=== PATIENT | female | born 1945 | race Caucasian/White ===

== ENCOUNTER 2018-04-08 02:02 | Outpatient (CLI) | payer MEDICARE | END 2018-04-08 02:03 | disposition EMS.NT | LOC: EMS 02:02 | PROVIDERS: ATTEND Surgery | DX: R46.4 Slowness and poor responsiveness (principal); R73.09 Other abnormal glucose; R61 Generalized hyperhidrosis ==

== ENCOUNTER 2019-05-26 02:30 | Outpatient (CLI) | payer MEDICARE | END 2019-05-26 02:31 | disposition EMS.NT | LOC: EMS 02:30 | PROVIDERS: ATTEND Surgery | DX: R47.81 Slurred speech (principal) ==

== ENCOUNTER 2022-06-13 00:37 | Outpatient (CLI) | payer MEDICARE | END 2022-06-13 00:38 | disposition EMS.NT | LOC: EMS 00:37 | DX: R06.02 Shortness of breath (principal); R07.81 Pleurodynia ==

== ENCOUNTER 2022-07-20 14:04 | Outpatient (CLI) | payer MEDICARE | END 2022-07-20 14:05 | disposition EMS.NT | LOC: EMS 14:04 | DX: R40.4 Transient alteration of awareness (principal) ==

== ENCOUNTER → 2022-12-06 | Outpatient (CLI) | payer MEDICARE | END | disposition short-term general hospital (02) | LOC: EMS 19:38 | DX: R05.9 Cough, unspecified (principal); R06.00 Dyspnea, unspecified; R10.31 Right lower quadrant pain; E11.65 Type 2 diabetes mellitus with hyperglycemia; R00.0 Tachycardia, unspecified | CPT/HCPCS: A0425; A0427 ==

== ENCOUNTER 2022-12-16 20:39 | Outpatient (CLI) | payer MEDICARE | END 2022-12-16 23:59 | disposition short-term general hospital (02) | LOC: EMS 20:39 | DX: R06.02 Shortness of breath (principal); R05.9 Cough, unspecified | CPT/HCPCS: A0425; A0429 ==

== ENCOUNTER 2023-08-16 15:06 | Outpatient (CLI) | payer MEDICARE | END 2023-08-16 23:59 | disposition short-term general hospital (02) | LOC: EMS 15:06 | DX: R53.1 Weakness (principal); R07.9 Chest pain, unspecified; R06.00 Dyspnea, unspecified; E11.65 Type 2 diabetes mellitus with hyperglycemia; Z79.4 Long term (current) use of insulin | CPT/HCPCS: A0425; A0427 ==

== ENCOUNTER → 2023-08-31 | Outpatient (CLI) | payer MEDICARE | END | disposition short-term general hospital (02) | LOC: EMS 09:07 | DX: R41.82 Altered mental status, unspecified (principal); R32 Unspecified urinary incontinence; R15.9 Full incontinence of feces; R47.1 Dysarthria and anarthria; R00.0 Tachycardia, unspecified; R06.82 Tachypnea, not elsewhere classified; R53.1 Weakness; R29.810 Facial weakness; E11.65 Type 2 diabetes mellitus with hyperglycemia | CPT/HCPCS: A0425; A0427 ==

== ENCOUNTER 2023-10-04 10:39 | Outpatient (CLI) | payer MEDICARE | END 2023-10-04 10:40 | disposition short-term general hospital (02) | LOC: EMS 10:39 | DX: R47.81 Slurred speech (principal); R53.1 Weakness; R41.0 Disorientation, unspecified; R45.1 Restlessness and agitation | CPT/HCPCS: A0425; A0429 ==

== ENCOUNTER 2023-10-16 22:25 | Outpatient (CLI) | payer MEDICARE | END 2023-10-16 22:26 | disposition critical access hospital (66) | LOC: EMS 22:25 | DX: R40.4 Transient alteration of awareness (principal); R46.89 Other symptoms and signs involving appearance and behavior | CPT/HCPCS: A0425; A0429 ==

== ENCOUNTER 2023-10-16 23:12 | Emergency (ER) | payer MEDICARE ==
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
[2023-10-16 23:32] LABS: BASOPHILS # (AUTO) 0.1 10^3/uL (0.0-0.1); BASOPHILS % (AUTO) 0.8 %; EOSINOPHILS # (AUTO) 0.3 10^3/uL (0.0-0.7); EOSINOPHILS % (AUTO) 2.8 %; HCT - HEMATOCRIT 39.6 % (37.0-47.0); HGB - HEMOGLOBIN 12.4 g/dL (12.0-16.0); LYMPHOCYTES # (AUTO) 3.3 10^3/uL (1.5-3.5); LYMPHOCYTES % (AUTO) 35.9 %; MEAN CORPUSCULAR HGB CONC 31.3 g/dL (32.0-36.0); MEAN CORPUSCULAR VOLUME 86.1 fL (81.0-99.0); MONOCYTES # (AUTO) 0.7 10^3/uL (0.0-1.0); MONOCYTES % (AUTO) 7.9 %; NEUTROPHILS # (AUTO) 4.8 10^3/uL (1.5-6.6); NEUTROPHILS % (AUTO) 52.4 %; PLT - PLATELET COUNT 284 10^3/uL (130-450); RED CELL DISTRIBUTION WIDTH 14.5 % (12.0-15.0); WHITE BLOOD COUNT 9.1 x10^3/uL (4.8-10.8)
[2023-10-16] MEDS: HALOPERIDOL 5 MG/ML VIAL IVP STA (23:41)
[2023-10-16] MEDS: QUEtiapine 25 MG TABLET PO STA (23:44)
[2023-10-16 23:52] LABS: ACETAMINOPHEN 0.3 ug/mL; ALBUMIN/GLOBULIN RATIO 1.6 (1.0-2.2); ALKALINE PHOSPHATASE 56 IU/L (42-121); ALT ALANINE AMINOTRANSFERASE 19 IU/L (10-60); AST ASPARTATE AMINOTRANSFERASE 28 IU/L (10-42); BILIRUBIN,TOTAL 0.2 mg/dL (0.2-1.0); BUN - BLOOD UREA NITROGEN 16 mg/dL (6-20); CALCIUM 9.6 mg/dL (8.5-10.3); CARBON DIOXIDE - CO2 28 mmol/L (21-32); CHLORIDE 106 mmol/L (101-111); CK- CREATINE KINASE 33 IU/L (30-223); CREATININE 0.8 mg/dL (0.6-1.3); ETOH - ETHANOL < 10.0 mg/dL; GFR - MDRD 70 (>89); GLUCOSE 86 mg/dL (74-104); LIPASE 18 U/L (11-82); MAGNESIUM 1.6 mg/dL (1.7-2.3); POTASSIUM 3.9 mmol/L (3.5-4.5); SODIUM 138 mmol/L (135-145); TOTAL PROTEIN 6.5 g/dL (6.4-8.9)
[2023-10-16 23:56] LABS: SALICYLATE < 1.5 mg/dL
[2023-10-17 00:01] LABS: THYROID STIMULATING HORMONE 1.67 uIU/mL (0.34-5.60)
[2023-10-17 00:57] LABS: BILIRUBIN,URINE NEGATIVE (NEGATIVE); GLUCOSE, URINE (UA) NEGATIVE (NEGATIVE); KETONES,URINE (UA) TRACE mg/dL (NEGATIVE); LEUKOCYTE ESTERASE, URINE LARGE (NEGATIVE); NITRITE,URINE NEGATIVE (NEGATIVE); OCCULT BLOOD,URINE NEGATIVE (NEGATIVE); PROTEIN,URINE NEGATIVE (NEGATIVE); UROBILINOGEN,URINE 0.2 (NORMAL) E.U./dL (NORMAL)
[2023-10-17 01:03] LABS: CLARITY,URINE CLOUDY (CLEAR)
[2023-10-17 01:08] LABS: AMPHETAMINE SCREEN,URINE NEGATIVE (NEGATIVE); BACTERIA,URINE Many /HPF (None Seen); BENZODIAZEPINES SCREEN, URINE POSITIVE (NEGATIVE); COCAINE SCREEN URINE NEGATIVE (NEGATIVE); METHAMPHETAMINES SCREEN, URINE NEGATIVE (NEGATIVE); OPIATE SCREEN, URINE NEGATIVE (NEGATIVE); RBC,URINE 0-5 /HPF (0-5); SQUAMOUS EPITHELIAL CELL,UR RARE Squamous (<= Few); THC CANNABINOID SCREEN, URINE NEGATIVE (NEGATIVE); TRICYCLIC ANTIDEPRESSANT,URINE NEGATIVE (NEGATIVE); WBC,URINE >25 /HPF (0-5)
[2023-10-17 01:09] LABS: BARBITURATE SCREEN,UR NEGATIVE (NEGATIVE); BUPRENORPHINE SCREEN, URINE NEGATIVE (NEGATIVE); METHADONE SCREEN, URINE NEGATIVE (NEGATIVE); OXYCODONE SCREEN, URINE NEGATIVE (NEGATIVE)
--- NOTE | 2023-10-17 01:09 | CT Report ---
PROCEDURE: Head WO INDICATIONS: confusion, agitation TECHNIQUE: Noncontrast 4.5 mm thick angled axial sections acquired from the foramen magnum to the vertex. For r adiation dose reduction, the following was used: automated exposure control, adjustment of mA and/or kV according to patient size. COMPARISON: None. FINDINGS: Image quality: Diagnostic CSF spaces: Basal cisterns are patent. Lateral ventricles are symmetric. Volume: Vascular calcifications. Periventricular white matter disease is commonly seen with chronic m icroangiopathy. Volume loss is present. These findings are moderate. Brain: Encephalomalacia in the right occipital lobe, chronic. No gross loss of hall-white differentia tion otherwise, no acute intracranial hemorrhage. Craniofacial structures: No paranasal sinus opacification. IMPRESSION: No acute intracranial abnormality. Old encephalomalacia in the right occipital lobe. If there is high concern for parenchymal pathology, consider further evaluation with MRI. Reviewed by: Alvin Bautista MD on 10/17/2023 1:08 AM [facility] Approved by: Alvin Bautista MD on 10/17/2023 1:08 AM [facility] Station ID: [id number]
[2023-10-17] MEDS: cefTRIAXone 1 GM VIAL IVP STA (01:31)
[2023-10-17 01:57] VITALS: BP 182/76; O2SAT 98
== END 2023-10-17 02:42 | disposition home or self-care (01) ==
LOC: EDBD → EDUNIT# → ED 23:12
DX: N39.0 Urinary tract infection, site not specified (principal); B95.2 Enterococcus as the cause of diseases classified elsewhere; R41.0 Disorientation, unspecified; E11.9 Type 2 diabetes mellitus without complications; E03.9 Hypothyroidism, unspecified; I10 Essential (primary) hypertension; Z79.899 Other long term (current) drug therapy; Z79.84 Long term (current) use of oral hypoglycemic drugs
CPT/HCPCS: 36415; 70450; 80053; 80306; 80307; 81001; 82550; 83690; 83735; 84443; 85025; 87077; 87086; 96374; 96375; 99284; G0480; 80320; 80329; 81003; 87181

== ENCOUNTER 2023-10-25 03:59 | Outpatient (CLI) | payer MEDICARE | END 2023-10-25 04:00 | disposition critical access hospital (66) | LOC: EMS 03:59 | DX: R53.1 Weakness (principal); R29.810 Facial weakness; R47.81 Slurred speech; H53.9 Unspecified visual disturbance; R44.1 Visual hallucinations | CPT/HCPCS: A0425; A0427 ==

== ENCOUNTER 2023-10-25 04:43 | Inpatient (IN) | payer MEDICARE ==
--- NOTE | 2023-10-25 05:04 | ED Physician Documentation ---
History of Present Illness - Stated complaint Stated Complaint: WEAKNESS, RT SIDE DEFICIT, GLF - Chief complaint Chief Complaint: Neuro - History obtained from History obtained from: EMS - Additonal information Additional information: WILIAM. HPI is from EMS. Patient fell at approximately 3 AM this morning while walking to the bathroom. There is no reports of injury from family that was on scene, while EMS was assessing the patient, family (specifically, patient's daughter) said that she has been noting patient exhibiting slurred speech, making comments that would indicate visual hallucinations and right-sided weakness since 3 PM yesterday. EMS says that family initially was not concerned about these findings, but due to history of stroke however, as they were talking to EMS, a became less confident as to which side was involved in the previous stroke. EMS says that on initial evaluation, they noted right-sided weakness (manifest in the right upper extremity), but patient did not seem to have a left upper extremity weakness on reevaluation shortly prior to arrival to the ER. I cannot obtain HPI/ROS from patient, as her speech is essentially unintelligible. Is unclear to me if this is due to slurred speech or very quiet speech; she seems to be having elements of both of these. Patient was treated and released from this emergency department 9 days ago with chief concerns of confusion, agitation, and tearful affect for 3 days. The ED MD note from that visit also indicates "history limited by patient AMS".The ED MD note from that visit indicates that there were no concerning or diagnostic findings on blood test, CT head. No specific diagnosis was achieved. Andrew is patient's 11th ED visit over the past 12 months to 4 different [facility] emergency departments. A number of these visits include inpatient stays for many different diagnoses that are too numerous and varied to summarize in this HPI. Review of Systems Unable to obtain: Other (speaks very quietly but also with slurred speech; I cannot understand anything she is trying to say to me. She is awake and following commands, makes good eye contact) PD PAST MEDICAL HISTORY - Past Medical History Past Medical History: Yes Neuro: CVA Endocrine/Autoimmune: Type 2 diabetes - Present Medications Home Medications: Ambulatory Orders Medication Instructions Recorded Confirmed Atorvastatin [Lipitor] 10/16/23 Calcium Carbonate [Calcium] 600 mg PO 10/16/23 Empagliflozin [Jardiance] 10/16/23 Ferrous Fumarate/Ascorbic Acid 10/16/23 [Js-Sequels 65-25 mg Caplet] Irbesartan 10/16/23 Levothyroxine [Synthroid] 50 mcg PO QDAC 10/16/23 Magnesium Oxide [Mag Ox] 400 mg PO 0800 10/16/23 Metoclopramide [Reglan] 10/16/23 Polyethylene Glycol 8000 500 gm MC 10/16/23 [Polyethylene Glycol] Quetiapine Fumarate [Seroquel] 50 mg PO 10/16/23 Venlafaxine [Effexor] 75 mg PO BID 10/16/23 Cefpodoxime Proxetil [Vantin] 200 mg PO Q12H #28 tablet 10/17/23 - Allergies Allergies/Adverse Reactions: Allergies Allergy/AdvReac Type Severity Reaction Status Date / Time ampicillin Allergy Rash Verified 10/25/23 04:58 cefuroxime Allergy Unknown Verified 10/25/23 04:58 heparin Allergy Unknown Verified 10/25/23 04:58 - Social History Does the pt smoke?: No Smoking Status: Never smoker PD ED PE NORMAL - Vitals Vital signs reviewed: Yes - General General: No acute distress, Well developed/nourished, Other (awake, alert. unable to ascertain orientation due to unintelligible speech) - HEENT HEENT: Atraumatic, PERRL, EOMI, Other (parched mucous membranes) - Neck Neck: Supple, no meningeal sign - Cardiac Cardiac: RRR - Respiratory Respiratory: No respiratory distress, Clear bilaterally - Derm Derm: Normal color, Warm and dry - Neuro Neuro: No motor deficit (4/5 (but equal) bilateral attraction worker strength and bilateral plantarflexion) Eye Opening: Spontaneous Motor: Obeys Commands PD ED PE EXPANDED - Cardiac Cardiac: Murmur Present (2/6 CHANDAN cardiac base) Results - Vitals Vitals: Vital Signs - 24 hr 10/25/23 10/25/23 10/25/23 04:51 05:00 05:30 Temperature 36 C L Heart Rate 102 H 103 H 106 H Respiratory 15 18 21 Rate Blood Pressure 138/64 H 134/44 H 145/79 H O2 Saturation 100 94 99 10/25/23 10/25/23 10/25/23 06:00 08:00 09:00 Temperature Heart Rate 104 H 106 H 110 H Respiratory 17 20 16 Rate Blood Pressure 136/94 H 118/48 L 118/57 L O2 Saturation 100 95 98 Oxygen O2 Source Room air - Labs Labs: Laboratory Tests 10/25/23 10/25/23 10/25/23 05:21 05:21 05:58 WBC 13.8 H RBC 4.51 Hgb 12.1 Hct 39.8 MCV 88.2 MCH 26.8 L MCHC 30.4 L RDW 14.6 Plt Count 307 MPV 10.9 H Neut # (Auto) 12.7 H Lymph # (Auto) 0.5 L [place] # (Auto) 0.5 Eos # (Auto) 0.0 Baso # (Auto) 0.1 Absolute Nucleated RBC 0.00 Nucleated RBC % 0.0 VBG pH VBG pCO2 VBG pO2 VBG HCO3 VBG Total CO2 VBG O2 Saturation VBG Base Excess Sodium 135 Potassium 5.7 H Chloride 103 Carbon Dioxide 6 L* Anion Gap 26.0 H BUN 27 H Creatinine 1.2 Estimated GFR (MDRD) 44 L Glucose 402 H POC Whole Bld Glucose Calcium 9.0 Magnesium Total Bilirubin 0.3 AST 10 ALT 9 L Alkaline Phosphatase 60 Total Protein 7.1 Albumin 4.5 Globulin 2.6 Albumin/Globulin Ratio 1.7 Lipase < 10 L Urine Color YELLOW Urine Clarity HAZY Urine pH 5.5 Ur Specific [place] 1.025 Urine Protein 30 H Urine Glucose (UA) 500 H Urine Ketones >=80 H Urine Occult Blood TRACE-INTA Urine Nitrite NEGATIVE Urine Bilirubin NEGATIVE Urine Urobilinogen 0.2 (NORMAL) Ur Leukocyte Esterase TRACE H Urine RBC 0-5 Urine WBC 4-5 Ur Squamous Epith Cells FEW Squamous Urine Bacteria Rare Urine Yeast PRESENT Ur Microscopic Review INDICATED Urine Culture Comments INDICATED Urine Opiates Screen NEGATIVE Ur Buprenorphine Scrn NEGATIVE Ur Oxycodone Screen NEGATIVE Urine Methadone Screen NEGATIVE Ur Barbiturates Screen NEGATIVE Ur Tricyclics Screen NEGATIVE Ur Phencyclidine Scrn NEGATIVE Ur Amphetamine Screen NEGATIVE U Methamphetamines Scrn NEGATIVE U Benzodiazepines Scrn POSITIVE H Urine Cocaine Screen NEGATIVE U Cannabinoids Screen NEGATIVE Ur Drug Screen Comment CUTOFF CONC BELOW: Ethyl Alcohol < 10.0 Serum Ketones 10/25/23 10/25/23 10/25/23 06:33 06:33 06:33 WBC RBC Hgb Hct MCV MCH MCHC RDW Plt Count MPV Neut # (Auto) Lymph # (Auto) [place] # (Auto) Eos # (Auto) Baso # (Auto) Absolute Nucleated RBC Nucleated RBC % VBG pH 7.052 L* VBG pCO2 19.1 L VBG pO2 55.7 H VBG HCO3 5.2 L VBG Total CO2 5.8 L VBG O2 Saturation 83.7 H VBG Base Excess -23.5 L Sodium 135 Potassium 5.9 H Chloride 104 Carbon Dioxide 5 L* Anion Gap 26.0 H BUN 27 H Creatinine 1.2 Estimated GFR (MDRD) 44 L Glucose 404 H POC Whole Bld Glucose Calcium 9.1 Magnesium 1.8 Total Bilirubin AST ALT Alkaline Phosphatase Total Protein Albumin Globulin Albumin/Globulin Ratio Lipase Urine Color Urine Clarity Urine pH Ur Specific [place] Urine Protein Urine Glucose (UA) Urine Ketones Urine Occult Blood Urine Nitrite Urine Bilirubin Urine Urobilinogen Ur Leukocyte Esterase Urine RBC Urine WBC Ur Squamous Epith Cells Urine Bacteria Urine Yeast Ur Microscopic Review Urine Culture Comments Urine Opiates Screen Ur Buprenorphine Scrn Ur Oxycodone Screen Urine Methadone Screen Ur Barbiturates Screen Ur Tricyclics Screen Ur Phencyclidine Scrn Ur Amphetamine Screen U Methamphetamines Scrn U Benzodiazepines Scrn Urine Cocaine Screen U Cannabinoids Screen Ur Drug Screen Comment Ethyl Alcohol Serum Ketones MODERATE H 10/25/23 08:13 WBC RBC Hgb Hct MCV MCH MCHC RDW Plt Count MPV Neut # (Auto) Lymph # (Auto) [place] # (Auto) Eos # (Auto) Baso # (Auto) Absolute Nucleated RBC Nucleated RBC % VBG pH VBG pCO2 VBG pO2 VBG HCO3 VBG Total CO2 VBG O2 Saturation VBG Base Excess Sodium Potassium Chloride Carbon Dioxide Anion Gap BUN Creatinine Estimated GFR (MDRD) Glucose POC Whole Bld Glucose 406 H Calcium Magnesium Total Bilirubin AST ALT Alkaline Phosphatase Total Protein Albumin Globulin Albumin/Globulin Ratio Lipase Urine Color Urine Clarity Urine pH Ur Specific [place] Urine Protein Urine Glucose (UA) Urine Ketones Urine Occult Blood Urine Nitrite Urine Bilirubin Urine Urobilinogen Ur Leukocyte Esterase Urine RBC Urine WBC Ur Squamous Epith Cells Urine Bacteria Urine Yeast Ur Microscopic Review Urine Culture Comments Urine Opiates Screen Ur Buprenorphine Scrn Ur Oxycodone Screen Urine Methadone Screen Ur Barbiturates Screen Ur Tricyclics Screen Ur Phencyclidine Scrn Ur Amphetamine Screen U Methamphetamines Scrn U Benzodiazepines Scrn Urine Cocaine Screen U Cannabinoids Screen Ur Drug Screen Comment Ethyl Alcohol Serum Ketones - Rads (name of study) CTH Relevant Findings:: Prelim report reviewed, See rad report PD Medical Decision Making - ED course Complexity details: reviewed old records, reviewed results, re-evaluated patient, considered differential, d/w patient ED course: No concerning findings on the CT head. The ED MD note from her visit 9 days ago indicates that records from [place] were obtained and a more thorough stroke-oriented workup was undertaken including CT and MRI of brain "with no evidence of stroke, though she does have microvascular changes." There are significant abnormalities on tonight's blood tests, including hyperglycemia, CO2 of 6, pH of 7.05 on VBG, and moderate serum ketones. She has noted to be slightly tachypneic and having noticeably large tidal volumes (by my observation, not by measurement). These findings would all be consistent with DKA, which could explain AMS. These labs are resulted shortly before the end of my shift. Care of patient is turned over to the oncoming ED physician (Dr. Greenfield) at the end of my shift. Departure - Departure Disposition: 66 [facility] DC/Xfer Clinical Impression: Altered mental status, DKA, type 2 Forms: PCP List
[2023-10-25 05:31] LABS: BASOPHILS # (AUTO) 0.1 10^3/uL (0.0-0.1); BASOPHILS % (AUTO) 0.4 %; EOSINOPHILS % (AUTO) 0.1 %; HCT - HEMATOCRIT 39.8 % (37.0-47.0); HGB - HEMOGLOBIN 12.1 g/dL (12.0-16.0); LYMPHOCYTES # (AUTO) 0.5 10^3/uL (1.5-3.5); LYMPHOCYTES % (AUTO) 3.5 %; MEAN CORPUSCULAR HEMOGLOBIN 26.8 pg (27.0-31.0); MEAN CORPUSCULAR HGB CONC 30.4 g/dL (32.0-36.0); MEAN CORPUSCULAR VOLUME 88.2 fL (81.0-99.0); MEAN PLATELET VOLUME 10.9 fL (7.9-10.8); MONOCYTES # (AUTO) 0.5 10^3/uL (0.0-1.0); MONOCYTES % (AUTO) 3.5 %; NEUTROPHILS # (AUTO) 12.7 10^3/uL (1.5-6.6); NEUTROPHILS % (AUTO) 91.8 %; PLT - PLATELET COUNT 307 10^3/uL (130-450); RED BLOOD COUNT 4.51 10^6/uL (4.20-5.40); RED CELL DISTRIBUTION WIDTH 14.6 % (12.0-15.0); WHITE BLOOD COUNT 13.8 x10^3/uL (4.8-10.8)
[2023-10-25 06:04] LABS: ALBUMIN 4.5 g/dL (3.2-5.5); ETOH - ETHANOL < 10.0 mg/dL
[2023-10-25 06:11] LABS: BILIRUBIN,URINE NEGATIVE (NEGATIVE); GLUCOSE, URINE (UA) 500 mg/dL (NEGATIVE); KETONES,URINE (UA) >=80 mg/dL (NEGATIVE); LEUKOCYTE ESTERASE, URINE TRACE (NEGATIVE); NITRITE,URINE NEGATIVE (NEGATIVE); OCCULT BLOOD,URINE TRACE-INTA (NEGATIVE); PH,URINE 5.5 PH (5.0-7.5); PROTEIN,URINE 30 mg/dL (NEGATIVE); UROBILINOGEN,URINE 0.2 (NORMAL) E.U./dL (NORMAL)
[2023-10-25 06:15] LABS: CLARITY,URINE HAZY (CLEAR)
[2023-10-25 06:18] LABS: BACTERIA,URINE Rare /HPF (None Seen); RBC,URINE 0-5 /HPF (0-5); SQUAMOUS EPITHELIAL CELL,UR FEW Squamous (<= Few); YEAST,URINE PRESENT
[2023-10-25 06:22] LABS: ALBUMIN/GLOBULIN RATIO 1.7 (1.0-2.2); ALKALINE PHOSPHATASE 60 IU/L (42-121); ALT ALANINE AMINOTRANSFERASE 9 IU/L (10-60); AST ASPARTATE AMINOTRANSFERASE 10 IU/L (10-42); BILIRUBIN,TOTAL 0.3 mg/dL (0.2-1.0); BUN - BLOOD UREA NITROGEN 27 mg/dL (6-20); CARBON DIOXIDE - CO2 6 mmol/L (21-32); CHLORIDE 103 mmol/L (101-111); CREATININE 1.2 mg/dL (0.6-1.3); GFR - MDRD 44 (>89); GLUCOSE 402 mg/dL (74-104); LIPASE < 10 U/L (11-82); POTASSIUM 5.7 mmol/L (3.5-4.5); SODIUM 135 mmol/L (135-145); TOTAL PROTEIN 7.1 g/dL (6.4-8.9)
[2023-10-25 06:29] LABS: AMPHETAMINE SCREEN,URINE NEGATIVE (NEGATIVE); BARBITURATE SCREEN,UR NEGATIVE (NEGATIVE); BENZODIAZEPINES SCREEN, URINE POSITIVE (NEGATIVE); BUPRENORPHINE SCREEN, URINE NEGATIVE (NEGATIVE); COCAINE SCREEN URINE NEGATIVE (NEGATIVE); METHADONE SCREEN, URINE NEGATIVE (NEGATIVE); METHAMPHETAMINES SCREEN, URINE NEGATIVE (NEGATIVE); OPIATE SCREEN, URINE NEGATIVE (NEGATIVE); OXYCODONE SCREEN, URINE NEGATIVE (NEGATIVE); THC CANNABINOID SCREEN, URINE NEGATIVE (NEGATIVE); TRICYCLIC ANTIDEPRESSANT,URINE NEGATIVE (NEGATIVE)
[2023-10-25 06:41] LABS: VBG BASE EXCESS -23.5 mmol/L (-2 - +2); VBG HCO3 5.2 mmol/L (23-28); VBG PCO2 19.1 mmHg (41-51); VBG PO2 55.7 mmHg (25-47); VBG TOTAL CO2 5.8 mmol/L (24-29)
[2023-10-25 06:42] LABS: VBG OXYGEN SATURATION 83.7 % (60-80)
[2023-10-25 06:44] LABS: VBG PH 7.052 (7.31-7.41)
--- NOTE | 2023-10-25 07:56 | CT Report ---
PROCEDURE: Head WO INDICATIONS: AMS TECHNIQUE: Noncontrast 4.5 mm thick angled axial sections acquired from the foramen magnum to the vertex. For r adiation dose reduction, the following was used: automated exposure control, adjustment of mA and/or kV according to patient size. COMPARISON: CT head 10/17/2023. FINDINGS: Image quality: Excellent. CSF spaces: Basal cisterns are patent. No extra-axial fluid collections. Ventricles are normal in size and shape. Brain: No midline shift. No acute intracranial hemorrhage or mass effect. Small area of chronic ence phalomalacia seen in the medial posterior right occipital lobe as previously seen, related to an old infarct. There is also a small focus of chronic encephalomalacia in the left upper anitha. Mild general ized parenchymal volume loss is again noted and there are mild chronic microvascular ischemic changes . Intracranial atherosclerotic calcifications are present. Skull and face: Calvarium and visualized facial bones are intact, without suspicious lesions. Sinuses: Visualized sinuses and mastoids are clear. IMPRESSION: 1.No acute intracranial pathology. 2.Stable remote prior infarcts in the right occipital lobe and left anitha. Reviewed by: Jt Ram MD on 10/25/2023 7:55 AM PST Approved by: Jt Ram MD on 10/25/2023 7:55 AM PST Station ID: [id number]
[2023-10-25 07:59] LABS: MAGNESIUM 1.8 mg/dL (1.7-2.3)
[2023-10-25 08:05] LABS: CALCIUM 9.1 mg/dL (8.5-10.3); CREATININE 1.2 mg/dL (0.6-1.3); POTASSIUM 5.9 mmol/L (3.5-4.5)
[2023-10-25] MEDS: INSULIN REGULAR HUMAN 300 UNIT/3 ML VIAL IVP STA (08:15)
[2023-10-25] MEDS: SODIUM CHLORIDE 0.9% 1,000 ML IV STA ×2 (08:16→08:17)
[2023-10-25] MEDS: INSULIN REGULAR IN 0.9 % NS 100 UNIT/100 ML BAG IV SCH ×2 (10:21→14:08)
[2023-10-25 11:27] LABS: VBG HCO3 5.5 mmol/L (23-28); VBG PO2 45.2 mmHg (25-47); VBG TOTAL CO2 6.1 mmol/L (24-29)
[2023-10-25 11:28] LABS: VBG BASE EXCESS -23.7 mmol/L (-2 - +2); VBG OXYGEN SATURATION 76.1 % (60-80)
[2023-10-25 11:29] LABS: VBG PH 7.033 (7.31-7.41)
[2023-10-25] MEDS: FLUCONAZOLE 200 MG/100 ML 100 ML IV ONE (11:41)
[2023-10-25 11:47] LABS: CALCIUM 8.7 mg/dL (8.5-10.3); CREATININE 1.1 mg/dL (0.6-1.3); POTASSIUM 5.3 mmol/L (3.5-4.5)
--- NOTE | 2023-10-25 12:14 | ED Physician Documentation ---
ED Addendum - Addendum Addendum: 10/25/23 12:11 The patient has been interactive with opening her eyes and verbally com municating and simple words. No obvious localizing deficit of the face. Generalized weakness for arm stock turner and hand stock turner. She does follow commands sluggishly. She remains still acidotic. We had given some fluid bolus and started insulin drip for her DKA. Repeat labs still showed acidosis. Potassium level is still slightly elevated. She is given continued fluids without any electrolyte supplements at this point. We had a weighted opening of a floor bed in the ICU and there is now 1 available. I talked with the hospitalist Dr. Cronin who will admit the patient for ongoing care. Likely trigger for her DKA, could be possible UTI. There is some yeast noted on her urine. A few white cells are still noted along with the ketones. She had had a UTI with Enterococcus on her recent visit. Treated with Vantin so unlikely covered. Did give a dose of Diflucan for yeast and also Cipro for correction levofloxacin for possible UTI. Chest x-ray is clear without any signs of infiltrate. A CT of the head had been done without any acute findings. Old CVAs are noted. Critical care time is 55 minutes including reassessing the patient, ordering medications. Reassessing labs and physical exam including insulin drip and critical lab values. Disposition: The patient is admitted to the hospital in stable condition. Diagnoses: 1. Altered mental status 2. Generalized weakness 3. UTI 4. DKA acute
[2023-10-25] MEDS ORDERED: ONDANSETRON 4 MG/2 ML VIAL IVP PRN (12:21)
[2023-10-25] MEDS: levoFLOXacin 750 MG/150 ML 750 MG/150 ML BAG IV STA (12:53)
[2023-10-25 12:58] LABS: B. PARAPERTUSSIS- RESP PCR PAN NOT DETECTED; B. PERTUSSIS- RESP PCR PANEL NOT DETECTED; C. PNEUMONIAE- RESP PCR PANEL NOT DETECTED; CORONAVIRUS 229E-RESP PCR NOT DETECTED; CORONAVIRUS HKU1-RESP PCR NOT DETECTED; CORONAVIRUS NL63-RESP PCR NOT DETECTED; CORONAVIRUS OC43-RESP PCR NOT DETECTED; HUMAN METAPNEUMOVIRUS NOT DETECTED; INFLUENZA A- RESP PCR PANEL NOT DETECTED; INFLUENZA B - RESP PCR PANEL NOT DETECTED; M. PNEUMONIAE- RESP PCR PANEL NOT DETECTED; PARAINFLUENZA VIRUS 1 NOT DETECTED; PARAINFLUENZA VIRUS 2 NOT DETECTED; PARAINFLUENZA VIRUS 3 NOT DETECTED; PARAINFLUENZA VIRUS 4 NOT DETECTED; RHINOVIRUS/ENTEROVIRUS NOT DETECTED; RSV- RESP PCR PANEL NOT DETECTED; SARS-CoV-2 -RESP PCR PANEL NOT DETECTED
--- NOTE | 2023-10-25 13:11 | XRAY Report ---
PROCEDURE: Chest 1V INDICATIONS: altered mental status TECHNIQUE: One view of the chest was acquired. COMPARISON: Chest radiographs 05/24/2010 FINDINGS: Surgical changes and devices: None. Lungs and pleura: No pleural effusions or pneumothorax. Lungs are clear. Previously seen hiatal h ernia appears less prominent. Mediastinum: Mediastinal contours appear normal. Heart size is normal. Bones and chest wall: No suspicious bony lesions. Overlying soft tissues appear unremarkable. IMPRESSION: No acute cardiopulmonary process. Reviewed by: Jt Ram MD on 10/25/2023 1:09 PM PST Approved by: Jt Ram MD on 10/25/2023 1:09 PM [facility] Station ID: [id number]
[2023-10-25] MEDS: DEXTROSE 5%-0.9% NACL 1,000 ML IV SCH (14:16)
[2023-10-25] MEDS: SODIUM CHLORIDE 0.9% 1,000 ML IV SCH (14:26)
--- NOTE | 2023-10-25 14:40 | HISTORY & PHYSICAL EXAMINATION ---
Chief Complaint - Chief Complaint Chief Complaint: Weakness, DKA History of Present Illness - Admitted From Admitted From:: ED - History Obtained From Records Reviewed: [facility] History obtained from: Chart review, patient Exam Limitations: Altered mental status - History of Present Illness HPI Comment/Other: Corine Sol is a 78 yo F w/ a PMHx of T2DM, CVA, NC, HLD who presented to [facility] for AMS s/p unwitnessed fall at 3 am on 10/25/23. Per EMS patient's daughter reported patient had slurred speech and was making comments that would indicate visual hallucinations and right-sided weakness since 3 PM yesterday. EMS eval uation found right sided weakness. In the ED HPI/ROS was unable to be obtained from patient as her speech was unintelligible, unclear if slurred speech, quiet speech or both. However, she was awake and following commands and made good eye contact. In the ED, she had hyperglycemia, CO2 of 6, pH of 7.05 on VBG, and moderate serum ketones. Yeast and white cells noted along ketones in urine. In ED was given diflucan, ciprofloxacin and levofloxacin. CXR showed no signs of infiltrate. CT showed no acute findings, old CVAs noted. Per ED chart notes, patient was treated and released from this emergency department 9 days ago with chief concerns of confusion, agitation, and tearful affect for 3 days. The ED note from that visit also indicates "history limited by patient AMS". The note from that visit indicates that there were no concerning or diagnostic findings on blood test, CT head. No specific diagnosis was achieved. Per ED chart note, emery is patient's 11th ED visit over the past 12 months to 4 different [facility] emergency departments- "A number of these visits include inpatient stays for many different diagnoses that are too numerous and varied to summarize in this HPI" Upon exam today she is laying down in bed, eyes partially closed and unfocused. She is unable to participate in assessment other than relaying that she has painful urination and her back hurts. Requests food. When giving patient ice chips she becomes tearful. When asked why she feels upset, she responds "I hate my home and I hate it here". MARIAM Espinosa was able to talk to daughter, Joan, on the phone today after admission. Joan plans to come visit patient tomorrow. Patient lives with her daughter and her grandson in a home in [place]. Patient came to live with them after a hospitalization last year, where she was discharged to a SNF, and then after moved in with daughter. Patient is able to ambulate independently with a walker, and her family assists her with ADLs. Patient also has a son, Hector, that lives in [place]. Joan states that patient has a POLST on file and patient is DNR. Review of PMHx with daughter revealed hx of 4 falls in the past year, T2DM, CVA sometime in 2022. No known psychiatric hx. Patient used to use tobacco but quit 24 years ago. Drinks alcohol, approximately 16 oz of vodka daily, with last known drink estimated 10/23/23. Joan states that patient's b lood sugar yesterday at 9pm was 300, and she was given 30 U short acting insulin. She then fell later that night. History - Past Medical History Neuro: reports: CVA Endocrine/Autoimmune: reports: Type 2 diabetes Other Past Medical History: Unable to verify PMHx with patient - Past Surgical History Other past surgical history: Unable to verify PMHx with patient due to AMS - Family & Social History Family History Comment/Other: Unable to assess due to AMS Social History Notes: History obtained from Joan, patient's daughter. Patient lives with her daughter and her grandson in a home in [place]. Patient came to live with them after a hospitalization last year, where she was discharged to a SNF, and then after moved in with daughter. Patient is able to ambulate independently with a walker, and her family assists her with ADLs. Patient also has a son, Hector, that lives in [place]. - Substance History Use: Uses substance without health or social issues: Alcohol Tobacco Details: Cigarettes (Former smoker, quit in 1999) - POLST Patient has POLST: Yes POLST Status: DNR Meds/Allgy - Home Medications Home Medications: Ambulatory Orders Medication Instructions Recorded Confirmed Irbesartan 150 mg PO DAILY 10/16/23 10/25/23 Levothyroxine [Synthroid] 25 mcg PO QDAC 10/16/23 10/25/23 Atorvastatin Calcium 40 mg PO QPM 10/25/23 10/25/23 Empagliflozin [Jardiance] 10 mg PO DAILY 10/25/23 10/25/23 Insulin NPH Hum/Reg Insulin Hm 15 unit SUBQ QPM 10/25/23 10/25/23 [Humulin 70/30 Kwikpen] Insulin NPH Hum/Reg Insulin Hm 30 unit SUBQ DAILY 10/25/23 10/25/23 [Humulin 70/30 Kwikpen] Venlafaxine ER [Effexor ER] 75 mg PO BID 10/25/23 10/25/23 - Allergies Allergies/Adverse Reactions: Allergies Allergy/AdvReac Type Severity Reaction Status Date / Time ampicillin Allergy Rash Verified 10/25/23 04:58 cefuroxime Allergy Unknown Verified 10/25/23 04:58 heparin Allergy Unknown Verified 10/25/23 04:58 Review of Systems - Other Findings Other Findings: Patient states she has back pain and dysuria. Unable to assess full ROS. Patient was altered and unable to respond reliably to questions. Prior Level of Functionality: Per daughterJoan, patient is able to ambulate independently with a walker. Exam - Vital Signs Reviewed Vital Signs: Yes Vital Signs: Vital Signs x48h Pulse Resp BP Pulse Ox 10/25/23 12:00 106 H 18 108/60 100 10/25/23 11:00 105 H 20 113/55 L 100 10/25/23 10:00 106 H 18 103/57 L 98 10/25/23 09:00 110 H 16 118/57 L 98 10/25/23 08:00 106 H 20 118/48 L 95 - Physical Exam General Appearance: positive: Anxious, Other (Elderly woman laying in bed, lethargic with eyes partially open and unfocused. Appropriate hygiene. Looks stated age.) Eyes Bilateral: positive: No lid inflammation, Conjunctivae nml ENT: positive: Dry mucous membranes Neck: positive: Nml inspection Respiratory: positive: Chest non-tender, No respiratory distress, Rhonchi (bilaterally) Cardiovascular: positive: Tachycardia (regular rhythm), Systolic murmur (blowing systolic murmur) Abdomen: positive: No organomegaly, No distention, Tenderness (epigastric tenderness), Other (Soft abdomen). negative: Guarding, Rebound, Mass Skin: positive: Warm, Dry Extremities: positive: Non-tender, No pedal edema Neurologic/Psychiatric: positive: Disoriented to place, Disoriented to time, F acial droop (L side), Other (Anxious affect. Oriented to self. Disorganized speech. Speech is quiet. Tangential/rambling at times.) Conclusion/Plan - Problem List (1) DKA, type 2 Conclusion/Plan: Possible UTI could be trigger for her DKA. SGLT-2 inhibitors can also be culprit of ketoacidosis with hyperglycemia. Ketones present in urine. Glucose upon admission was 406, which has since dropped pH was 7.052 on VBG, with pCO2 if 19.1, pO2 55.7. HCO3 5.2. CO2 on CMP was 6. Plan: - Check VBG, electrolytes, BUN, creatinine and glucose q2-4 hours until stable - continue insulin drip - dextrose drip - Discontinue empagliflozin - continue home medications as appropriate - NPO (2) Altered mental status Conclusion/Plan: Unclear if AMS is due to DKA, UTI, alcohol use or psychiatric etiology. Most likely multifactorial. Will continue to monitor and reassess tomorrow. I think it is appropriate to continue her antidepressant while she is here to avoid uncomfortable sudden withdrawal. Plan: - continue home venlafaxine (3) UTI (urinary tract infection) Conclusion/Plan: WBCs 13.8. Leukocytosis may be from demargination from DKA or infection. However she is able to communicate that she has pain with urination and back pain. Urinalysis shows high specific gravity, leukocyte esterase and WBCs in urine. She has a cefuroxime allergy noted in chart, so will use second line treatment for suspected pyelonephritis, levofloxacin 750mg IV Q24H x5 days, can change to PO when sx improve. Plan: - Start levofloxacin x5 days (4) Alcohol use Conclusion/Plan: Daughter states she uses 16 oz of vodka daily. Last drink 10/23/23 per daughter, however unable to verify this with patient. Toxicology screen positive for benzodiazepines. Plan: - CIWA protocol, ativan if score >8 - Supplemental thiamine, multivitamin (5) Electrolyte abnormality Conclusion/Plan: Potassium upon admission was 5.9, has dropped to 4.1. This will continue to drop significantly with insulin drip, will order NS w/ potassium now in anticipation of this. Plan: - NS w/ K - continue to check potassium q2 hours - ICU Electrolyte repletion protocol (6) Systolic murmur Conclusion/Plan: Blowing systolic murmur best heard at upper sternal border likely aortic stenosis. Will obtain an echo to verify this if patient is still hospitalized when US tech is available, otherwise follow up with cardiology. Plan: - Echo on friday/follow up with cardiology - Lab Results Fish Bones: 10/25/23 05:21 10/25/23 18:00 Core Measures - DVT/VTE - Prophylaxis VTE/DVT Prophylaxis med ordered at admit?: Yes
[2023-10-25 14:49] LABS: MAGNESIUM 1.7 mg/dL (1.7-2.3); PHOSPHORUS 4.1 mg/dL (2.5-5.0)
--- NOTE | 2023-10-25 15:19 | PHARMACY PROGRESS NOTE ---
- Best Possible Medication History Admit Date and Time: 10/25/23 1221 Processed by: Pharmacy Medication History completed: Yes Patient Interview: Completed Secondary Source(s): Written medication list, Pharmacy records, Insurance records As the person ultimately responsible for medication therapy, providers are able to order a medication from an existing home medication list in [facility] [employer] via the "Reconcile Routine" prior to Confirmation of that medication by desktop support consultant. Such practice is discouraged except when the physician, in their clinical judgment, deems that a medical need exists for a medication without regard to previous use.
[2023-10-25 15:55] LABS: CALCIUM 8.9 mg/dL (8.5-10.3); CREATININE 0.9 mg/dL (0.6-1.3); POTASSIUM 4.6 mmol/L (3.5-4.5)
[2023-10-25] MEDS: SODIUM CHLORIDE FLUSH 0.9% 10 ML SYRINGE IVP SCH (16:41)
[2023-10-25 16:50] LABS: BILIRUBIN,URINE NEGATIVE (NEGATIVE); GLUCOSE, URINE (UA) 500 mg/dL (NEGATIVE); KETONES,URINE (UA) >=80 mg/dL (NEGATIVE); LEUKOCYTE ESTERASE, URINE TRACE (NEGATIVE); NITRITE,URINE NEGATIVE (NEGATIVE); OCCULT BLOOD,URINE TRACE-INTA (NEGATIVE); PH,URINE 5.5 PH (5.0-7.5); PROTEIN,URINE TRACE mg/dL (NEGATIVE); UROBILINOGEN,URINE 0.2 (NORMAL) E.U./dL (NORMAL)
[2023-10-25 16:53] LABS: CLARITY,URINE HAZY (CLEAR)
[2023-10-25 16:59] LABS: BACTERIA,URINE Few /HPF (None Seen); RBC,URINE 0-5 /HPF (0-5); SQUAMOUS EPITHELIAL CELL,UR RARE Squamous (<= Few); YEAST,URINE PRESENT
[2023-10-25] MEDS: oxyCODONE 5 MG TABLET PO PRN (17:21)
[2023-10-25] MEDS: MAGNESIUM SULFATE 2 GRAM 2 GM/50 ML BAG IV ONE (18:05)
[2023-10-25 18:17] LABS: PHOSPHORUS 2.7 mg/dL (2.5-5.0)
[2023-10-25 18:30] LABS: CALCIUM 8.6 mg/dL (8.5-10.3); CREATININE 0.8 mg/dL (0.6-1.3); POTASSIUM 4.1 mmol/L (3.5-4.5)
[2023-10-25] MEDS: POTASSIUM CHLOR 10 MEQ/100 ML 10 MEQ/100 ML BAG IV ONE (18:42)
[2023-10-25] MEDS: LORazepam 2 MG/ML VIAL IVP PRN (20:07)
[2023-10-25] MEDS: NS W/20 MEQ KCL 1,000 ML IV SCH (20:08)
[2023-10-25 22:16] LABS: CALCIUM, IONIZED 1.23 mmol/L (1.15-1.33); VBG PH 7.201 (7.31-7.41)
[2023-10-25 22:32] LABS: CALCIUM 8.9 mg/dL (8.5-10.3); CREATININE 0.8 mg/dL (0.6-1.3)
[2023-10-26] MEDS: PANTOPRAZOLE 40 MG TABLET PO SCH (06:02)
[2023-10-26 06:20] LABS: BASOPHILS % (AUTO) 0.5 %; EOSINOPHILS # (AUTO) 0.1 10^3/uL (0.0-0.7); EOSINOPHILS % (AUTO) 0.9 %; HCT - HEMATOCRIT 27.6 % (37.0-47.0); HGB - HEMOGLOBIN 8.1 g/dL (12.0-16.0); LYMPHOCYTES # (AUTO) 1.1 10^3/uL (1.5-3.5); LYMPHOCYTES % (AUTO) 17.4 %; MEAN CORPUSCULAR HEMOGLOBIN 26.9 pg (27.0-31.0); MEAN CORPUSCULAR HGB CONC 29.3 g/dL (32.0-36.0); MEAN CORPUSCULAR VOLUME 91.7 fL (81.0-99.0); MEAN PLATELET VOLUME 10.5 fL (7.9-10.8); MONOCYTES # (AUTO) 0.5 10^3/uL (0.0-1.0); MONOCYTES % (AUTO) 7.2 %; NEUTROPHILS # (AUTO) 4.7 10^3/uL (1.5-6.6); NEUTROPHILS % (AUTO) 73.5 %; PLT - PLATELET COUNT 191 10^3/uL (130-450); RED BLOOD COUNT 3.01 10^6/uL (4.20-5.40); RED CELL DISTRIBUTION WIDTH 15.8 % (12.0-15.0); WHITE BLOOD COUNT 6.4 x10^3/uL (4.8-10.8)
[2023-10-26 06:28] LABS: CALCIUM, IONIZED 1.15 mmol/L (1.15-1.33); VBG BASE EXCESS -11.7 mmol/L (-2 - +2); VBG HCO3 14.2 mmol/L (23-28); VBG OXYGEN SATURATION 86.6 % (60-80); VBG PCO2 32.3 mmHg (41-51); VBG PH 7.256 (7.31-7.41); VBG PH 7.261 (7.31-7.41); VBG PO2 48.4 mmHg (25-47); VBG TOTAL CO2 15.2 mmol/L (24-29)
[2023-10-26 06:37] LABS: MAGNESIUM 1.7 mg/dL (1.7-2.3); PHOSPHORUS 1.7 mg/dL (2.5-5.0)
[2023-10-26 06:50] LABS: CALCIUM 7.5 mg/dL (8.5-10.3); CREATININE 0.7 mg/dL (0.6-1.3); POTASSIUM 3.1 mmol/L (3.5-4.5)
[2023-10-26] MEDS: MAGNESIUM SULFATE 2 GRAM 2 GM/50 ML BAG IV ONE (06:59)
[2023-10-26 07:58] LABS: CALCIUM 8.6 mg/dL (8.5-10.3); CREATININE 0.7 mg/dL (0.6-1.3); PHOSPHORUS 2.1 mg/dL (2.5-5.0); POTASSIUM 3.5 mmol/L (3.5-4.5)
[2023-10-26] MEDS: levoFLOXacin 750 MG/150 ML 750 MG/150 ML BAG IV SCH (07:58)
[2023-10-26] MEDS: PRENATAL VITAMIN TABLET PO SCH (08:03)
[2023-10-26] MEDS: ENOXAPARIN 40 MG/0.4 ML SYRINGE SUBQ SCH (08:03)
[2023-10-26] MEDS: THIAMINE 100 MG TABLET PO SCH (08:03)
[2023-10-26] MEDS: POTASSIUM PHOSPHATE 15 MMOL in SODIUM CHLORIDE 0.9% 250 ML IV ONE (10:20)
[2023-10-26 10:49] LABS: HCT - HEMATOCRIT 35.5 % (37.0-47.0); HGB - HEMOGLOBIN 11.1 g/dL (12.0-16.0); MEAN CORPUSCULAR HEMOGLOBIN 27.2 pg (27.0-31.0); MEAN CORPUSCULAR HGB CONC 31.3 g/dL (32.0-36.0); MEAN PLATELET VOLUME 10.3 fL (7.9-10.8); RED BLOOD COUNT 4.08 10^6/uL (4.20-5.40); RED CELL DISTRIBUTION WIDTH 15.3 % (12.0-15.0); WHITE BLOOD COUNT 8.1 x10^3/uL (4.8-10.8)
[2023-10-26 10:55] LABS: CALCIUM, IONIZED 1.21 mmol/L (1.15-1.33); VBG PH 7.241 (7.31-7.41)
[2023-10-26 12:30] LABS: CALCIUM 8.4 mg/dL (8.5-10.3); CREATININE 0.6 mg/dL (0.6-1.3); POTASSIUM 3.7 mmol/L (3.5-4.5)
[2023-10-26] MEDS: INSULIN GLARGINE-YFGN 300 UNIT/3 ML PEN SUBQ SCH (13:44)
[2023-10-26] MEDS: INSULIN LISPRO 300 UNIT/3 ML PEN SUBQ SCH ×2 (13:49→18:10)
[2023-10-26 16:36] LABS: MAGNESIUM 1.7 mg/dL (1.7-2.3); POTASSIUM 3.7 mmol/L (3.5-4.5)
[2023-10-26] MEDS: POTASSIUM CHLOR 10 MEQ/100 ML 10 MEQ/100 ML BAG IV SCH (16:50)
--- NOTE | 2023-10-26 16:53 | PROVIDER PROGRESS NOTE ---
Subjective - Prog Note Date Prog Note Date: 10/26/23 Prog Note Time: 16:51 - Subjective Subjective: Patient somnolent and sleeping intermittently throughout the day, snoring loudly. When she was awake, she was unable to communicate pain level or ROS to this mortgage or loan underwriter. She does note abdominal pain and mumbles softy about an abdominal surgery, but is unable to elaborate further on this. She has disorganized speech and is unable to follow directions or make eye contact. Per pharmacy she is not taking insulin NPH, she is on lantus and humalog, however this was last filled at the pharmacy in July 2023. She relies on her grandson for rides to the pharmacy. Current Medications - Current Medications Current Medications: Active Medications Acetaminophen (Acetaminophen 325 Mg Tablet) 650 mg PO Q4HR PRN PRN Reason: Pain 1 to 4, or Fever Enoxaparin Sodium (Enoxaparin 40 Mg/0.4 Ml Syringe) 40 mg SUBQ DAILY [facility] Last Admin: 10/26/23 08:03 Dose: 40 mg Insulin Human Regular (Myxredlin 100 Unit/100 Ml Bag) 100 unit in 100 mls @ 6.5 mls/hr IV .[id number] [facility]; Protocol Last Admin: 10/26/23 14:53 Dose: Not Given Levofloxacin (Levaquin 750 Mg/150 Ml) 750 mg in 150 mls @ 100 mls/hr IV Q24H [facility] Last Infusion: 10/26/23 09:40 Dose: Infused Potassium Chloride (Potassium Chloride) 10 meq in 100 mls @ 100 mls/hr IV Q1H [facility]; Protocol Stop: 10/26/23 18:59 Last Admin: 10/26/23 16:50 Dose: 100 mls/hr Insulin Glargine-yfgn (Insulin Glargine-Yfgn 300 Unit/3 Ml Pen) 25 unit SUBQ DAILY [facility] Last Admin: 10/26/23 13:44 Dose: 25 unit Insulin Human Lispro (Insulin Lispro 300 Unit/3 Ml Pen) 5 unit SUBQ TIDWM [facility]; Protocol Last Admin: 10/26/23 13:49 Dose: 5 unit Insulin Human Lispro (Insulin Lispro 300 Unit/3 Ml Pen) 1 - 5 unit SUBQ 0800,1200,1700,2100 [facility]; Protocol Lorazepam (Lorazepam 2 Mg/Ml Vial) 1 mg IVP Q30M PRN; Protocol PRN Reason: CIWA >8 Last Admin: 10/26/23 16:00 Dose: 1 mg Ondansetron HCl (Ondansetron Odt 4 Mg Tablet) 4 mg TL Q6HR PRN PRN Reason: Nausea / Vomiting Ondansetron HCl (Ondansetron 4 Mg/2 Ml Vial) 4 mg IVP Q6HR PRN PRN Reason: Nausea / Vomiting Oxycodone HCl (Oxycodone 5 Mg Tablet) 5 mg PO Q4HR PRN PRN Reason: Pain 5 to 7 Last Admin: 10/26/23 14:49 Dose: 5 mg Pantoprazole Sodium (Pantoprazole 40 Mg Tablet) 40 mg PO QDAC [facility] Last Admin: 10/26/23 06:02 Dose: Not Given Multivit/Folic Acid/Iron ( Vitamin Tablet) 1 tab PO DAILY [facility] Last Admin: 10/26/23 08:03 Dose: 1 tab Sodium Chloride (Sodium Chloride Flush 0.9% 10 Ml Syringe) 10 ml IVP 0100,0900,1700 [facility] Last Admin: 10/26/23 08:04 Dose: 10 ml Sodium Chloride (Sodium Chloride Flush 0.9% 10 Ml Syringe) 10 ml IVP PRN PRN PRN Reason: NEEDED PER PROVIDER ORDERS Thiamine HCl (Thiamine 100 Mg Tablet) 100 mg PO DAILY [facility] Last Admin: 10/26/23 08:03 Dose: 100 mg Irbesartan 150 mg PO DAILY 10/16/23 Levothyroxine [Synthroid] 25 mcg PO QDAC 10/16/23 Atorvastatin Calcium 40 mg PO QPM 10/25/23 Empagliflozin [Jardiance] 10 mg PO DAILY 10/25/23 Insulin NPH Hum/Reg Insulin Hm [Humulin 70/30 Kwikpen] 15 unit SUBQ QPM 10/25/23 Insulin NPH Hum/Reg Insulin Hm [Humulin 70/30 Kwikpen] 30 unit SUBQ DAILY 10/25/23 Venlafaxine ER [Effexor ER] 75 mg PO BID 10/25/23 Objective - Vital Signs/Intake & Output Vital Signs: Vital Signs x48h Temp Pulse Resp BP Pulse Ox 10/26/23 16:00 36.6 C 79 17 117/51 L 98 10/26/23 15:00 82 17 127/57 L 99 10/26/23 14:00 78 17 116/44 L 98 10/26/23 13:00 74 19 118/46 L 96 10/26/23 12:00 37.7 C 78 19 105/47 L 97 10/26/23 11:00 73 13 129/47 L 97 10/26/23 10:00 77 16 122/47 L 98 10/26/23 09:00 66 21 131/49 H 98 Intake & Output: Intake & Output 10/23/23 10/24/23 10/25/23 10/26/23 23:59 23:59 23:59 23:59 Intake Total 3396.660 2973.673 Output Total 700 600 Balance 2696.660 2373.673 - Objective General Appearance: positive: No acute distress, Lethargic (Elderly woman lying in hospital bed, eyes closed when communicating, mumbling.) Eyes Bilateral: positive: No lid inflammation, Conjunctivae nml Neck: positive: Nml inspection Respiratory: positive: Chest non-tender, No respiratory distress, Rhonchi (Bilaterally.), Other (Decreased breath sounds) Cardiovascular: positive: Regular rate & rhythm, Systolic murmur (crescendo- decrescendo murmur) Abdomen: positive: Tenderness (diffuse tenderness) Skin: positive: Warm, Dry Extremities: positive: Non-tender, No pedal edema Neurologic/Psychiatric: positive: Other (Speech is quiet, disorganized speech. Unable to assess orientation towards self, place or time.) - Lab Results Fish Bones: 10/26/23 10:40 10/26/23 16:20 Other Labs: Lab Results x24hrs 10/26/23 10/26/23 10/26/23 Range/Units 16:20 15:52 13:53 WBC (4.8-10.8) x10^3/uL RBC (4.20-5.40) 10^6/uL Hgb (12.0-16.0) g/dL Hct (37.0-47.0) % MCV (81.0-99.0) fL MCH (27.0-31.0) pg MCHC (32.0-36.0) g/dL RDW (12.0-15.0) % Plt Count (130-450) 10^3/uL MPV (7.9-10.8) fL Neut # (Auto) (1.5-6.6) 10^3/uL Lymph # (Auto) (1.5-3.5) 10^3/uL [place] # (Auto) (0.0-1.0) 10^3/uL Eos # (Auto) (0.0-0.7) 10^3/uL Baso # (Auto) (0.0-0.1) 10^3/uL Absolute Nucleated RBC x10^3/uL Nucleated RBC % /100WBC VBG pH (7.31-7.41) VBG pCO2 (41-51) mmHg VBG pO2 (25-47) mmHg VBG HCO3 (23-28) mmol/L VBG Total CO2 (24-29) mmol/L VBG O2 Saturation (60-80) % VBG Base Excess (-2 - +2) mmol/L Ionized Calcium (1.15-1.33) mmol/L Sodium (135-145) mmol/L Potassium 3.7 (3.5-4.5) mmol/L Chloride (101-111) mmol/L Carbon Dioxide (21-32) mmol/L Anion Gap (6-13) BUN (6-20) mg/dL Creatinine (0.6-1.3) mg/dL Estimated GFR (MDRD) (>89) Glucose (74-104) mg/dL POC Whole Bld Glucose 178 H 128 H (70 - 100) mg/dL Calcium (8.5-10.3) mg/dL Phosphorus 3.0 (2.5-5.0) mg/dL Magnesium 1.7 (1.7-2.3) mg/dL Urine Color Urine Clarity (CLEAR) Urine pH (5.0-7.5) PH Ur Specific [place] (1.002-1.030) Urine Protein (NEGATIVE) mg/dL Urine Glucose (UA) (NEGATIVE) mg/dL Urine Ketones (NEGATIVE) mg/dL Urine Occult Blood (NEGATIVE) Urine Nitrite (NEGATIVE) Urine Bilirubin (NEGATIVE) Urine Urobilinogen (NORMAL) E.U./dL Ur Leukocyte Esterase (NEGATIVE) Urine RBC (0-5) /HPF Urine WBC (0-5) /HPF Ur Squamous Epith Cells (<= Few) Urine Bacteria (None Seen) /HPF Urine Yeast Ur Microscopic Review Urine Culture Comments Serum Ketones (NEGATIVE) 10/26/23 10/26/23 10/26/23 Range/Units 12:09 12:02 10:40 WBC (4.8-10.8) x10^3/uL RBC (4.20-5.40) 10^6/uL Hgb (12.0-16.0) g/dL Hct (37.0-47.0) % MCV (81.0-99.0) fL MCH (27.0-31.0) pg MCHC (32.0-36.0) g/dL RDW (12.0-15.0) % Plt Count (130-450) 10^3/uL MPV (7.9-10.8) fL Neut # (Auto) (1.5-6.6) 10^3/uL Lymph # (Auto) (1.5-3.5) 10^3/uL [place] # (Auto) (0.0-1.0) 10^3/uL Eos # (Auto) (0.0-0.7) 10^3/uL Baso # (Auto) (0.0-0.1) 10^3/uL Absolute Nucleated RBC x10^3/uL Nucleated RBC % /100WBC VBG pH 7.241 L (7.31-7.41) VBG pCO2 (41-51) mmHg VBG pO2 (25-47) mmHg VBG HCO3 (23-28) mmol/L VBG Total CO2 (24-29) mmol/L VBG O2 Saturation (60-80) % VBG Base Excess (-2 - +2) mmol/L Ionized Calcium 1.21 (1.15-1.33) mmol/L Sodium 142 (135-145) mmol/L Potassium 3.7 (3.5-4.5) mmol/L Chloride 116 H (101-111) mmol/L Carbon Dioxide 19 L (21-32) mmol/L Anion Gap 7.0 (6-13) BUN 15 (6-20) mg/dL Creatinine 0.6 (0.6-1.3) mg/dL Estimated GFR (MDRD) 97 (>89) Glucose 136 H (74-104) mg/dL POC Whole Bld Glucose 149 H (70 - 100) mg/dL Calcium 8.4 L (8.5-10.3) mg/dL Phosphorus (2.5-5.0) mg/dL Magnesium (1.7-2.3) mg/dL Urine Color Urine Clarity (CLEAR) Urine pH (5.0-7.5) PH Ur Specific [place] (1.002-1.030) Urine Protein (NEGATIVE) mg/dL Urine Glucose (UA) (NEGATIVE) mg/dL Urine Ketones (NEGATIVE) mg/dL Urine Occult Blood (NEGATIVE) Urine Nitrite (NEGATIVE) Urine Bilirubin (NEGATIVE) Urine Urobilinogen (NORMAL) E.U./dL Ur Leukocyte Esterase (NEGATIVE) Urine RBC (0-5) /HPF Urine WBC (0-5) /HPF Ur Squamous Epith Cells (<= Few) Urine Bacteria (None Seen) /HPF Urine Yeast Ur Microscopic Review Urine Culture Comments Serum Ketones (NEGATIVE) 10/26/23 10/26/23 10/26/23 Range/Units 10:40 09:59 09:05 WBC 8.1 (4.8-10.8) x10^3/uL RBC 4.08 L (4.20-5.40) 10^6/uL Hgb 11.1 L (12.0-16.0) g/dL Hct 35.5 L (37.0-47.0) % MCV 87.0 (81.0-99.0) fL MCH 27.2 (27.0-31.0) pg MCHC 31.3 L (32.0-36.0) g/dL RDW 15.3 H (12.0-15.0) % Plt Count 249 (130-450) 10^3/uL MPV 10.3 (7.9-10.8) fL Neut # (Auto) (1.5-6.6) 10^3/uL Lymph # (Auto) (1.5-3.5) 10^3/uL [place] # (Auto) (0.0-1.0) 10^3/uL Eos # (Auto) (0.0-0.7) 10^3/uL Baso # (Auto) (0.0-0.1) 10^3/uL Absolute Nucleated RBC x10^3/uL Nucleated RBC % /100WBC VBG pH (7.31-7.41) VBG pCO2 (41-51) mmHg VBG pO2 (25-47) mmHg VBG HCO3 (23-28) mmol/L VBG Total CO2 (24-29) mmol/L VBG O2 Saturation (60-80) % VBG Base Excess (-2 - +2) mmol/L Ionized Calcium (1.15-1.33) mmol/L Sodium (135-145) mmol/L Potassium (3.5-4.5) mmol/L Chloride (101-111) mmol/L Carbon Dioxide (21-32) mmol/L Anion Gap (6-13) BUN (6-20) mg/dL Creatinine (0.6-1.3) mg/dL Estimated GFR (MDRD) (>89) Glucose (74-104) mg/dL POC Whole Bld Glucose 154 H 178 H (70 - 100) mg/dL Calcium (8.5-10.3) mg/dL Phosphorus (2.5-5.0) mg/dL Magnesium (1.7-2.3) mg/dL Urine Color Urine Clarity (CLEAR) Urine pH (5.0-7.5) PH Ur Specific [place] (1.002-1.030) Urine Protein (NEGATIVE) mg/dL Urine Glucose (UA) (NEGATIVE) mg/dL Urine Ketones (NEGATIVE) mg/dL Urine Occult Blood (NEGATIVE) Urine Nitrite (NEGATIVE) Urine Bilirubin (NEGATIVE) Urine Urobilinogen (NORMAL) E.U./dL Ur Leukocyte Esterase (NEGATIVE) Urine RBC (0-5) /HPF Urine WBC (0-5) /HPF Ur Squamous Epith Cells (<= Few) Urine Bacteria (None Seen) /HPF Urine Yeast Ur Microscopic Review Urine Culture Comments Serum Ketones (NEGATIVE) 10/26/23 10/26/23 10/26/23 Range/Units 08:00 07:30 07:30 WBC (4.8-10.8) x10^3/uL RBC (4.20-5.40) 10^6/uL Hgb (12.0-16.0) g/dL Hct (37.0-47.0) % MCV (81.0-99.0) fL MCH (27.0-31.0) pg MCHC (32.0-36.0) g/dL RDW (12.0-15.0) % Plt Count (130-450) 10^3/uL MPV (7.9-10.8) fL Neut # (Auto) (1.5-6.6) 10^3/uL Lymph # (Auto) (1.5-3.5) 10^3/uL [place] # (Auto) (0.0-1.0) 10^3/uL Eos # (Auto) (0.0-0.7) 10^3/uL Baso # (Auto) (0.0-0.1) 10^3/uL Absolute Nucleated RBC x10^3/uL Nucleated RBC % /100WBC VBG pH (7.31-7.41) VBG pCO2 (41-51) mmHg VBG pO2 (25-47) mmHg VBG HCO3 (23-28) mmol/L VBG Total CO2 (24-29) mmol/L VBG O2 Saturation (60-80) % VBG Base Excess (-2 - +2) mmol/L Ionized Calcium (1.15-1.33) mmol/L Sodium 140 (135-145) mmol/L Potassium 3.5 (3.5-4.5) mmol/L Chloride 119 H (101-111) mmol/L Carbon Dioxide 16 L (21-32) mmol/L Anion Gap 5.0 L (6-13) BUN 17 (6-20) mg/dL Creatinine 0.7 (0.6-1.3) mg/dL Estimated GFR (MDRD) 81 L (>89) Glucose 184 H (74-104) mg/dL POC Whole Bld Glucose 173 H (70 - 100) mg/dL Calcium 8.6 (8.5-10.3) mg/dL Phosphorus 2.1 L (2.5-5.0) mg/dL Magnesium 2.0 (1.7-2.3) mg/dL Urine Color Urine Clarity (CLEAR) Urine pH (5.0-7.5) PH Ur Specific [place] (1.002-1.030) Urine Protein (NEGATIVE) mg/dL Urine Glucose (UA) (NEGATIVE) mg/dL Urine Ketones (NEGATIVE) mg/dL Urine Occult Blood (NEGATIVE) Urine Nitrite (NEGATIVE) Urine Bilirubin (NEGATIVE) Urine Urobilinogen (NORMAL) E.U./dL Ur Leukocyte Esterase (NEGATIVE) Urine RBC (0-5) /HPF Urine WBC (0-5) /HPF Ur Squamous Epith Cells (<= Few) Urine Bacteria (None Seen) /HPF Urine Yeast Ur Microscopic Review Urine Culture Comments Serum Ketones SMALL H (NEGATIVE) 10/26/23 10/26/23 10/26/23 Range/Units 06:52 06:12 06:12 WBC (4.8-10.8) x10^3/uL RBC (4.20-5.40) 10^6/uL Hgb (12.0-16.0) g/dL Hct (37.0-47.0) % MCV (81.0-99.0) fL MCH (27.0-31.0) pg MCHC (32.0-36.0) g/dL RDW (12.0-15.0) % Plt Count (130-450) 10^3/uL MPV (7.9-10.8) fL Neut # (Auto) (1.5-6.6) 10^3/uL Lymph # (Auto) (1.5-3.5) 10^3/uL [place] # (Auto) (0.0-1.0) 10^3/uL Eos # (Auto) (0.0-0.7) 10^3/uL Baso # (Auto) (0.0-0.1) 10^3/uL Absolute Nucleated RBC x10^3/uL Nucleated RBC % /100WBC VBG pH 7.256 L 7.261 L (7.31-7.41) VBG pCO2 32.3 L (41-51) mmHg VBG pO2 48.4 H (25-47) mmHg VBG HCO3 14.2 L (23-28) mmol/L VBG Total CO2 15.2 L (24-29) mmol/L VBG O2 Saturation 86.6 H (60-80) % VBG Base Excess -11.7 L (-2 - +2) mmol/L Ionized Calcium 1.15 (1.15-1.33) mmol/L Sodium (135-145) mmol/L Potassium (3.5-4.5) mmol/L Chloride (101-111) mmol/L Carbon Dioxide (21-32) mmol/L Anion Gap (6-13) BUN (6-20) mg/dL Creatinine (0.6-1.3) mg/dL Estimated GFR (MDRD) (>89) Glucose (74-104) mg/dL POC Whole Bld Glucose 182 H (70 - 100) mg/dL Calcium (8.5-10.3) mg/dL Phosphorus (2.5-5.0) mg/dL Magnesium (1.7-2.3) mg/dL Urine Color Urine Clarity (CLEAR) Urine pH (5.0-7.5) PH Ur Specific [place] (1.002-1.030) Urine Protein (NEGATIVE) mg/dL Urine Glucose (UA) (NEGATIVE) mg/dL Urine Ketones (NEGATIVE) mg/dL Urine Occult Blood (NEGATIVE) Urine Nitrite (NEGATIVE) Urine Bilirubin (NEGATIVE) Urine Urobilinogen (NORMAL) E.U./dL Ur Leukocyte Esterase (NEGATIVE) Urine RBC (0-5) /HPF Urine WBC (0-5) /HPF Ur Squamous Epith Cells (<= Few) Urine Bacteria (None Seen) /HPF Urine Yeast Ur Microscopic Review Urine Culture Comments Serum Ketones (NEGATIVE) 10/26/23 10/26/23 10/26/23 Range/Units 06:12 06:12 05:52 WBC 6.4 (4.8-10.8) x10^3/uL RBC 3.01 L (4.20-5.40) 10^6/uL Hgb 8.1 L (12.0-16.0) g/dL Hct 27.6 L (37.0-47.0) % MCV 91.7 (81.0-99.0) fL MCH 26.9 L (27.0-31.0) pg MCHC 29.3 L (32.0-36.0) g/dL RDW 15.8 H (12.0-15.0) % Plt Count 191 (130-450) 10^3/uL MPV 10.5 (7.9-10.8) fL Neut # (Auto) 4.7 (1.5-6.6) 10^3/uL Lymph # (Auto) 1.1 L (1.5-3.5) 10^3/uL [place] # (Auto) 0.5 (0.0-1.0) 10^3/uL Eos # (Auto) 0.1 (0.0-0.7) 10^3/uL Baso # (Auto) 0.0 (0.0-0.1) 10^3/uL Absolute Nucleated RBC 0.00 x10^3/uL Nucleated RBC % 0.0 /100WBC VBG pH (7.31-7.41) VBG pCO2 (41-51) mmHg VBG pO2 (25-47) mmHg VBG HCO3 (23-28) mmol/L VBG Total CO2 (24-29) mmol/L VBG O2 Saturation (60-80) % VBG Base Excess (-2 - +2) mmol/L Ionized Calcium (1.15-1.33) mmol/L Sodium 143 (135-145) mmol/L Potassium 3.1 L (3.5-4.5) mmol/L Chloride 119 H (101-111) mmol/L Carbon Dioxide 16 L (21-32) mmol/L Anion Gap 8.0 (6-13) BUN 16 (6-20) mg/dL Creatinine 0.7 (0.6-1.3) mg/dL Estimated GFR (MDRD) 81 L (>89) Glucose 520 H* (74-104) mg/dL POC Whole Bld Glucose 165 H (70 - 100) mg/dL Calcium 7.5 L (8.5-10.3) mg/dL Phosphorus 1.7 L (2.5-5.0) mg/dL Magnesium 1.7 (1.7-2.3) mg/dL Urine Color Urine Clarity (CLEAR) Urine pH (5.0-7.5) PH Ur Specific [place] (1.002-1.030) Urine Protein (NEGATIVE) mg/dL Urine Glucose (UA) (NEGATIVE) mg/dL Urine Ketones (NEGATIVE) mg/dL Urine Occult Blood (NEGATIVE) Urine Nitrite (NEGATIVE) Urine Bilirubin (NEGATIVE) Urine Urobilinogen (NORMAL) E.U./dL Ur Leukocyte Esterase (NEGATIVE) Urine RBC (0-5) /HPF Urine WBC (0-5) /HPF Ur Squamous Epith Cells (<= Few) Urine Bacteria (None Seen) /HPF Urine Yeast Ur Microscopic Review Urine Culture Comments Serum Ketones (NEGATIVE) 10/26/23 10/26/23 10/26/23 Range/Units 03:56 02:01 00:18 WBC (4.8-10.8) x10^3/uL RBC (4.20-5.40) 10^6/uL Hgb (12.0-16.0) g/dL Hct (37.0-47.0) % MCV (81.0-99.0) fL MCH (27.0-31.0) pg MCHC (32.0-36.0) g/dL RDW (12.0-15.0) % Plt Count (130-450) 10^3/uL MPV (7.9-10.8) fL Neut # (Auto) (1.5-6.6) 10^3/uL Lymph # (Auto) (1.5-3.5) 10^3/uL [place] # (Auto) (0.0-1.0) 10^3/uL Eos # (Auto) (0.0-0.7) 10^3/uL Baso # (Auto) (0.0-0.1) 10^3/uL Absolute Nucleated RBC x10^3/uL Nucleated RBC % /100WBC VBG pH (7.31-7.41) VBG pCO2 (41-51) mmHg VBG pO2 (25-47) mmHg VBG HCO3 (23-28) mmol/L VBG Total CO2 (24-29) mmol/L VBG O2 Saturation (60-80) % VBG Base Excess (-2 - +2) mmol/L Ionized Calcium (1.15-1.33) mmol/L Sodium (135-145) mmol/L Potassium (3.5-4.5) mmol/L Chloride (101-111) mmol/L Carbon Dioxide (21-32) mmol/L Anion Gap (6-13) BUN (6-20) mg/dL Creatinine (0.6-1.3) mg/dL Estimated GFR (MDRD) (>89) Glucose (74-104) mg/dL POC Whole Bld Glucose 134 H 170 H 158 H (70 - 100) mg/dL Calcium (8.5-10.3) mg/dL Phosphorus (2.5-5.0) mg/dL Magnesium (1.7-2.3) mg/dL Urine Color Urine Clarity (CLEAR) Urine pH (5.0-7.5) PH Ur Specific [place] (1.002-1.030) Urine Protein (NEGATIVE) mg/dL Urine Glucose (UA) (NEGATIVE) mg/dL Urine Ketones (NEGATIVE) mg/dL Urine Occult Blood (NEGATIVE) Urine Nitrite (NEGATIVE) Urine Bilirubin (NEGATIVE) Urine Urobilinogen (NORMAL) E.U./dL Ur Leukocyte Esterase (NEGATIVE) Urine RBC (0-5) /HPF Urine WBC (0-5) /HPF Ur Squamous Epith Cells (<= Few) Urine Bacteria (None Seen) /HPF Urine Yeast Ur Microscopic Review Urine Culture Comments Serum Ketones (NEGATIVE) 10/25/23 10/25/23 10/25/23 Range/Units 22:08 22:08 22:08 WBC (4.8-10.8) x10^3/uL RBC (4.20-5.40) 10^6/uL Hgb (12.0-16.0) g/dL Hct (37.0-47.0) % MCV (81.0-99.0) fL MCH (27.0-31.0) pg MCHC (32.0-36.0) g/dL RDW (12.0-15.0) % Plt Count (130-450) 10^3/uL MPV (7.9-10.8) fL Neut # (Auto) (1.5-6.6) 10^3/uL Lymph # (Auto) (1.5-3.5) 10^3/uL [place] # (Auto) (0.0-1.0) 10^3/uL Eos # (Auto) (0.0-0.7) 10^3/uL Baso # (Auto) (0.0-0.1) 10^3/uL Absolute Nucleated RBC x10^3/uL Nucleated RBC % /100WBC VBG pH 7.201 L (7.31-7.41) VBG pCO2 (41-51) mmHg VBG pO2 (25-47) mmHg VBG HCO3 (23-28) mmol/L VBG Total CO2 (24-29) mmol/L VBG O2 Saturation (60-80) % VBG Base Excess (-2 - +2) mmol/L Ionized Calcium 1.23 (1.15-1.33) mmol/L Sodium 139 (135-145) mmol/L Potassium 4.0 (3.5-4.5) mmol/L Chloride 115 H (101-111) mmol/L Carbon Dioxide 14 L (21-32) mmol/L Anion Gap 10.0 (6-13) BUN 20 (6-20) mg/dL Creatinine 0.8 (0.6-1.3) mg/dL Estimated GFR (MDRD) 70 L (>89) Glucose 143 H (74-104) mg/dL POC Whole Bld Glucose (70 - 100) mg/dL Calcium 8.9 (8.5-10.3) mg/dL Phosphorus (2.5-5.0) mg/dL Magnesium 2.4 H (1.7-2.3) mg/dL Urine Color Urine Clarity (CLEAR) Urine pH (5.0-7.5) PH Ur Specific [place] (1.002-1.030) Urine Protein (NEGATIVE) mg/dL Urine Glucose (UA) (NEGATIVE) mg/dL Urine Ketones (NEGATIVE) mg/dL Urine Occult Blood (NEGATIVE) Urine Nitrite (NEGATIVE) Urine Bilirubin (NEGATIVE) Urine Urobilinogen (NORMAL) E.U./dL Ur Leukocyte Esterase (NEGATIVE) Urine RBC (0-5) /HPF Urine WBC (0-5) /HPF Ur Squamous Epith Cells (<= Few) Urine Bacteria (None Seen) /HPF Urine Yeast Ur Microscopic Review Urine Culture Comments Serum Ketones (NEGATIVE) 10/25/23 10/25/23 10/25/23 Range/Units 22:00 20:08 18:00 WBC (4.8-10.8) x10^3/uL RBC (4.20-5.40) 10^6/uL Hgb (12.0-16.0) g/dL Hct (37.0-47.0) % MCV (81.0-99.0) fL MCH (27.0-31.0) pg MCHC (32.0-36.0) g/dL RDW (12.0-15.0) % Plt Count (130-450) 10^3/uL MPV (7.9-10.8) fL Neut # (Auto) (1.5-6.6) 10^3/uL Lymph # (Auto) (1.5-3.5) 10^3/uL [place] # (Auto) (0.0-1.0) 10^3/uL Eos # (Auto) (0.0-0.7) 10^3/uL Baso # (Auto) (0.0-0.1) 10^3/uL Absolute Nucleated RBC x10^3/uL Nucleated RBC % /100WBC VBG pH (7.31-7.41) VBG pCO2 (41-51) mmHg VBG pO2 (25-47) mmHg VBG HCO3 (23-28) mmol/L VBG Total CO2 (24-29) mmol/L VBG O2 Saturation (60-80) % VBG Base Excess (-2 - +2) mmol/L Ionized Calcium (1.15-1.33) mmol/L Sodium 141 (135-145) mmol/L Potassium 4.1 (3.5-4.5) mmol/L Chloride 114 H (101-111) mmol/L Carbon Dioxide 12 L* (21-32) mmol/L Anion Gap 15.0 H (6-13) BUN 22 H (6-20) mg/dL Creatinine 0.8 (0.6-1.3) mg/dL Estimated GFR (MDRD) 70 L (>89) Glucose 149 H (74-104) mg/dL POC Whole Bld Glucose 152 H 137 H (70 - 100) mg/dL Calcium 8.6 (8.5-10.3) mg/dL Phosphorus 2.7 (2.5-5.0) mg/dL Magnesium (1.7-2.3) mg/dL Urine Color Urine Clarity (CLEAR) Urine pH (5.0-7.5) PH Ur Specific [place] (1.002-1.030) Urine Protein (NEGATIVE) mg/dL Urine Glucose (UA) (NEGATIVE) mg/dL Urine Ketones (NEGATIVE) mg/dL Urine Occult Blood (NEGATIVE) Urine Nitrite (NEGATIVE) Urine Bilirubin (NEGATIVE) Urine Urobilinogen (NORMAL) E.U./dL Ur Leukocyte Esterase (NEGATIVE) Urine RBC (0-5) /HPF Urine WBC (0-5) /HPF Ur Squamous Epith Cells (<= Few) Urine Bacteria (None Seen) /HPF Urine Yeast Ur Microscopic Review Urine Culture Comments Serum Ketones (NEGATIVE) 10/25/23 10/25/23 Range/Units 17:59 16:40 WBC (4.8-10.8) x10^3/uL RBC (4.20-5.40) 10^6/uL Hgb (12.0-16.0) g/dL Hct (37.0-47.0) % MCV (81.0-99.0) fL MCH (27.0-31.0) pg MCHC (32.0-36.0) g/dL RDW (12.0-15.0) % Plt Count (130-450) 10^3/uL MPV (7.9-10.8) fL Neut # (Auto) (1.5-6.6) 10^3/uL Lymph # (Auto) (1.5-3.5) 10^3/uL [place] # (Auto) (0.0-1.0) 10^3/uL Eos # (Auto) (0.0-0.7) 10^3/uL Baso # (Auto) (0.0-0.1) 10^3/uL Absolute Nucleated RBC x10^3/uL Nucleated RBC % /100WBC VBG pH (7.31-7.41) VBG pCO2 (41-51) mmHg VBG pO2 (25-47) mmHg VBG HCO3 (23-28) mmol/L VBG Total CO2 (24-29) mmol/L VBG O2 Saturation (60-80) % VBG Base Excess (-2 - +2) mmol/L Ionized Calcium (1.15-1.33) mmol/L Sodium (135-145) mmol/L Potassium (3.5-4.5) mmol/L Chloride (101-111) mmol/L Carbon Dioxide (21-32) mmol/L Anion Gap (6-13) BUN (6-20) mg/dL Creatinine (0.6-1.3) mg/dL Estimated GFR (MDRD) (>89) Glucose (74-104) mg/dL POC Whole Bld Glucose 141 H (70 - 100) mg/dL Calcium (8.5-10.3) mg/dL Phosphorus (2.5-5.0) mg/dL Magnesium (1.7-2.3) mg/dL Urine Color LIGHT YELLOW Urine Clarity HAZY (CLEAR) Urine pH 5.5 (5.0-7.5) PH Ur Specific [place] >=1.030 H (1.002-1.030) Urine Protein TRACE (NEGATIVE) mg/dL Urine Glucose (UA) 500 H (NEGATIVE) mg/dL Urine Ketones >=80 H (NEGATIVE) mg/dL Urine Occult Blood TRACE-INTA (NEGATIVE) Urine Nitrite NEGATIVE (NEGATIVE) Urine Bilirubin NEGATIVE (NEGATIVE) Urine Urobilinogen 0.2 (NORMAL) (NORMAL) E.U./dL Ur Leukocyte Esterase TRACE H (NEGATIVE) Urine RBC 0-5 (0-5) /HPF Urine WBC 11-25 H (0-5) /HPF Ur Squamous Epith Cells RARE Squamous (<= Few) Urine Bacteria Few (None Seen) /HPF Urine Yeast PRESENT Ur Microscopic Review INDICATED Urine Culture Comments INDICATED Serum Ketones (NEGATIVE) ABX Reporting Has patient been on IV antibiotics over the past 48 hours?: No Assessment/Plan - Problem List (1) DKA, type 2 Impression: Most likely etiology is insulin noncompliance as it seems she is unable to black pickler medications consistently. Per pharmacy she is on lantus and humalog, however this was last filled at the pharmacy in July 2023. Possible UTI or alcohol abuse, SGLT-2 inhibitors could be triggering DKA. Today her glucose is in the 100s, most recent AG is 7, CO2 is 19. Her AG has normalized so we will switch her to her home lantus and humalog. Plan: - Daily VBG, BMP, magnesium and phosphorus - discontinue dextrose - discontinue insulin drip - start home insulin, sliding scale prn - A1C tomorrow - pain control with tylenol and oxycodone - continue home PPI - carb controlled diet (2) Altered mental status Conclusion/Plan: Unclear if presentation is due to DKA, UTI, alcohol use or psychiatric etiology. Most likely multifactorial. Will continue to monitor and reassess tomorrow. I think it is appropriate to continue her antidepressant while she is here to a void uncomfortable sudden withdrawal. Plan: - continue home venlafaxine (3) UTI (urinary tract infection) Conclusion/Plan: WBCs decreased to 8.1 today. Leukocytosis upon admission may be from demargination from DKA or infection. She was able to communicate that she has pain with urination and back pain. Urinalysis shows high specific gravity, leukocyte esterase and WBCs in urine. Urine culture only grew yeast. Will switch therapy from levofloxacin to fluconazole 200 mg orally x2 weeks. Plan: - Fluconazole 200 mg PO qd (4) Alcohol use Conclusion/Plan: Daughter states she uses 16 oz of vodka daily. Last drink 10/23/23 per daughter, however unable to verify this with patient. Her CIWA has been scoring between 2-16 since admission. Toxicology screen positive for benzodiazepines. Plan: - CIWA protocol, ativan if score >8 - Supplemental thiamine, multivitamin (5) Electrolyte abnormality Conclusion/Plan: Resolved. Potassium has normalized at 3.7. I expect this to continue to vary with insulin drip, continue to monitor closely and replete as needed. She is on the ICU Electrolyte repletion protocol. (6) Systolic murmur Conclusion/Plan: Blowing systolic murmur best heard at upper sternal border likely aortic stenosis. Will obtain an echo to verify this if patient is still hospitalized when US tech is available, otherwise follow up with cardiology. Plan: - Echo on friday/follow up with cardiology
[2023-10-27] MEDS: SODIUM CHLORIDE FLUSH 0.9% 10 ML SYRINGE IVP PRN (00:51)
[2023-10-27 05:57] LABS: CALCIUM, IONIZED 1.2 mmol/L (1.15-1.33); VBG PH 7.32 (7.31-7.41)
[2023-10-27 05:58] LABS: CALCIUM 8.9 mg/dL (8.5-10.3); CREATININE 0.6 mg/dL (0.6-1.3); MAGNESIUM 1.7 mg/dL (1.7-2.3); PHOSPHORUS 2.4 mg/dL (2.5-5.0); POTASSIUM 3.6 mmol/L (3.5-4.5)
[2023-10-27] MEDS: MAGNESIUM SULFATE 2 GRAM 2 GM/50 ML BAG IV ONE (07:25)
[2023-10-27] MEDS: polyethylene glycoL 3350 17 GM PACKET PO SCH (08:11)
--- NOTE | 2023-10-27 08:11 | PROVIDER PROGRESS NOTE ---
Subjective - Prog Note Date Prog Note Date: 10/27/23 Prog Note Time: 08:08 - Subjective Subjective: Patient laying in hospital bed, intermittently snoring and moaning. Denies physical pain. Attempted to assess patient several times today, when she is awake she is crying and mumbling. She keeps her eyes closed though intermittently makes eye contact. She knows where she is and she knows she has been admitted for diabetic ketoacidosis. Uncooperative and crying when asked about time and date. I told the patient I am here to help her and she responds "you can't help me". I tell her I would like to try. I ask if I can stay and ask her questions and she consents to this. I continue to ask open ended questions. Asked patient to describe mood in one word. Asked how she is currently feeling. Asked about her life and what she does in her free time. She continues to cry. She sometimes responds to yes or no questions and then other times is uncooperative and continues to cry. Then asks for coffee. Is able to specify that she wants cream and sugar with coffee. When I give her coffee, she moves her arms to hold it, but does not bring it to her lips. She is able to communicate and direct me how to help her drink it. She intermittently gives me directions and demands and then cries when I ask about for clarification about how she would like things positioned. She states she wants to go home and I explain that we are working towards that, though she is very weak. Attempted to assess her ability to sit up in bed or move her arms however she is uncooperative. I express concern that I am not sure if she is able to understand me. She states "I can understand you". When I ask her if she is having trouble communicating with me she says no and continues to cry. Eventually she tells me to go away. As I leave I state I hope we can communicate better soon. Current Medications - Current Medications Current Medications: Active Medications Acetaminophen (Acetaminophen 325 Mg Tablet) 650 mg PO Q4HR PRN PRN Reason: Pain 1 to 4, or Fever Enoxaparin Sodium (Enoxaparin 40 Mg/0.4 Ml Syringe) 40 mg SUBQ DAILY PENDING SALE TO [facility] Last Admin: 10/26/23 08:03 Dose: 40 mg Fluconazole (Fluconazole 100 Mg Tablet) 100 mg PO DAILY PENDING SALE TO [facility] Insulin Glargine-yfgn (Insulin Glargine-Yfgn 300 Unit/3 Ml Pen) 25 unit SUBQ DAILY PENDING SALE TO [facility] Last Admin: 10/26/23 13:44 Dose: 25 unit Insulin Human Lispro (Insulin Lispro 300 Unit/3 Ml Pen) 5 unit SUBQ TIDWM PENDING SALE TO [facility]; Protocol Last Admin: 10/26/23 18:10 Dose: Not Given Insulin Human Lispro (Insulin Lispro 300 Unit/3 Ml Pen) 1 - 5 unit SUBQ 0800,1200,1700,2100 PENDING SALE TO [facility]; Protocol Last Admin: 10/26/23 20:58 Dose: Not Given Lorazepam (Lorazepam 2 Mg/Ml Vial) 1 mg IVP Q30M PRN; Protocol PRN Reason: CIWA >8 Last Admin: 10/27/23 04:47 Dose: 1 mg Ondansetron HCl (Ondansetron Odt 4 Mg Tablet) 4 mg TL Q6HR PRN PRN Reason: Nausea / Vomiting Ondansetron HCl (Ondansetron 4 Mg/2 Ml Vial) 4 mg IVP Q6HR PRN PRN Reason: Nausea / Vomiting Oxycodone HCl (Oxycodone 5 Mg Tablet) 5 mg PO Q4HR PRN PRN Reason: Pain 5 to 7 Last Admin: 10/26/23 14:49 Dose: 5 mg Pantoprazole Sodium (Pantoprazole 40 Mg Tablet) 40 mg PO QDAC PENDING SALE TO [facility] Last Admin: 10/27/23 06:29 Dose: 40 mg Polyethylene Glycol (Polyethylene Glycol 3350 17 Gm Packet) 17 gm PO DAILY PENDING SALE TO [facility] Multivit/Folic Acid/Iron ( Vitamin Tablet) 1 tab PO DAILY PENDING SALE TO [facility] Last Admin: 10/26/23 08:03 Dose: 1 tab Sodium Chloride (Sodium Chloride Flush 0.9% 10 Ml Syringe) 10 ml IVP 0100,0900,1700 PENDING SALE TO [facility] Last Admin: 10/26/23 23:53 Dose: 10 ml Sodium Chloride (Sodium Chloride Flush 0.9% 10 Ml Syringe) 10 ml IVP PRN PRN PRN Reason: NEEDED PER PROVIDER ORDERS Last Admin: 10/27/23 07:25 Dose: 10 ml Sodium Phosphate (Neutra-Phos 250 Mg Tablet) 250 mg PO Q2H PENDING SALE TO [facility]; Protocol Stop: 10/27/23 10:01 Thiamine HCl (Thiamine 100 Mg Tablet) 100 mg PO DAILY [facility] Last Admin: 10/26/23 08:03 Dose: 100 mg Irbesartan 150 mg PO DAILY 10/16/23 Levothyroxine [Synthroid] 25 mcg PO QDAC 10/16/23 Atorvastatin Calcium 40 mg PO QPM 10/25/23 Empagliflozin [Jardiance] 10 mg PO DAILY 10/25/23 Insulin NPH Hum/Reg Insulin Hm [Humulin 70/30 Kwikpen] 15 unit SUBQ QPM 10/25/23 Insulin NPH Hum/Reg Insulin Hm [Humulin 70/30 Kwikpen] 30 unit SUBQ DAILY 10/25/23 Venlafaxine ER [Effexor ER] 75 mg PO BID 10/25/23 Objective - Vital Signs/Intake & Output Reviewed Vital Signs: Yes Vital Signs: Vital Signs x48h Temp Pulse Resp BP Pulse Ox 10/27/23 07:00 68 22 170/57 H 96 10/27/23 06:00 36.8 C 93 13 117/56 L 95 10/27/23 05:00 91 24 111/93 H 95 10/27/23 04:27 36.8 C 10/27/23 04:00 85 15 154/48 H 95 10/27/23 03:00 88 14 146/76 H 97 10/27/23 02:00 83 12 138/42 H 96 10/27/23 01:00 89 15 119/46 L 95 Intake & Output: Intake & Output 10/24/23 10/25/23 10/26/23 10/27/23 23:59 23:59 23:59 23:59 Intake Total 3396.660 3293.673 Output Total 700 950 200 Balance 2696.660 2343.673 -200 - Objective General Appearance: positive: No acute distress, Alert, Anxious Eyes Bilateral: positive: No lid inflammation, Conjunctivae nml ENT: positive: ENT inspection nml Neck: positive: Nml inspection Respiratory: positive: Chest non-tender, No respiratory distress Cardiovascular: positive: Regular rate & rhythm, Systolic murmur (blowing systolic murmur) Abdomen: positive: Tenderness (Diffuse abdominal pain) Skin: positive: Warm, Dry Extremities: positive: No pedal edema, Other (minor swelling in hands bilaterally) Neurologic/Psychiatric: positive: Weakness, Depressed mood/affect (Crying consistently throughout the assessment.), Other (Oriented to self and place. Unable to assess orientation to time or date. Unable to fully assess motor function.) - Lab Results Fish Bones: 10/26/23 10:40 10/27/23 04:29 Other Labs: Lab Results x24hrs 10/27/23 10/27/23 10/27/23 Range/Units 07:49 04:29 04:29 WBC (4.8-10.8) x10^3/uL RBC (4.20-5.40) 10^6/uL Hgb (12.0-16.0) g/dL Hct (37.0-47.0) % MCV (81.0-99.0) fL MCH (27.0-31.0) pg MCHC (32.0-36.0) g/dL RDW (12.0-15.0) % Plt Count (130-450) 10^3/uL MPV (7.9-10.8) fL VBG pH 7.320 (7.31-7.41) Ionized Calcium 1.20 (1.15-1.33) mmol/L Sodium 139 (135-145) mmol/L Potassium 3.6 (3.5-4.5) mmol/L Chloride 114 H (101-111) mmol/L Carbon Dioxide 20 L (21-32) mmol/L Anion Gap 5.0 L (6-13) BUN 12 (6-20) mg/dL Creatinine 0.6 (0.6-1.3) mg/dL Estimated GFR (MDRD) 97 (>89) Glucose 158 H (74-104) mg/dL POC Whole Bld Glucose 165 H (70 - 100) mg/dL Calcium 8.9 (8.5-10.3) mg/dL Phosphorus 2.4 L (2.5-5.0) mg/dL Magnesium 1.7 (1.7-2.3) mg/dL Serum Ketones (NEGATIVE) 10/26/23 10/26/23 10/26/23 Range/Units 20:58 20:56 17:43 WBC (4.8-10.8) x10^3/uL RBC (4.20-5.40) 10^6/uL Hgb (12.0-16.0) g/dL Hct (37.0-47.0) % MCV (81.0-99.0) fL MCH (27.0-31.0) pg MCHC (32.0-36.0) g/dL RDW (12.0-15.0) % Plt Count (130-450) 10^3/uL MPV (7.9-10.8) fL VBG pH (7.31-7.41) Ionized Calcium (1.15-1.33) mmol/L Sodium (135-145) mmol/L Potassium 4.1 (3.5-4.5) mmol/L Chloride (101-111) mmol/L Carbon Dioxide (21-32) mmol/L Anion Gap (6-13) BUN (6-20) mg/dL Creatinine (0.6-1.3) mg/dL Estimated GFR (MDRD) (>89) Glucose (74-104) mg/dL POC Whole Bld Glucose 138 H 167 H (70 - 100) mg/dL Calcium (8.5-10.3) mg/dL Phosphorus (2.5-5.0) mg/dL Magnesium (1.7-2.3) mg/dL Serum Ketones (NEGATIVE) 10/26/23 10/26/23 10/26/23 Range/Units 16:20 15:52 13:53 WBC (4.8-10.8) x10^3/uL RBC (4.20-5.40) 10^6/uL Hgb (12.0-16.0) g/dL Hct (37.0-47.0) % MCV (81.0-99.0) fL MCH (27.0-31.0) pg MCHC (32.0-36.0) g/dL RDW (12.0-15.0) % Plt Count (130-450) 10^3/uL MPV (7.9-10.8) fL VBG pH (7.31-7.41) Ionized Calcium (1.15-1.33) mmol/L Sodium (135-145) mmol/L Potassium 3.7 (3.5-4.5) mmol/L Chloride (101-111) mmol/L Carbon Dioxide (21-32) mmol/L Anion Gap (6-13) BUN (6-20) mg/dL Creatinine (0.6-1.3) mg/dL Estimated GFR (MDRD) (>89) Glucose (74-104) mg/dL POC Whole Bld Glucose 178 H 128 H (70 - 100) mg/dL Calcium (8.5-10.3) mg/dL Phosphorus 3.0 (2.5-5.0) mg/dL Magnesium 1.7 (1.7-2.3) mg/dL Serum Ketones (NEGATIVE) 10/26/23 10/26/23 10/26/23 Range/Units 12:09 12:02 10:40 WBC (4.8-10.8) x10^3/uL RBC (4.20-5.40) 10^6/uL Hgb (12.0-16.0) g/dL Hct (37.0-47.0) % MCV (81.0-99.0) fL MCH (27.0-31.0) pg MCHC (32.0-36.0) g/dL RDW (12.0-15.0) % Plt Count (130-450) 10^3/uL MPV (7.9-10.8) fL VBG pH 7.241 L (7.31-7.41) Ionized Calcium 1.21 (1.15-1.33) mmol/L Sodium 142 (135-145) mmol/L Potassium 3.7 (3.5-4.5) mmol/L Chloride 116 H (101-111) mmol/L Carbon Dioxide 19 L (21-32) mmol/L Anion Gap 7.0 (6-13) BUN 15 (6-20) mg/dL Creatinine 0.6 (0.6-1.3) mg/dL Estimated GFR (MDRD) 97 (>89) Glucose 136 H (74-104) mg/dL POC Whole Bld Glucose 149 H (70 - 100) mg/dL Calcium 8.4 L (8.5-10.3) mg/dL Phosphorus (2.5-5.0) mg/dL Magnesium (1.7-2.3) mg/dL Serum Ketones (NEGATIVE) 10/26/23 10/26/23 10/26/23 Range/Units 10:40 09:59 09:05 WBC 8.1 (4.8-10.8) x10^3/uL RBC 4.08 L (4.20-5.40) 10^6/uL Hgb 11.1 L (12.0-16.0) g/dL Hct 35.5 L (37.0-47.0) % MCV 87.0 (81.0-99.0) fL MCH 27.2 (27.0-31.0) pg MCHC 31.3 L (32.0-36.0) g/dL RDW 15.3 H (12.0-15.0) % Plt Count 249 (130-450) 10^3/uL MPV 10.3 (7.9-10.8) fL VBG pH (7.31-7.41) Ionized Calcium (1.15-1.33) mmol/L Sodium (135-145) mmol/L Potassium (3.5-4.5) mmol/L Chloride (101-111) mmol/L Carbon Dioxide (21-32) mmol/L Anion Gap (6-13) BUN (6-20) mg/dL Creatinine (0.6-1.3) mg/dL Estimated GFR (MDRD) (>89) Glucose (74-104) mg/dL POC Whole Bld Glucose 154 H 178 H (70 - 100) mg/dL Calcium (8.5-10.3) mg/dL Phosphorus (2.5-5.0) mg/dL Magnesium (1.7-2.3) mg/dL Serum Ketones (NEGATIVE) 10/26/23 Range/Units 07:30 WBC (4.8-10.8) x10^3/uL RBC (4.20-5.40) 10^6/uL Hgb (12.0-16.0) g/dL Hct (37.0-47.0) % MCV (81.0-99.0) fL MCH (27.0-31.0) pg MCHC (32.0-36.0) g/dL RDW (12.0-15.0) % Plt Count (130-450) 10^3/uL MPV (7.9-10.8) fL VBG pH (7.31-7.41) Ionized Calcium (1.15-1.33) mmol/L Sodium (135-145) mmol/L Potassium (3.5-4.5) mmol/L Chloride (101-111) mmol/L Carbon Dioxide (21-32) mmol/L Anion Gap (6-13) BUN (6-20) mg/dL Creatinine (0.6-1.3) mg/dL Estimated GFR (MDRD) (>89) Glucose (74-104) mg/dL POC Whole Bld Glucose (70 - 100) mg/dL Calcium (8.5-10.3) mg/dL Phosphorus (2.5-5.0) mg/dL Magnesium (1.7-2.3) mg/dL Serum Ketones SMALL H (NEGATIVE) Assessment/Plan - Problem List (1) DKA, type 2 Impression: Most likely etiology is insulin noncompliance as 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 Per pharmacy she is on lantus and humalog, however this was last filled at the pharmacy in July 2023. Possible UTI or alcohol abuse, SGLT-2 inhibitors could be triggering DKA. Today her glucose is in the 100s, most recent AG is 5, CO2 is 20. Plan: - Daily VBG, BMP, magnesium and phosphorus - start home insulin, sliding scale prn - pain control with tylenol and oxycodone - continue home PPI (2) Type 2 diabetes mellitus Impression: Poorly controlled overall with an A1c of 9.7. Estimated average glucose is 232. As above it appears she is not picking up her insulin regularly. Plan: - home insulin, lantus and humalog - sliding scale prn - carb controlled diet (3) Generalized weakness Impression: Patient has been laying in hospital bed since she has arrived, unable to get up and ambulate. She appears weaker than her baseline, per daughter she uses a walker to ambulate independently at home. Plan: - PT/OT (4) Altered mental status Impression: Unclear if presentation is due to DKA, UTI, alcohol use or psychiatric etiology. Most likely multifactorial. She seems to understand questions however is uncooperative. Will continue to monitor and reassess tomorrow. I think it is appropriate to continue her antidepressant while she is here to avoid uncomfortable sudden withdrawal. Plan: - continue home venlafaxine (5) UTI (urinary tract infection) Impression: WBCs decreased to 8.1 today. Leukocytosis upon admission may be from demargination from DKA or infection. She was able to communicate that she has pain with urination and back pain. Urinalysis shows high specific gravity, leukocyte esterase and WBCs in urine. Urine culture only grew yeast. Switched therapy 10/26 from levofloxacin to fluconazole 200 mg orally x2 weeks. Today her QT interval was lengthened, fluconazole is the only medication concerning for this. Will order an EKG Plan: - EKG - Fluconazole 200 mg PO qd (6) Alcohol use Impression: Daughter states she uses 16 oz of vodka daily. Last drink 10/23/23 per daughter, however unable to verify this with patient. Her CIWA has been scoring between 8-10 today. Toxicology screen upon admission was positive for benzodiazepines. Plan: - CIWA protocol, ativan if score >8 - Supplemental thiamine, multivitamin (7) Electrolyte abnormality Impression: Resolved. Potassium has normalized. Continue to monitor closely and replete as needed. (8) Systolic murmur Impression: Blowing systolic murmur best heard at upper sternal border likely aortic stenosis. Will obtain an echo to verify this if patient is still hospitalized when US tech is available, otherwise follow up with cardiology. Plan: - Echo on friday/follow up with cardiology
[2023-10-27] MEDS: NEUTRA-PHOS 250 MG TABLET PO SCH (08:13)
[2023-10-27] MEDS: FLUCONAZOLE 100 MG TABLET PO SCH (08:14)
[2023-10-27 12:40] LABS: ESTIMATED AVERAGE GLUCOSE 232 mg/dL (70-100); HEMOGLOBIN A1c% 9.7 % (4.27-6.07)
[2023-10-27] MEDS: ACETAMINOPHEN 325 MG TABLET PO PRN (17:41)
[2023-10-28 05:53] LABS: BASOPHILS % (AUTO) 0.6 %; EOSINOPHILS # (AUTO) 0.1 10^3/uL (0.0-0.7); HCT - HEMATOCRIT 34.7 % (37.0-47.0); HGB - HEMOGLOBIN 10.9 g/dL (12.0-16.0); LYMPHOCYTES % (AUTO) 29.8 %; MEAN CORPUSCULAR HEMOGLOBIN 26.9 pg (27.0-31.0); MEAN CORPUSCULAR HGB CONC 31.4 g/dL (32.0-36.0); MEAN CORPUSCULAR VOLUME 85.7 fL (81.0-99.0); MEAN PLATELET VOLUME 10.6 fL (7.9-10.8); MONOCYTES # (AUTO) 0.5 10^3/uL (0.0-1.0); MONOCYTES % (AUTO) 8.1 %; NEUTROPHILS # (AUTO) 3.9 10^3/uL (1.5-6.6); NEUTROPHILS % (AUTO) 59.3 %; PLT - PLATELET COUNT 264 10^3/uL (130-450); RED BLOOD COUNT 4.05 10^6/uL (4.20-5.40); RED CELL DISTRIBUTION WIDTH 15.2 % (12.0-15.0); WHITE BLOOD COUNT 6.5 x10^3/uL (4.8-10.8)
[2023-10-28 05:59] LABS: CALCIUM, IONIZED 1.15 mmol/L (1.15-1.33); VBG PH 7.408 (7.31-7.41)
[2023-10-28 06:12] LABS: CALCIUM 8.8 mg/dL (8.5-10.3); CREATININE 0.6 mg/dL (0.6-1.3); MAGNESIUM 1.6 mg/dL (1.7-2.3); PHOSPHORUS 4.4 mg/dL (2.5-5.0); POTASSIUM 3.3 mmol/L (3.5-4.5)
[2023-10-28] MEDS: POTASSIUM CHLORIDE 10 MEQ CAPSULE PO SCH (11:11)
[2023-10-28] MEDS: MAGNESIUM SULFATE 2 GRAM 2 GM/50 ML BAG IV ONE (11:12)
--- NOTE | 2023-10-28 12:50 | PROVIDER PROGRESS NOTE ---
Assessment/Plan - Problem List (1) DKA, type 2 Assessment/Plan: Poorly controlled DM with an A1c of 9.7. Estimated average glucose is 232. As above it appears she is not picking up her insulin regularly. Aslo, her alcohol abuse is adding to elevated serum glu levels Plan: Resume home insulin, cont sliding scale prn Cont fingerstick checks, DM diet and hypoglycemia protocol SW and Materials Handler will be requested to see her about her diet including her excessive alcohol intake, when she is communicating (2) Altered mental status Impression: She is sleepy, minimally communicative and when touched or spoken to, she starts crying and screams when crying. Unclear if her AMS presentation was due to DKA, UTI, alcohol use with withdrawal, psychiatric etiology or from old strokes (seen on head CT). Most likely multifactorial. She seems to understand questions however she has been speaking minimally CT head imaging was done and showed no acute problems but did report prior strokes in R occipital lobe and L anitha Plan: Continue home Venlafaxine Will order eval by PT/OT, since she was apparently walking before admission Will minimize narcotics Despite daughter telling admitting Hospitalist that pt's Code status is DNR, the orders state Full Code. Today I asked SW to contact daughter to bring in her POLST to confirm the pt's Code Blue status/wishes. (3) UTI (urinary tract infection) Impression: Leukocytosis at time of admission may have been from demargination from DKA or from her infection. She was able to communicate that she has pain with urination and back pain. Urinalysis showed high specific gravity, leukocyte esterase and WBCs in urine. Urine culture only grew yeast. We switched therapy 10/26 from levofloxacin to fluconazole 200 mg orally and planning that for 2 weeks. On 10/27 her QT interval was lengthened, fluconazole is the only medication concerning for this. We ordered an EKG, was done on 10/27/23, which I interpreted: Normal sinus rhythm, rate 80, early R/S transition consistent with cor pulmonale. No prior EKG available for comparison. Plan: Cont Fluconazole 200 mg PO qd (4) Alcohol use Impression: Daughter states she uses 16 oz of vodka daily. Last drink was 10/23/23 per daughter, however unable to verify this with patient. Her CIWA has been scoring 8 today. Toxicology screen upon admission was also positive for benzodiazepines. Plan: Cont CIWA protocol, and to give iv Ativan if score >8 Supplemental thiamine, multivitamin ordered (5) Systolic murmur Impression: She has a systolic murmur best heard at upper sternal border, is likely aortic stenosis. Plan: Awaiting Echo and she will need follow up with Cardiology (6) Electrolyte abnornality Impression: All labs were reviewed and she again has a low potassium and low magnesium today. I suspect this is from poor oral intake in a patient with alcohol abuse history Plan: Replace K and mag Follow BMP and Mg daily (7) DKA, type 2 Impression: RESOLVED Most likely etiology is insulin noncompliance as it seems she is unable to picker medications consistently. Per our pharmacy, she is on lantus and humalog, however this was last filled at the pharmacy in July 2023 (4 mos ago). Also possibly her UTI or alcohol abuse, SGLT-2 inhibitors, could be triggering DKA. With resolution of acidosis, her Insulin drip was stopped on 10/26 and she was transferred out of ICU yesterday 10/27 Plan: Resume home insulin Cont fingerstick checks, sliding scale Insulin coverage, DM diet and hypoglycemia protocol - Current Meds Current Meds: Current Medications Generic Name Dose Route Start Last Admin Trade Name Freq PRN Reason Stop Dose Admin Acetaminophen 650 mg 10/25/23 12:21 10/27/23 17:41 Acetaminophen 325 Mg Tablet PO 650 mg Q4HR PRN Administration Pain 1 to 4, or Fever Enoxaparin Sodium 40 mg 10/26/23 09:00 10/28/23 10:03 Enoxaparin 40 Mg/0.4 Ml Syringe SUBQ 40 mg DAILY CURTIS Administration Fluconazole 100 mg 10/27/23 09:00 10/28/23 10:03 Fluconazole 100 Mg Tablet PO 100 mg DAILY CURTIS Administration Insulin Glargine-yfgn 25 unit 10/26/23 13:00 10/28/23 10:05 Insulin Glargine-Yfgn 300 Unit/3 Ml Pen SUBQ 25 unit DAILY CURTIS Administration Insulin Human Lispro 5 unit 10/26/23 13:10/28/23 11:11 Insulin Lispro 300 Unit/3 Ml Pen SUBQ Not Given TIDWM CURTIS Protocol Insulin Human Lispro 1 - 5 unit 10/26/23 17:00 10/28/23 10:06 Insulin Lispro 300 Unit/3 Ml Pen SUBQ 1 unit 0800,1200,1700,2100 CURTIS Administration Protocol Lorazepam 1 mg 10/25/23 18:44 10/27/23 18:00 Lorazepam 2 Mg/Ml Vial IVP 1 mg Q30M PRN Administration CIWA >8 Protocol Oxycodone HCl 5 mg 10/25/23 12:21 10/28/23 11:12 Oxycodone 5 Mg Tablet PO 5 mg Q4HR PRN Administration Pain 5 to 7 Pantoprazole Sodium 40 mg 10/26/23 07:00 10/28/23 06:35 Pantoprazole 40 Mg Tablet PO 40 mg QDAC CURTIS Administration Polyethylene Glycol 17 gm 10/27/23 09:00 10/28/23 10:04 Polyethylene Glycol 3350 17 Gm Packet PO 17 gm DAILY CURTIS Administration Potassium Chloride 20 meq 10/28/23 10:16 10/28/23 11:11 Potassium Chloride 10 Meq Capsule PO 20 meq DAILYWM CURTIS Administration Multivit/Folic Acid/Iron 1 tab 10/26/23 09:00 10/28/23 10:03 Vitamin Tablet PO 1 tab DAILY CURTIS Administration Sodium Chloride 10 ml 10/25/23 17:00 10/28/23 10:04 Sodium Chloride Flush 0.9% 10 Ml Syringe IVP 10 ml 0100,0900,1700 CURTIS Administration Sodium Chloride 10 ml 10/25/23 12:21 10/27/23 23:49 Sodium Chloride Flush 0.9% 10 Ml Syringe IVP 10 ml PRN PRN Administration NEEDED PER PROVIDER ORDERS Thiamine HCl 100 mg 10/26/23 09:00 10/28/23 10:03 Thiamine 100 Mg Tablet PO 100 mg DAILY CURTIS Administration - Lab Result Fish Bone Diagrams: 10/28/23 05:44 10/28/23 05:44 - EKG Results EKG Interpreted Independently: Yes EKG Comparison: Old EKG unavailable EKG Findings: EKG was done 10/27/23 and showed Normal sinus rhythm, rate 80, early R/S transition consistent with cor pulmonale, normal QTc of 471 msec. No prior EKG available for comparison. - Additional Planning My Orders: My Active Orders 10/28/23 Evaluate and Treat OT [OT] Routine Evaluate and Treat PT [PT] Routine 10/28/23 10:16 Potassium Chloride [Micro-K] 20 meq PO DAILYWM Subjective - Subjective Patient Reports: Other (Crying tears when spoken to, then stops and answers) Nursing Reports: Other (Does not follow direstions. Is mostlt=y asleep. Screams in pain and starts crying when touched anywhere even gently.) Objective Vital Signs: Vital Signs - 24 hr 10/27/23 10/27/23 10/27/23 13:00 14:00 15:00 Temperature Heart Rate [ Brachial] Heart Rate [ 90 89 87 Monitoring electrodes] Respiratory 19 21 18 Rate Blood Pressure 159/51 H 161/57 H 125/68 [Right Brachial artery] O2 Saturation 96 94 94 10/27/23 10/27/23 10/27/23 16:00 17:00 18:00 Temperature 98.7 C H Heart Rate [ Brachial] Heart Rate [ 95 86 88 Monitoring electrodes] Respiratory 20 18 20 Rate Blood Pressure 86/63 L 88/58 L [Right Brachial artery] O2 Saturation 95 96 95 10/27/23 10/27/23 10/27/23 18:57 20:41 23:42 Temperature 36.7 C 36.9 C Heart Rate [ 89 82 Brachial] Heart Rate [ 83 Monitoring electrodes] Respiratory 24 18 Rate Blood Pressure 132/82 H 149/82 H 130/53 L [Right Brachial artery] O2 Saturation 97 96 10/28/23 10/28/23 10/28/23 04:29 07:33 11:11 Temperature 36.7 C 37.1 C 37.1 C Heart Rate [ 106 H 106 H 110 H Brachial] Heart Rate [ Monitoring electrodes] Respiratory 20 24 22 Rate Blood Pressure 159/90 H 154/90 H 159/76 H [Right Brachial artery] O2 Saturation 95 94 94 Oxygen O2 Source Room air I&O (Last 24 Hrs): Intake and Output Totals x24h 10/26/23 10/27/23 10/28/23 23:59 23:59 23:59 Intake Total 3393.673 1120 Output Total 950 425 Balance 2443.673 695 General: Other (lethargic, answers using 2 word sentences with eyes closed) HEENT: Mucous membr. moist/pink Neck: Supple Neuro: Other (lethargic and disoriented, screams when crying tears, then will stop crying and answer speaking in short sebtences, moves all extrem spontaneously) Cardiovascular: Regular rate, Other (sayst murmur 2/6 at base) Respiratory: No respiratory distress, Rhonchi Abdomen: Soft Extremities: Other (Fingers have RA changes. Feet and hands to wrists have mild edema) - Results Results: Laboratory Results WBC 6.5 x10^3/uL (4.8-10.8) 10/28/23 05:44 RBC 4.05 10^6/uL (4.20-5.40) L 10/28/23 05:44 Hgb 10.9 g/dL (12.0-16.0) L 10/28/23 05:44 Hct 34.7 % (37.0-47.0) L 10/28/23 05:44 MCV 85.7 fL (81.0-99.0) 10/28/23 05:44 MCH 26.9 pg (27.0-31.0) L 10/28/23 05:44 MCHC 31.4 g/dL (32.0-36.0) L 10/28/23 05:44 RDW 15.2 % (12.0-15.0) H 10/28/23 05:44 Plt Count 264 10^3/uL (130-450) 10/28/23 05:44 MPV 10.6 fL (7.9-10.8) 10/28/23 05:44 Neut # (Auto) 3.9 10^3/uL (1.5-6.6) 10/28/23 05:44 Lymph # (Auto) 2.0 10^3/uL (1.5-3.5) 10/28/23 05:44 [place] # (Auto) 0.5 10^3/uL (0.0-1.0) 10/28/23 05:44 Eos # (Auto) 0.1 10^3/uL (0.0-0.7) 10/28/23 05:44 Baso # (Auto) 0.0 10^3/uL (0.0-0.1) 10/28/23 05:44 Absolute Nucleated RBC 0.00 x10^3/uL 10/28/23 05:44 Nucleated RBC % 0.0 /100WBC 10/28/23 05:44 VBG pH 7.408 (7.31-7.41) 10/28/23 05:44 VBG pCO2 32.3 mmHg (41-51) L 10/26/23 06:12 VBG pO2 48.4 mmHg (25-47) H 10/26/23 06:12 VBG HCO3 14.2 mmol/L (23-28) L 10/26/23 06:12 VBG Total CO2 15.2 mmol/L (24-29) L 10/26/23 06:12 VBG O2 Saturation 86.6 % (60-80) H 10/26/23 06:12 VBG Base Excess -11.7 mmol/L (-2 - +2) L 10/26/23 06:12 Ionized Calcium 1.15 mmol/L (1.15-1.33) 10/28/23 05:44 Sodium 140 mmol/L (135-145) 10/28/23 05:44 Potassium 3.3 mmol/L (3.5-4.5) L 10/28/23 05:44 Chloride 110 mmol/L (101-111) 10/28/23 05:44 Carbon Dioxide 25 mmol/L (21-32) 10/28/23 05:44 Anion Gap 5.0 (6-13) L 10/28/23 05:44 BUN 11 mg/dL (6-20) 10/28/23 05:44 Creatinine 0.6 mg/dL (0.6-1.3) 10/28/23 05:44 Estimated GFR (MDRD) 97 (>89) 10/28/23 05:44 Glucose 143 mg/dL (74-104) H 10/28/23 05:44 POC Whole Bld Glucose 182 mg/dL (70 - 100) H 10/28/23 11:03 Estimat Average Glucose 232 mg/dL (70-100) H 10/27/23 04:29 Hemoglobin A1c % 9.7 % (4.27-6.07) H 10/27/23 04:29 Calcium 8.8 mg/dL (8.5-10.3) 10/28/23 05:44 Phosphorus 4.4 mg/dL (2.5-5.0) 10/28/23 05:44 Magnesium 1.6 mg/dL (1.7-2.3) L 10/28/23 05:44 Total Bilirubin 0.3 mg/dL (0.2-1.0) 10/25/23 05:21 AST 10 IU/L (10-42) 10/25/23 05:21 ALT 9 IU/L (10-60) L 10/25/23 05:21 Alkaline Phosphatase 60 IU/L (42-121) 10/25/23 05:21 Troponin I High Sens 4.9 ng/L (2.3-14.8) 10/25/23 11:15 Total Protein 7.1 g/dL (6.4-8.9) 10/25/23 05:21 Albumin 4.5 g/dL (3.2-5.5) 10/25/23 05:21 Globulin 2.6 g/dL (2.1-4.2) 10/25/23 05:21 Albumin/Globulin Ratio 1.7 (1.0-2.2) 10/25/23 05:21 Lipase < 10 U/L (11-82) L 10/25/23 05:21 Urine Color LIGHT YELLOW 10/25/23 16:40 Urine Clarity HAZY (CLEAR) 10/25/23 16:40 Urine pH 5.5 PH (5.0-7.5) 10/25/23 16:40 Ur Specific [place] >=1.030 (1.002-1.030) H 10/25/23 16:40 Urine Protein TRACE mg/dL (NEGATIVE) 10/25/23 16:40 Urine Glucose (UA) 500 mg/dL (NEGATIVE) H 10/25/23 16:40 Urine Ketones >=80 mg/dL (NEGATIVE) H 10/25/23 16:40 Urine Occult Blood TRACE-INTA (NEGATIVE) 10/25/23 16:40 Urine Nitrite NEGATIVE (NEGATIVE) 10/25/23 16:40 Urine Bilirubin NEGATIVE (NEGATIVE) 10/25/23 16:40 Urine Urobilinogen 0.2 (NORMAL) E.U./dL (NORMAL) 10/25/23 16:40 Ur Leukocyte Esterase TRACE (NEGATIVE) H 10/25/23 16:40 Urine RBC 0-5 /HPF (0-5) 10/25/23 16:40 Urine WBC 11-25 /HPF (0-5) H 10/25/23 16:40 Ur Squamous Epith Cells RARE Squamous (<= Few) 10/25/23 16:40 Urine Bacteria Few /HPF (None Seen) 10/25/23 16:40 Urine Yeast PRESENT 10/25/23 16:40 Ur Microscopic Review INDICATED 10/25/23 16:40 Urine Culture Comments INDICATED 10/25/23 16:40 Nasal Adenovirus (PCR) NOT DETECTED 10/25/23 11:49 Nasal B. parapertussis DNA (PCR) NOT DETECTED 10/25/23 11:49 Nasal Coronavir 229E PCR NOT DETECTED 10/25/23 11:49 Nasal Coronavir HKU1 PCR NOT DETECTED 10/25/23 11:49 Nasal Coronavir NL63 PCR NOT DETECTED 10/25/23 11:49 Nasal Coronavir OC43 PCR NOT DETECTED 10/25/23 11:49 Nasal Enterovir/Rhinovir PCR NOT DETECTED 10/25/23 11:49 Nasal Influenza B PCR NOT DETECTED 10/25/23 11:49 Nasal Influenza A PCR NOT DETECTED 10/25/23 11:49 Nasal Parainfluen 1 PCR NOT DETECTED 10/25/23 11:49 Nasal Parainfluen 2 PCR NOT DETECTED 10/25/23 11:49 Nasal Parainfluen 3 PCR NOT DETECTED 10/25/23 11:49 Nasal Parainfluen 4 PCR NOT DETECTED 10/25/23 11:49 Nasal RSV (PCR) NOT DETECTED 10/25/23 11:49 Nasal Screen MRSA (PCR) NEGATIVE (NEGATIVE) 10/25/23 14:00 Nasal B.pertussis DNA PCR NOT DETECTED 10/25/23 11:49 Nasal C.pneumoniae (PCR) NOT DETECTED 10/25/23 11:49 David Human Metapneumo PCR NOT DETECTED 10/25/23 11:49 Nasal M.pneumoniae (PCR) NOT DETECTED 10/25/23 11:49 Nasal SARS-CoV-2 (PCR) NOT DETECTED 10/25/23 11:49 Urine Opiates Screen NEGATIVE (NEGATIVE) 10/25/23 05:58 Ur Buprenorphine Scrn NEGATIVE (NEGATIVE) 10/25/23 05:58 Ur Oxycodone Screen NEGATIVE (NEGATIVE) 10/25/23 05:58 Urine Methadone Screen NEGATIVE (NEGATIVE) 10/25/23 05:58 Ur Barbiturates Screen NEGATIVE (NEGATIVE) 10/25/23 05:58 Ur Tricyclics Screen NEGATIVE (NEGATIVE) 10/25/23 05:58 Ur Phencyclidine Scrn NEGATIVE (NEGATIVE) 10/25/23 05:58 Ur Amphetamine Screen NEGATIVE (NEGATIVE) 10/25/23 05:58 U Methamphetamines Scrn NEGATIVE (NEGATIVE) 10/25/23 05:58 U Benzodiazepines Scrn POSITIVE (NEGATIVE) H 10/25/23 05:58 Urine Cocaine Screen NEGATIVE (NEGATIVE) 10/25/23 05:58 U Cannabinoids Screen NEGATIVE (NEGATIVE) 10/25/23 05:58 Ur Drug Screen Comment CUTOFF CONC BELOW: 10/25/23 05:58 Ethyl Alcohol < 10.0 mg/dL 10/25/23 05:21 Serum Ketones SMALL (NEGATIVE) H 10/26/23 07:30
[2023-10-29 06:01] LABS: BASOPHILS % (AUTO) 0.5 %; EOSINOPHILS % (AUTO) 0.2 %; HCT - HEMATOCRIT 36.9 % (37.0-47.0); HGB - HEMOGLOBIN 11.3 g/dL (12.0-16.0); LYMPHOCYTES # (AUTO) 1.3 10^3/uL (1.5-3.5); LYMPHOCYTES % (AUTO) 20.6 %; MEAN CORPUSCULAR HEMOGLOBIN 26.6 pg (27.0-31.0); MEAN CORPUSCULAR HGB CONC 30.6 g/dL (32.0-36.0); MEAN CORPUSCULAR VOLUME 86.8 fL (81.0-99.0); MEAN PLATELET VOLUME 10.9 fL (7.9-10.8); MONOCYTES # (AUTO) 0.7 10^3/uL (0.0-1.0); MONOCYTES % (AUTO) 11.4 %; NEUTROPHILS # (AUTO) 4.4 10^3/uL (1.5-6.6); PLT - PLATELET COUNT 263 10^3/uL (130-450); RED BLOOD COUNT 4.25 10^6/uL (4.20-5.40); RED CELL DISTRIBUTION WIDTH 15.3 % (12.0-15.0); WHITE BLOOD COUNT 6.5 x10^3/uL (4.8-10.8)
[2023-10-29 06:02] LABS: CALCIUM, IONIZED 1.09 mmol/L (1.15-1.33); VBG PH 7.306 (7.31-7.41)
[2023-10-29 06:14] LABS: CALCIUM 8.7 mg/dL (8.5-10.3); CREATININE 0.8 mg/dL (0.6-1.3); MAGNESIUM 1.7 mg/dL (1.7-2.3); PHOSPHORUS 4.3 mg/dL (2.5-5.0); POTASSIUM 3.6 mmol/L (3.5-4.5)
--- NOTE | 2023-10-29 12:00 | XRAY Report ---
PROCEDURE: Chest 1V INDICATIONS: cough, possibly aspirated TECHNIQUE: One view of the chest was acquired. COMPARISON: 10/25/2023 FINDINGS: Surgical changes and devices: None. Lungs and pleura: Mildly prominent interstitium. No new consolidation or pleural effusion. Mediastinum: Normal heart size Bones and chest wall: Degenerative changes. IMPRESSION: Limited single view portable chest with low lung volumes. The interstitium is mildly prominent, which could represent atypical infection or edema. No new conso lidation or pleural effusion. Reviewed by: Alvin Bautista MD on 10/29/2023 11:59 AM PST Approved by: Alvin Bautista MD on 10/29/2023 11:59 AM PST Station ID: [id number]
[2023-10-29] MEDS: VENLAFAXINE ER 75 MG CAPSULE PO SCH (14:07)
--- NOTE | 2023-10-29 15:44 | MRI Report ---
PROCEDURE: Brain WO INDICATIONS: R sided weakness, Hx of old strokes TECHNIQUE: Noncontrast axial T1 spin echo, axial T2 fast spin echo, sagittal and axial FLAIR, coronal T2 fast sp in echo, axial gradient echo, axial diffusion and ADC through the brain. COMPARISON: None. FINDINGS: Image quality: Patient motion artifact. Diagnostic for excluding acute stroke.. CSF Spaces: Basal cisterns are patent. No extra-axial fluid collections. Ventricles are normal in size and shape. Brain: No intracranial masses or hemorrhage. There is extensive patient motion artifact present on the axial FLAIR sequence. There is an old right HEMATOLOGY SUPERVISOR distribution occipital infarct with associated en cephalomalacia. There is age-related volume loss. Zambrano/white matter interface is normal. Brainstem a ppears normal. Diffusion-weighted images demonstrate no acute ischemic insult. Normal intravascular flow voids are present. Skull and face: Calvarium has normal marrow signal. Orbits appear normal. Sinuses: Sinuses and mastoids are clear. IMPRESSION: 1. No acute infarct noted. 2. 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 3. Age-related volume loss. 4. Note is made of significant patient motion artifact. However, images are diagnostic for excluding acute stroke. Reviewed by: Vincenzo Trivedi MD on 10/29/2023 3:43 PM PST Approved by: Vincenzo Trivedi MD on 10/29/2023 3:43 PM PST Station ID: [id number]
--- NOTE | 2023-10-29 16:03 | PROVIDER PROGRESS NOTE ---
Assessment/Plan - Problem List (1) Altered mental status Assessment/Plan: She is sleepy, minimally communicative and when touched or spoken to, she starts crying tears and screams when crying. Unclear if her AMS presentation was due to DKA, UTI, alcohol use with withdrawal, psychiatric etiology or from old strokes (seen on head CT). Most likely multifactorial. 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 Today RN noticed that she is more flaccid on the right side. Today RN spoke to Joan the daughter to obtain consent for a brain MRI. Joan told us that the patient responds with crying tears and screaming ever since her second stroke. Joan says that the right-sided weakness and somnolence is new because her mother was able to use a walker in the past. There have been 2 recent falls and the patient normally has to climb stairs to get to her bedroom which, the daughter is afraid, she will be no longer able to do. Despite daughter telling admitting Hospitalist that pt's Code status is DNR, the orders state Full Code. Today daughter told pt's RN that the most recent POLST was done 4 mos ago at a rehab facility in [place]. Plan: Diet changed to purred with thin liquids ST eval of her swallow ordered Continue home Venlafaxine Obtain brain MRI (2) DM, type 2 Poorly controlled DM with an A1c of 9.7. Estimated average glucose is 232. We learned she was not picking up her insulin regularly. Aslo, her alcohol abuse is adding to elevated serum glu levels Plan: Cont ling acting insulin, cont sliding scale with prn SSI, cancel mealtime Insulin Cont fingerstick checks, DM diet and hypoglycemia protocol (3) UTI (urinary tract infection) Impression: Leukocytosis at time of admission may have been from demargination from DKA or from her infection. She was able to communicate that she has pain with urination and back pain. Urinalysis showed high specific gravity, leukocyte esterase and WBCs in urine. Urine culture only grew yeast. We switched therapy 10/26 from levofloxacin to fluconazole 200 mg orally and planning that for 2 weeks. On 10/27 her QT interval was lengthened, fluconazole is the only medication concerning for this. We ordered an EKG, was done on 10/27/23, which I interpreted: Normal sinus rhythm, rate 80, early R/S transition consistent with cor pulmonale. No prior EKG available for comparison. Plan: Cont Fluconazole 200 mg PO qd (4) Alcohol use Impression: Daughter stated she drinks 16 oz of vodka daily. Last drink was 10/23/23 per daughter, however unable to verify this with patient. Her CIWA has been scoring 8 today. Toxicology screen upon admission was also positive for benzodiazepines. Plan: Cont CIWA protocol, and to give iv Ativan if score >8 Supplemental thiamine, multivitamin ordered (5) Aortic stenosis Impression: She has a systolic murmur best heard at upper sternal border. An Echo was done and confirmed , mild in degree Plan: She will need follow up with Cardiology (6) Electrolyte abnornality Impression: All labs were reviewed and she again has a low potassium and low magnesium today. I suspect this is from poor oral intake in a patient with alcohol abuse history Plan: Replace K and mag Follow BMP and Mg daily (7) DKA, type 2 Impression: RESOLVED Most likely etiology is insulin noncompliance as it seems she is unable to filler picker medications consistently. Per our pharmacy, she is on lantus and humalog, however this was last filled at the pharmacy in July 2023 (4 mos ago). Also possibly her UTI or alcohol abuse, SGLT-2 inhibitors, could be triggering DKA. With resolution of acidosis, her Insulin drip was stopped on 10/26 and she was transferred out of ICU yesterday 10/27 Plan: Resume home insulin Cont fingerstick checks, sliding scale Insulin coverage, DM diet and hypoglycemia protocol - Current Meds Current Meds: Current Medications Generic Name Dose Route Start Last Admin Trade Name Freq PRN Reason Stop Dose Admin Acetaminophen 650 mg 10/25/23 12:21 10/29/23 02:08 Acetaminophen 325 Mg Tablet PO 650 mg Q4HR PRN Administration Pain 1 to 4, or Fever Enoxaparin Sodium 40 mg 10/26/23 09:00 10/29/23 09:51 Enoxaparin 40 Mg/0.4 Ml Syringe SUBQ 40 mg DAILY CURTIS Administration Fluconazole 100 mg 10/27/23 09:00 10/29/23 09:49 Fluconazole 100 Mg Tablet PO 100 mg DAILY CURTIS Administration Insulin Glargine-yfgn 25 unit 10/26/23 13:00 10/29/23 09:52 Insulin Glargine-Yfgn 300 Unit/3 Ml Pen SUBQ 25 unit DAILY CURTIS Administration Insulin Human Lispro 1 - 5 unit 10/26/23 17:00 10/29/23 14:05 Insulin Lispro 300 Unit/3 Ml Pen SUBQ 3 unit 0800,1200,1700,2100 CURTIS Administration Protocol Lorazepam 1 mg 10/25/23 18:44 10/27/23 18:00 Lorazepam 2 Mg/Ml Vial IVP 1 mg Q30M PRN Administration CIWA >8 Protocol Oxycodone HCl 5 mg 10/25/23 12:21 10/28/23 16:16 Oxycodone 5 Mg Tablet PO 5 mg Q4HR PRN Administration Pain 5 to 7 Pantoprazole Sodium 40 mg 10/26/23 07:00 10/29/23 06:07 Pantoprazole 40 Mg Tablet PO 40 mg QDAC CURTIS Administration Polyethylene Glycol 17 gm 10/27/23 09:00 10/29/23 09:52 Polyethylene Glycol 3350 17 Gm Packet PO Not Given DAILY CURTIS Potassium Chloride 20 meq 10/28/23 10:16 10/29/23 09:49 Potassium Chloride 10 Meq Capsule PO 20 meq DAILYWM CURTIS Administration Multivit/Folic Acid/Iron 1 tab 10/26/23 09:00 10/29/23 09:49 Vitamin Tablet PO 1 tab DAILY CURTIS Administration Sodium Chloride 10 ml 10/25/23 17:00 10/29/23 09:53 Sodium Chloride Flush 0.9% 10 Ml Syringe IVP 10 ml 0100,0900,1700 CURTIS Administration Sodium Chloride 10 ml 10/25/23 12:21 10/27/23 23:49 Sodium Chloride Flush 0.9% 10 Ml Syringe IVP 10 ml PRN PRN Administration NEEDED PER PROVIDER ORDERS Thiamine HCl 100 mg 10/26/23 09:00 10/29/23 09:49 Thiamine 100 Mg Tablet PO 100 mg DAILY CURTIS Administration Venlafaxine HCl 75 mg 10/29/23 12:00 10/29/23 14:07 Venlafaxine Er 75 Mg Capsule PO 75 mg BID CURTIS Administration - Lab Result Fish Bone Diagrams: 10/29/23 05:30 10/29/23 05:30 - Additional Planning My Orders: My Active Orders 10/28/23 18:59 Telemetry- [RC] Q4HR 10/29/23 Swallow [Clinical Swallow Eval w/Modified ST] [ST] Routine 10/29/23 Lunch Carb-controlled Diet [DIET] 10/29/23 11:44 RN MRI Screening [] .ONCE 10/29/23 12:00 Venlafaxine ER [Effexor ER] 75 mg PO BID 10/29/23 Dinner Dysphagia - Puree [DIET] 10/30/23 07:00 Levothyroxine [Synthroid] 25 mcg PO QDAC Subjective - Subjective Nursing Reports: Other (Lethargic, speaks minimally, cries when touched or spoken to, swallows and drinks, needs to be fed.) Objective Vital Signs: Vital Signs - 24 hr 10/28/23 10/28/23 10/29/23 20:54 23:47 05:00 Temperature 36.7 C 37.4 C 38.0 C H Heart Rate [ 112 H 117 H 93 Brachial] Respiratory 20 20 20 Rate Blood Pressure 142/86 H 181/94 H 132/53 H [Right Brachial artery] O2 Saturation 93 95 97 10/29/23 10/29/23 10/29/23 07:50 11:28 15:43 Temperature 36.4 C L 37 C 38.8 C H Heart Rate [ 105 H 112 H 108 H Brachial] Respiratory 20 22 20 Rate Blood Pressure 155/70 H 160/77 H 175/86 H [Right Brachial artery] O2 Saturation 97 95 94 Oxygen O2 Source Room air I&O (Last 24 Hrs): Intake and Output Totals x24h 10/27/23 10/28/23 10/29/23 23:59 23:59 23:59 Intake Total 1120 470 Output Total 425 800 450 Balance 695 -330 -450 General: Other (Lethargic) HEENT: Mucous membr. moist/pink Neck: Supple Neuro: Other (Lethargic, R arm and leg have decreased mobility and decreased sensation than L arm and leg, able to swallow, cries when spoken to or touched, speaks 2-word answers) Cardiovascular: Regular rate, Other (2/6 syst murmur) Respiratory: No respiratory distress, Breath sounds nml Abdomen: Normal bowel sounds, Soft Extremities: Other (Trace pretibial and wrist edema, tender to touch everywhere) - Results Results: Laboratory Results WBC 6.5 x10^3/uL (4.8-10.8) 10/29/23 05:30 RBC 4.25 10^6/uL (4.20-5.40) 10/29/23 05:30 Hgb 11.3 g/dL (12.0-16.0) L 10/29/23 05:30 Hct 36.9 % (37.0-47.0) L 10/29/23 05:30 MCV 86.8 fL (81.0-99.0) 10/29/23 05:30 MCH 26.6 pg (27.0-31.0) L 10/29/23 05:30 MCHC 30.6 g/dL (32.0-36.0) L 10/29/23 05:30 RDW 15.3 % (12.0-15.0) H 10/29/23 05:30 Plt Count 263 10^3/uL (130-450) 10/29/23 05:30 MPV 10.9 fL (7.9-10.8) H 10/29/23 05:30 Neut # (Auto) 4.4 10^3/uL (1.5-6.6) 10/29/23 05:30 Lymph # (Auto) 1.3 10^3/uL (1.5-3.5) L 10/29/23 05:30 [place] # (Auto) 0.7 10^3/uL (0.0-1.0) 10/29/23 05:30 Eos # (Auto) 0.0 10^3/uL (0.0-0.7) 10/29/23 05:30 Baso # (Auto) 0.0 10^3/uL (0.0-0.1) 10/29/23 05:30 Absolute Nucleated RBC 0.00 x10^3/uL 10/29/23 05:30 Nucleated RBC % 0.0 /100WBC 10/29/23 05:30 VBG pH 7.306 (7.31-7.41) L 10/29/23 05:30 VBG pCO2 32.3 mmHg (41-51) L 10/26/23 06:12 VBG pO2 48.4 mmHg (25-47) H 10/26/23 06:12 VBG HCO3 14.2 mmol/L (23-28) L 10/26/23 06:12 VBG Total CO2 15.2 mmol/L (24-29) L 10/26/23 06:12 VBG O2 Saturation 86.6 % (60-80) H 10/26/23 06:12 VBG Base Excess -11.7 mmol/L (-2 - +2) L 10/26/23 06:12 Ionized Calcium 1.09 mmol/L (1.15-1.33) L 10/29/23 05:30 Sodium 139 mmol/L (135-145) 10/29/23 05:30 Potassium 3.6 mmol/L (3.5-4.5) 10/29/23 05:30 Chloride 105 mmol/L (101-111) 10/29/23 05:30 Carbon Dioxide 26 mmol/L (21-32) 10/29/23 05:30 Anion Gap 8.0 (6-13) 10/29/23 05:30 BUN 14 mg/dL (6-20) 10/29/23 05:30 Creatinine 0.8 mg/dL (0.6-1.3) 10/29/23 05:30 Estimated GFR (MDRD) 70 (>89) L 10/29/23 05:30 Glucose 175 mg/dL (74-104) H 10/29/23 05:30 POC Whole Bld Glucose 250 mg/dL (70 - 100) H 10/29/23 11:19 Estimat Average Glucose 232 mg/dL (70-100) H 10/27/23 04:29 Hemoglobin A1c % 9.7 % (4.27-6.07) H 10/27/23 04:29 Calcium 8.7 mg/dL (8.5-10.3) 10/29/23 05:30 Phosphorus 4.3 mg/dL (2.5-5.0) 10/29/23 05:30 Magnesium 1.7 mg/dL (1.7-2.3) 10/29/23 05:30 Total Bilirubin 0.3 mg/dL (0.2-1.0) 10/25/23 05:21 AST 10 IU/L (10-42) 10/25/23 05:21 ALT 9 IU/L (10-60) L 10/25/23 05:21 Alkaline Phosphatase 60 IU/L (42-121) 10/25/23 05:21 Troponin I High Sens 4.9 ng/L (2.3-14.8) 10/25/23 11:15 Total Protein 7.1 g/dL (6.4-8.9) 10/25/23 05:21 Albumin 4.5 g/dL (3.2-5.5) 10/25/23 05:21 Globulin 2.6 g/dL (2.1-4.2) 10/25/23 05:21 Albumin/Globulin Ratio 1.7 (1.0-2.2) 10/25/23 05:21 Lipase < 10 U/L (11-82) L 10/25/23 05:21 Urine Color LIGHT YELLOW 10/25/23 16:40 Urine Clarity HAZY (CLEAR) 10/25/23 16:40 Urine pH 5.5 PH (5.0-7.5) 10/25/23 16:40 Ur Specific [place] >=1.030 (1.002-1.030) H 10/25/23 16:40 Urine Protein TRACE mg/dL (NEGATIVE) 10/25/23 16:40 Urine Glucose (UA) 500 mg/dL (NEGATIVE) H 10/25/23 16:40 Urine Ketones >=80 mg/dL (NEGATIVE) H 10/25/23 16:40 Urine Occult Blood TRACE-INTA (NEGATIVE) 10/25/23 16:40 Urine Nitrite NEGATIVE (NEGATIVE) 10/25/23 16:40 Urine Bilirubin NEGATIVE (NEGATIVE) 10/25/23 16:40 Urine Urobilinogen 0.2 (NORMAL) E.U./dL (NORMAL) 10/25/23 16:40 Ur Leukocyte Esterase TRACE (NEGATIVE) H 10/25/23 16:40 Urine RBC 0-5 /HPF (0-5) 10/25/23 16:40 Urine WBC 11-25 /HPF (0-5) H 10/25/23 16:40 Ur Squamous Epith Cells RARE Squamous (<= Few) 10/25/23 16:40 Urine Bacteria Few /HPF (None Seen) 10/25/23 16:40 Urine Yeast PRESENT 10/25/23 16:40 Ur Microscopic Review INDICATED 10/25/23 16:40 Urine Culture Comments INDICATED 10/25/23 16:40 Nasal Adenovirus (PCR) NOT DETECTED 10/25/23 11:49 Nasal B. parapertussis DNA (PCR) NOT DETECTED 10/25/23 11:49 Nasal Coronavir 229E PCR NOT DETECTED 10/25/23 11:49 Nasal Coronavir HKU1 PCR NOT DETECTED 10/25/23 11:49 Nasal Coronavir NL63 PCR NOT DETECTED 10/25/23 11:49 Nasal Coronavir OC43 PCR NOT DETECTED 10/25/23 11:49 Nasal Enterovir/Rhinovir PCR NOT DETECTED 10/25/23 11:49 Nasal Influenza B PCR NOT DETECTED 10/25/23 11:49 Nasal Influenza A PCR NOT DETECTED 10/25/23 11:49 Nasal Parainfluen 1 PCR NOT DETECTED 10/25/23 11:49 Nasal Parainfluen 2 PCR NOT DETECTED 10/25/23 11:49 Nasal Parainfluen 3 PCR NOT DETECTED 10/25/23 11:49 Nasal Parainfluen 4 PCR NOT DETECTED 10/25/23 11:49 Nasal RSV (PCR) NOT DETECTED 10/25/23 11:49 Nasal Screen MRSA (PCR) NEGATIVE (NEGATIVE) 10/25/23 14:00 Nasal B.pertussis DNA PCR NOT DETECTED 10/25/23 11:49 Nasal C.pneumoniae (PCR) NOT DETECTED 10/25/23 11:49 David Human Metapneumo PCR NOT DETECTED 10/25/23 11:49 Nasal M.pneumoniae (PCR) NOT DETECTED 10/25/23 11:49 Nasal SARS-CoV-2 (PCR) NOT DETECTED 10/25/23 11:49 Urine Opiates Screen NEGATIVE (NEGATIVE) 10/25/23 05:58 Ur Buprenorphine Scrn NEGATIVE (NEGATIVE) 10/25/23 05:58 Ur Oxycodone Screen NEGATIVE (NEGATIVE) 10/25/23 05:58 Urine Methadone Screen NEGATIVE (NEGATIVE) 10/25/23 05:58 Ur Barbiturates Screen NEGATIVE (NEGATIVE) 10/25/23 05:58 Ur Tricyclics Screen NEGATIVE (NEGATIVE) 10/25/23 05:58 Ur Phencyclidine Scrn NEGATIVE (NEGATIVE) 10/25/23 05:58 Ur Amphetamine Screen NEGATIVE (NEGATIVE) 10/25/23 05:58 U Methamphetamines Scrn NEGATIVE (NEGATIVE) 10/25/23 05:58 U Benzodiazepines Scrn POSITIVE (NEGATIVE) H 10/25/23 05:58 Urine Cocaine Screen NEGATIVE (NEGATIVE) 10/25/23 05:58 U Cannabinoids Screen NEGATIVE (NEGATIVE) 10/25/23 05:58 Ur Drug Screen Comment CUTOFF CONC BELOW: 10/25/23 05:58 Ethyl Alcohol < 10.0 mg/dL 10/25/23 05:21 Serum Ketones SMALL (NEGATIVE) H 10/26/23 07:30
[2023-10-30 05:59] LABS: BASOPHILS % (AUTO) 0.4 %; HCT - HEMATOCRIT 33.1 % (37.0-47.0); HGB - HEMOGLOBIN 10.3 g/dL (12.0-16.0); LYMPHOCYTES # (AUTO) 1.1 10^3/uL (1.5-3.5); LYMPHOCYTES % (AUTO) 20.4 %; MEAN CORPUSCULAR HEMOGLOBIN 26.8 pg (27.0-31.0); MEAN CORPUSCULAR HGB CONC 31.1 g/dL (32.0-36.0); MEAN PLATELET VOLUME 10.8 fL (7.9-10.8); MONOCYTES # (AUTO) 0.7 10^3/uL (0.0-1.0); MONOCYTES % (AUTO) 12.2 %; NEUTROPHILS # (AUTO) 3.7 10^3/uL (1.5-6.6); NEUTROPHILS % (AUTO) 66.6 %; PLT - PLATELET COUNT 234 10^3/uL (130-450); RED BLOOD COUNT 3.85 10^6/uL (4.20-5.40); RED CELL DISTRIBUTION WIDTH 14.8 % (12.0-15.0); WHITE BLOOD COUNT 5.5 x10^3/uL (4.8-10.8)
[2023-10-30] MEDS: LEVOTHYROXINE 25 MCG TABLET PO SCH (06:13)
[2023-10-30 06:18] LABS: CALCIUM 8.4 mg/dL (8.5-10.3); CREATININE 0.6 mg/dL (0.6-1.3); MAGNESIUM 1.4 mg/dL (1.7-2.3); PHOSPHORUS 3.7 mg/dL (2.5-5.0); POTASSIUM 3.7 mmol/L (3.5-4.5)
[2023-10-30] MEDS: INSULIN LISPRO 300 UNIT/3 ML PEN SUBQ SCH ×2 (08:57→08:58)
[2023-10-30] MEDS: INSULIN GLARGINE-YFGN 300 UNIT/3 ML PEN SUBQ SCH (08:58)
[2023-10-30] MEDS ORDERED: INSULIN GLARGINE-YFGN 300 UNIT/3 ML PEN SUBQ SCH (09:00)
--- NOTE | 2023-10-30 11:38 | PROVIDER PROGRESS NOTE ---
Assessment/Plan - Problem List (1) Fever Assessment/Plan: At midday today she spiked a fever of 38.2. She has no worsening of her cough and is actually more alert and interactive today Plan: She just had a chest x-ray yesterday therefore I will not repeat that. Obtain blood cultures x 2, order sputum culture and a UA The UA came back showing many bacteria and many white blood cells and nitrates therefore she has not undertreated UTI, as the most likely cause of the fever (2) Altered mental status Assessment/Plan: IMPROVED She is sleepy, minimally communicative and when touched or spoken to, she starts crying tears and screams when crying. Unclear if her AMS presentation was due to DKA, UTI, alcohol use with withdrawal, psychiatric etiology or from old strokes (seen on head CT). Most likely multifactorial. 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 Today RN noticed that she is more flaccid on the right side. Today RN spoke to Joan the daughter to obtain consent for a brain MRI. Joan told us that the patient responds with crying tears and screaming ever since her second stroke. Joan says that the right-sided weakness and somnolence is new because her mother was able to use a walker in the past. There have been 2 recent falls and the patient normally has to climb stairs to get to her bedroom which, the daughter is afraid, she will be no longer able to do. Despite daughter telling admitting Hospitalist that pt's Code status is DNR, the orders state Full Code. Today daughter told pt's RN that the most recent POLST was done 4 mos ago at a rehab facility in [place]. Today ST did a swalow eval and she is able to take a soft mechanical diet and thin liquids Plan: Diet changed to soft mechanical with thin liquids Continue home Venlafaxine (3) UTI (urinary tract infection) Impression: Leukocytosis at time of admission may have been from demargination from DKA or from her infection. She was able to communicate that she has pain with urination and back pain. Urinalysis showed high specific gravity, leukocyte esterase and WBCs in urine. Urine culture only grew yeast. We switched therapy 10/26 from levofloxacin to fluconazole 200 mg orally and planning that for 2 weeks. On 10/27 her QT interval was lengthened, fluconazole is the only medication concerning for this. We ordered an EKG, was done on 10/27/23, which I interpreted: Normal sinus rhythm, rate 80, early R/S transition consistent with cor pulmonale. No prior EKG available for comparison. Plan: Because the new U/A today indicated many bacteria, I will start her on empiric Cefepime Cont Fluconazole 200 mg PO qd (4) Alcohol use Impression: Daughter stated she drinks 16 oz of vodka daily. Last drink was 10/23/23 per daughter, however unable to verify this with patient. Her CIWA has been scoring 8 today. Toxicology screen upon admission was also positive for benzodiazepines. Plan: Cont CIWA protocol, and to give iv Ativan if score >8 Supplemental thiamine, multivitamin ordered (5) DM, type 2 Poorly controlled DM with an A1c of 9.7. Estimated average glucose is 232. We learned she was not picking up her insulin regularly. Aslo, her alcohol abuse is adding to elevated serum glu levels Plan: Cont ling acting insulin, cont sliding scale with prn SSI, cancel mealtime Insulin Cont fingerstick checks, DM diet and hypoglycemia protocol (6) Aortic stenosis Impression: She has a systolic murmur best heard at upper sternal border. An Echo was done and confirmed , mild in degree Plan: She will need follow up with Cardiology (7) Electrolyte abnornality Impression: All labs were reviewed and she again has a low potassium and low magnesium today. I suspect this is from poor oral intake in a patient with alcohol abuse history Plan: Replace K and mag Follow BMP and Mg daily (8) DKA, type 2 Impression: RESOLVED Most likely etiology is insulin noncompliance as it seems she is unable to package pick up medications consistently. Per our pharmacy, she is on lantus and humalog, however this was last filled at the pharmacy in July 2023 (4 mos ago). Also possibly her UTI or alcohol abuse, SGLT-2 inhibitors, could be triggering DKA. With resolution of acidosis, her Insulin drip was stopped on 10/26 and she was transferred out of ICU yesterday 10/27 Plan: Resume home insulin Cont fingerstick checks, sliding scale Insulin coverage, DM diet and hypoglycemia protocol - Current Meds Current Meds: Current Medications Generic Name Dose Route Start Last Admin Trade Name Freq PRN Reason Stop Dose Admin Acetaminophen 650 mg 10/25/23 12:21 10/30/23 01:00 Acetaminophen 325 Mg Tablet PO 650 mg Q4HR PRN Administration Pain 1 to 4, or Fever Enoxaparin Sodium 40 mg 10/26/23 09:00 10/30/23 08:59 Enoxaparin 40 Mg/0.4 Ml Syringe SUBQ 40 mg DAILY CURTIS Administration Insulin Glargine-yfgn 30 unit 10/30/23 09:00 10/30/23 08:58 Insulin Glargine-Yfgn 300 Unit/3 Ml Pen SUBQ 30 unit DAILY CURTIS Administration Insulin Human Lispro 1 - 9 unit 10/30/23 08:00 10/30/23 08:57 Insulin Lispro 300 Unit/3 Ml Pen SUBQ 3 unit 0800,1200,1700,2100 CURTIS Administration Protocol Insulin Human Lispro 3 unit 10/30/23 08:50 10/30/23 08:58 Insulin Lispro 300 Unit/3 Ml Pen SUBQ 3 unit TIDWM CURTIS Administration Protocol Levothyroxine Sodium 25 mcg 10/30/23 07:00 10/30/23 06:13 Levothyroxine 25 Mcg Tablet PO 25 mcg QDAC CURTIS Administration Lorazepam 1 mg 10/25/23 18:44 10/27/23 18:00 Lorazepam 2 Mg/Ml Vial IVP 1 mg Q30M PRN Administration CIWA >8 Protocol Oxycodone HCl 5 mg 10/25/23 12:21 10/28/23 16:16 Oxycodone 5 Mg Tablet PO 5 mg Q4HR PRN Administration Pain 5 to 7 Pantoprazole Sodium 40 mg 10/26/23 07:00 10/30/23 06:13 Pantoprazole 40 Mg Tablet PO 40 mg QDAC CURTIS Administration Polyethylene Glycol 17 gm 10/27/23 09:00 10/30/23 09:00 Polyethylene Glycol 3350 17 Gm Packet PO 17 gm DAILY CURTIS Administration Potassium Chloride 20 meq 10/28/23 10:16 10/30/23 08:59 Potassium Chloride 10 Meq Capsule PO 20 meq DAILYWM CURTIS Administration Multivit/Folic Acid/Iron 1 tab 10/26/23 09:00 10/30/23 09:00 Vitamin Tablet PO 1 tab DAILY CURTIS Administration Sodium Chloride 10 ml 10/25/23 17:00 10/30/23 09:00 Sodium Chloride Flush 0.9% 10 Ml Syringe IVP 10 ml 0100,0900,1700 CURTIS Administration Sodium Chloride 10 ml 10/25/23 12:21 10/27/23 23:49 Sodium Chloride Flush 0.9% 10 Ml Syringe IVP 10 ml PRN PRN Administration NEEDED PER PROVIDER ORDERS Thiamine HCl 100 mg 10/26/23 09:00 10/30/23 09:00 Thiamine 100 Mg Tablet PO 100 mg DAILY CURTIS Administration Venlafaxine HCl 75 mg 10/29/23 12:00 10/30/23 09:00 Venlafaxine Er 75 Mg Capsule PO 75 mg BID CURTIS Administration - Lab Result Fish Bone Diagrams: 10/30/23 05:45 10/30/23 05:45 - Additional Planning My Orders: My Active Orders 10/29/23 11:44 RN MRI Screening [RC] .ONCE 10/29/23 12:00 Venlafaxine ER [Effexor ER] 75 mg PO BID 10/29/23 21:14 Zinc Oxide 20% Oint [Zinc Oxide] 1 applic TOP PRN PRN 10/30/23 CUL, RESPIRATORY [RM] Stat CULTURE, BLOOD #1 [RM] Stat CULTURE, BLOOD #2 [RM] Stat RESPIRATORY PCR PANEL Stat 10/30/23 07:00 Levothyroxine [Synthroid] 25 mcg PO QDAC 10/30/23 08:00 Insulin Lispro [Humalog Kwikpen U-100] 1 - 9 unit SUBQ 0800,1200,1700,2100 10/30/23 08:50 Insulin Lispro [Humalog Kwikpen U-100] 3 unit SUBQ TIDWM 10/30/23 09:00 Insulin Glargine-Yfgn [Semglee] 30 unit SUBQ DAILY 10/30/23 11:00 Fluconazole [Diflucan] 100 mg PO ONCE 10/30/23 Lunch Soft Mechanical Diet [DIET] 10/30/23 11:36 UA w/ MICROSCOPIC, CULT IF [URIN] Stat Subjective - Subjective Nursing Reports: Other (Has eye contact, is swallowing and eating comfortably. Less crying with tears today.) Objective Vital Signs: Vital Signs - 24 hr 10/29/23 10/29/23 10/29/23 15:43 17:17 18:02 Temperature 38.8 C H 37.0 C 37.0 C Heart Rate [ 108 H 100 Brachial] Respiratory 20 Rate Blood Pressure 124/48 L [Left Brachial artery] Blood Pressure 175/86 H [Right Brachial artery] O2 Saturation 94 94 10/29/23 10/29/23 10/30/23 20:12 23:32 02:18 Temperature 37.2 C 38.7 C H 37.5 C Heart Rate [ 91 92 Brachial] Respiratory 20 20 Rate Blood Pressure [Left Brachial artery] Blood Pressure 132/57 H 165/76 H [Right Brachial artery] O2 Saturation 95 92 10/30/23 10/30/23 05:10 08:22 Temperature 37.7 C 37.7 C Heart Rate [ 91 94 Brachial] Respiratory 20 20 Rate Blood Pressure [Left Brachial artery] Blood Pressure 133/60 H 117/65 [Right Brachial artery] O2 Saturation 94 94 Oxygen O2 Source Room air I&O (Last 24 Hrs): Intake and Output Totals x24h 10/28/23 10/29/23 10/30/23 23:59 23:59 23:59 Intake Total 470 637 900 Output Total 800 650 800 Balance -330 -13 100 General: Alert, Other (Lethargic, cries with tears) HEENT: EOMI, Mucous membr. moist/pink Neck: Supple Neuro: Alert (Has eye contact, is swallowing and eating comfortably. Less crying with tears today.) Cardiovascular: Regular rate Respiratory: No respiratory distress Abdomen: Soft Extremities: No clubbing, No edema - Results Results: Laboratory Results WBC 5.5 x10^3/uL (4.8-10.8) 10/30/23 05:45 RBC 3.85 10^6/uL (4.20-5.40) L 10/30/23 05:45 Hgb 10.3 g/dL (12.0-16.0) L 10/30/23 05:45 Hct 33.1 % (37.0-47.0) L 10/30/23 05:45 MCV 86.0 fL (81.0-99.0) 10/30/23 05:45 MCH 26.8 pg (27.0-31.0) L 10/30/23 05:45 MCHC 31.1 g/dL (32.0-36.0) L 10/30/23 05:45 RDW 14.8 % (12.0-15.0) 10/30/23 05:45 Plt Count 234 10^3/uL (130-450) 10/30/23 05:45 MPV 10.8 fL (7.9-10.8) 10/30/23 05:45 Neut # (Auto) 3.7 10^3/uL (1.5-6.6) 10/30/23 05:45 Lymph # (Auto) 1.1 10^3/uL (1.5-3.5) L 10/30/23 05:45 [place]ster # (Auto) 0.7 10^3/uL (0.0-1.0) 10/30/23 05:45 Eos # (Auto) 0.0 10^3/uL (0.0-0.7) 10/30/23 05:45 Baso # (Auto) 0.0 10^3/uL (0.0-0.1) 10/30/23 05:45 Absolute Nucleated RBC 0.00 x10^3/uL 10/30/23 05:45 Nucleated RBC % 0.0 /100WBC 10/30/23 05:45 VBG pH 7.306 (7.31-7.41) L 10/29/23 05:30 VBG pCO2 32.3 mmHg (41-51) L 10/26/23 06:12 VBG pO2 48.4 mmHg (25-47) H 10/26/23 06:12 VBG HCO3 14.2 mmol/L (23-28) L 10/26/23 06:12 VBG Total CO2 15.2 mmol/L (24-29) L 10/26/23 06:12 VBG O2 Saturation 86.6 % (60-80) H 10/26/23 06:12 VBG Base Excess -11.7 mmol/L (-2 - +2) L 10/26/23 06:12 Ionized Calcium 1.09 mmol/L (1.15-1.33) L 10/29/23 05:30 Sodium 136 mmol/L (135-145) 10/30/23 05:45 Potassium 3.7 mmol/L (3.5-4.5) 10/30/23 05:45 Chloride 100 mmol/L (101-111) L 10/30/23 05:45 Carbon Dioxide 28 mmol/L (21-32) 10/30/23 05:45 Anion Gap 8.0 (6-13) 10/30/23 05:45 BUN 16 mg/dL (6-20) 10/30/23 05:45 Creatinine 0.6 mg/dL (0.6-1.3) 10/30/23 05:45 Estimated GFR (MDRD) 97 (>89) 10/30/23 05:45 Glucose 228 mg/dL (74-104) H 10/30/23 05:45 POC Whole Bld Glucose 305 mg/dL (70 - 100) H 10/30/23 11:16 Estimat Average Glucose 232 mg/dL (70-100) H 10/27/23 04:29 Hemoglobin A1c % 9.7 % (4.27-6.07) H 10/27/23 04:29 Calcium 8.4 mg/dL (8.5-10.3) L 10/30/23 05:45 Phosphorus 3.7 mg/dL (2.5-5.0) 10/30/23 05:45 Magnesium 1.4 mg/dL (1.7-2.3) L 10/30/23 05:45 Total Bilirubin 0.3 mg/dL (0.2-1.0) 10/25/23 05:21 AST 10 IU/L (10-42) 10/25/23 05:21 ALT 9 IU/L (10-60) L 10/25/23 05:21 Alkaline Phosphatase 60 IU/L (42-121) 10/25/23 05:21 Troponin I High Sens 4.9 ng/L (2.3-14.8) 10/25/23 11:15 Total Protein 7.1 g/dL (6.4-8.9) 10/25/23 05:21 Albumin 4.5 g/dL (3.2-5.5) 10/25/23 05:21 Globulin 2.6 g/dL (2.1-4.2) 10/25/23 05:21 Albumin/Globulin Ratio 1.7 (1.0-2.2) 10/25/23 05:21 Lipase < 10 U/L (11-82) L 10/25/23 05:21 Urine Color LIGHT YELLOW 10/25/23 16:40 Urine Clarity HAZY (CLEAR) 10/25/23 16:40 Urine pH 5.5 PH (5.0-7.5) 10/25/23 16:40 Ur Specific [place] >=1.030 (1.002-1.030) H 10/25/23 16:40 Urine Protein TRACE mg/dL (NEGATIVE) 10/25/23 16:40 Urine Glucose (UA) 500 mg/dL (NEGATIVE) H 10/25/23 16:40 Urine Ketones >=80 mg/dL (NEGATIVE) H 10/25/23 16:40 Urine Occult Blood TRACE-INTA (NEGATIVE) 10/25/23 16:40 Urine Nitrite NEGATIVE (NEGATIVE) 10/25/23 16:40 Urine Bilirubin NEGATIVE (NEGATIVE) 10/25/23 16:40 Urine Urobilinogen 0.2 (NORMAL) E.U./dL (NORMAL) 10/25/23 16:40 Ur Leukocyte Esterase TRACE (NEGATIVE) H 10/25/23 16:40 Urine RBC 0-5 /HPF (0-5) 10/25/23 16:40 Urine WBC 11-25 /HPF (0-5) H 10/25/23 16:40 Ur Squamous Epith Cells RARE Squamous (<= Few) 10/25/23 16:40 Urine Bacteria Few /HPF (None Seen) 10/25/23 16:40 Urine Yeast PRESENT 10/25/23 16:40 Ur Microscopic Review INDICATED 10/25/23 16:40 Urine Culture Comments INDICATED 10/25/23 16:40 Nasal Adenovirus (PCR) NOT DETECTED 10/25/23 11:49 Nasal B. parapertussis DNA (PCR) NOT DETECTED 10/25/23 11:49 Nasal Coronavir 229E PCR NOT DETECTED 10/25/23 11:49 Nasal Coronavir HKU1 PCR NOT DETECTED 10/25/23 11:49 Nasal Coronavir NL63 PCR NOT DETECTED 10/25/23 11:49 Nasal Coronavir OC43 PCR NOT DETECTED 10/25/23 11:49 Nasal Enterovir/Rhinovir PCR NOT DETECTED 10/25/23 11:49 Nasal Influenza B PCR NOT DETECTED 10/25/23 11:49 Nasal Influenza A PCR NOT DETECTED 10/25/23 11:49 Nasal Parainfluen 1 PCR NOT DETECTED 10/25/23 11:49 Nasal Parainfluen 2 PCR NOT DETECTED 10/25/23 11:49 Nasal Parainfluen 3 PCR NOT DETECTED 10/25/23 11:49 Nasal Parainfluen 4 PCR NOT DETECTED 10/25/23 11:49 Nasal RSV (PCR) NOT DETECTED 10/25/23 11:49 Nasal Screen MRSA (PCR) NEGATIVE (NEGATIVE) 10/25/23 14:00 Nasal B.pertussis DNA PCR NOT DETECTED 10/25/23 11:49 Nasal C.pneumoniae (PCR) NOT DETECTED 10/25/23 11:49 David Human Metapneumo PCR NOT DETECTED 10/25/23 11:49 Nasal M.pneumoniae (PCR) NOT DETECTED 10/25/23 11:49 Nasal SARS-CoV-2 (PCR) NOT DETECTED 10/25/23 11:49 Urine Opiates Screen NEGATIVE (NEGATIVE) 10/25/23 05:58 Ur Buprenorphine Scrn NEGATIVE (NEGATIVE) 10/25/23 05:58 Ur Oxycodone Screen NEGATIVE (NEGATIVE) 10/25/23 05:58 Urine Methadone Screen NEGATIVE (NEGATIVE) 10/25/23 05:58 Ur Barbiturates Screen NEGATIVE (NEGATIVE) 10/25/23 05:58 Ur Tricyclics Screen NEGATIVE (NEGATIVE) 10/25/23 05:58 Ur Phencyclidine Scrn NEGATIVE (NEGATIVE) 10/25/23 05:58 Ur Amphetamine Screen NEGATIVE (NEGATIVE) 10/25/23 05:58 U Methamphetamines Scrn NEGATIVE (NEGATIVE) 10/25/23 05:58 U Benzodiazepines Scrn POSITIVE (NEGATIVE) H 10/25/23 05:58 Urine Cocaine Screen NEGATIVE (NEGATIVE) 10/25/23 05:58 U Cannabinoids Screen NEGATIVE (NEGATIVE) 10/25/23 05:58 Ur Drug Screen Comment CUTOFF CONC BELOW: 10/25/23 05:58 Ethyl Alcohol < 10.0 mg/dL 10/25/23 05:21 Serum Ketones SMALL (NEGATIVE) H 10/26/23 07:30
[2023-10-30] MEDS: FLUCONAZOLE 100 MG TABLET PO SCH (12:28)
[2023-10-30 13:54] LABS: B. PARAPERTUSSIS- RESP PCR PAN NOT DETECTED; B. PERTUSSIS- RESP PCR PANEL NOT DETECTED; C. PNEUMONIAE- RESP PCR PANEL NOT DETECTED; CORONAVIRUS 229E-RESP PCR NOT DETECTED; CORONAVIRUS HKU1-RESP PCR NOT DETECTED; CORONAVIRUS NL63-RESP PCR NOT DETECTED; CORONAVIRUS OC43-RESP PCR NOT DETECTED; HUMAN METAPNEUMOVIRUS NOT DETECTED; INFLUENZA A H1 2009- RESP PCR DETECTED; INFLUENZA B - RESP PCR PANEL NOT DETECTED; M. PNEUMONIAE- RESP PCR PANEL NOT DETECTED; PARAINFLUENZA VIRUS 1 NOT DETECTED; PARAINFLUENZA VIRUS 2 NOT DETECTED; PARAINFLUENZA VIRUS 3 NOT DETECTED; PARAINFLUENZA VIRUS 4 NOT DETECTED; RHINOVIRUS/ENTEROVIRUS NOT DETECTED; RSV- RESP PCR PANEL NOT DETECTED; SARS-CoV-2 -RESP PCR PANEL NOT DETECTED
[2023-10-30] MEDS ORDERED: COD LIVER OIL/ZINC OXIDE 113 GM TUBE TOP PRN (15:03)
[2023-10-30 15:07] LABS: BILIRUBIN,URINE NEGATIVE (NEGATIVE); GLUCOSE, URINE (UA) >=1000 mg/dL (NEGATIVE); KETONES,URINE (UA) NEGATIVE (NEGATIVE); LEUKOCYTE ESTERASE, URINE SMALL (NEGATIVE); NITRITE,URINE NEGATIVE (NEGATIVE); OCCULT BLOOD,URINE LARGE (NEGATIVE); PH,URINE 5.5 PH (5.0-7.5); PROTEIN,URINE 30 mg/dL (NEGATIVE); UROBILINOGEN,URINE 0.2 (NORMAL) E.U./dL (NORMAL)
[2023-10-30 15:17] LABS: BACTERIA,URINE Many /HPF (None Seen); CLARITY,URINE TURBID (CLEAR); RBC,URINE TNTC /HPF (0-5); SQUAMOUS EPITHELIAL CELL,UR NONE SEEN (<= Few); WBC CLUMPS,URINE PRESENT; WBC,URINE >25 /HPF (0-5); YEAST,URINE PRESENT
[2023-10-30] MEDS: cefTRIAXone 1 GM in SODIUM CHLORIDE 0.9% MINIBAG 100 ML IV SCH (18:02)
[2023-10-30] MEDS: ZINC OXIDE 20% OINT 30 GM TUBE TOP PRN (19:30)
[2023-10-31 05:37] LABS: BASOPHILS % (AUTO) 0.6 %; EOSINOPHILS # (AUTO) 0.1 10^3/uL (0.0-0.7); HCT - HEMATOCRIT 32.7 % (37.0-47.0); HGB - HEMOGLOBIN 10.6 g/dL (12.0-16.0); LYMPHOCYTES # (AUTO) 1.3 10^3/uL (1.5-3.5); LYMPHOCYTES % (AUTO) 27.1 %; MEAN CORPUSCULAR HEMOGLOBIN 27.5 pg (27.0-31.0); MEAN CORPUSCULAR HGB CONC 32.4 g/dL (32.0-36.0); MEAN CORPUSCULAR VOLUME 84.7 fL (81.0-99.0); MEAN PLATELET VOLUME 10.7 fL (7.9-10.8); MONOCYTES # (AUTO) 0.7 10^3/uL (0.0-1.0); MONOCYTES % (AUTO) 14.8 %; NEUTROPHILS # (AUTO) 2.7 10^3/uL (1.5-6.6); NEUTROPHILS % (AUTO) 56.3 %; PLT - PLATELET COUNT 236 10^3/uL (130-450); RED BLOOD COUNT 3.86 10^6/uL (4.20-5.40); RED CELL DISTRIBUTION WIDTH 14.5 % (12.0-15.0); WHITE BLOOD COUNT 4.8 x10^3/uL (4.8-10.8)
[2023-10-31 05:56] LABS: CALCIUM 8.5 mg/dL (8.5-10.3); CREATININE 0.5 mg/dL (0.6-1.3); MAGNESIUM 1.4 mg/dL (1.7-2.3); PHOSPHORUS 3.8 mg/dL (2.5-5.0); POTASSIUM 3.3 mmol/L (3.5-4.5)
[2023-10-31] MEDS: FLUCONAZOLE 100 MG TABLET PO SCH (08:15)
[2023-10-31] MEDS ORDERED: LACTOBACILLUS RHAMNOSUS GG CAPSULE PO SCH (09:00)
[2023-10-31] MEDS: MAGNESIUM SULFATE 2 GRAM 2 GM/50 ML BAG IV ONE (10:39)
[2023-10-31] MEDS: LACTOBACILLUS RHAMNOSUS GG CAPSULE PO SCH (11:48)
[2023-10-31] MEDS: POTASSIUM CHLOR 10 MEQ/100 ML 10 MEQ/100 ML BAG IV SCH (11:50)
--- NOTE | 2023-10-31 11:51 | PROVIDER PROGRESS NOTE ---
Assessment/Plan - Problem List (1) Diarrhea Assessment/Plan: The patient has had 7 liquid BMs in 24 hours Plan: Will check a C. diff>>> it came back neg Will give imodium and Metamucil (2) Fall during current hospitalization Impression: Today pt was alert enough to work with PT and OT. She stood and walked to chair and was left sitting in chair w/ chair alarm on. Our SW heard her yelling for help, entered room and found her between bed and chair, supporting herself just above the floor with elbows and forearms, one arm on chair rail and other arm on bed mattress. She was helped down to the ground and I was contacted. The chair alarm had not alarmed, it was found to be defective. I came in and examined her: she was c/o pain of buttocks, no other spot. She had not fallen and had not hit her head. She was neurologically intact. Plan: Xrays of pelvis and B hips ordered>> these were neg for trauma. A new bed alarm was applied. (3) UTI (urinary tract infection) Impression: Leukocytosis at time of admission may have been from demargination from DKA or from her infection. She was able to communicate that she has pain with urination and back pain. Urinalysis was abn but Urine culture only grew yeast. We switched therapy 10/26 from levofloxacin to fluconazole 200 mg orally and planning that for 2 weeks. QTc was checked. On 10/30 she spiked a fever of 38.2 C. We obtained blood cultures x 2, order sputum culture and a UA. The UA came back showing many bacteria and many white blood cells and nitrates therefore she has an undertreated UTI, as the most likely cause of the fever Plan: Because the new U/A indicated many bacteria, I will cont her on empiric Ceftriaxone Cont Fluconazole 200 mg PO qd (4) Altered mental status Assessment/Plan: IMPROVED She was sleepy, minimally communicative and when touched or spoken to, she started crying tears and screams when crying. She was like that for ~5 days Unclear if her AMS presentation was due to DKA, UTI, alcohol use with withdrawal, psychiatric etiology or from old strokes (seen on head CT). Most likely multifactorial. 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 On 10/30 RN noticed that she is more flaccid on the right side. When RN spoke to Joan the daughter to obtain consent for a brain MRI. Joan told us that the patient responds with crying tears and screaming ever since her second stroke. Joan says that the right-sided weakness and somnolence is new because her mother was able to use a walker in the past. There have been 2 recent falls and the patient normally has to climb stairs to get to her bedroom which, the daughter is afraid, she will be no longer able to do. Despite daughter telling admitting Hospitalist that pt's Code status is DNR, the orders state Full Code. Daughter told pt's RN that the most recent POLST was done 4 mos ago at a rehab facility in [place]. ST did a swalow eval and she is able to take a soft mechanical diet and thin liquids Plan: Diet changed to soft mechanical with thin liquids Continue home Venlafaxine (5) Alcohol use Impression: Daughter stated the pt drinks 16 oz of vodka daily. Last drink was 10/23/23 per daughter, however unable to verify this with patient. Her CIWA has been scoring 8 today. Toxicology screen upon admission was also positive for benzodiazepines. Plan: Cont CIWA protocol, and to give iv Ativan if score >8 Supplemental thiamine, multivitamin ordered (6) DM, type 2 Poorly controlled DM with an A1c of 9.7. Estimated average glucose is 232. We learned she was not picking up her insulin regularly. Aslo, her alcohol abuse is adding to elevated serum glu levels Plan: Cont ling acting insulin, cont sliding scale with prn SSI, cancel mealtime Insulin Cont fingerstick checks, DM diet and hypoglycemia protocol (7) Aortic stenosis Impression: She has a systolic murmur best heard at upper sternal border. An Echo was done and confirmed , mild in degree Plan: She will need follow up with Cardiology (8) Electrolyte abnornality Impression: All labs were reviewed and she again has a low potassium and low magnesium today. 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 Per our pharmacy, she is on lantus and humalog, however this was last filled at the pharmacy in July 2023 (4 mos ago). Also possibly her UTI or alcohol abuse, SGLT-2 inhibitors, could be triggering DKA. With resolution of acidosis, her Insulin drip was stopped on 10/26 and she was transferred out of ICU yesterday 10/27 Plan: Resume home insulin Cont fingerstick checks, sliding scale Insulin coverage, DM diet and hypoglycemia protocol - Current Meds Current Meds: Current Medications Generic Name Dose Route Start Last Admin Trade Name Freq PRN Reason Stop Dose Admin Acetaminophen 650 mg 10/25/23 12:21 10/30/23 19:30 Acetaminophen 325 Mg Tablet PO 650 mg Q4HR PRN Administration Pain 1 to 4, or Fever Enoxaparin Sodium 40 mg 10/26/23 09:00 10/31/23 08:14 Enoxaparin 40 Mg/0.4 Ml Syringe SUBQ 40 mg DAILY CURTIS Administration Fluconazole 200 mg 10/31/23 09:00 10/31/23 08:15 Fluconazole 100 Mg Tablet PO 200 mg DAILY CURTIS Administration Ceftriaxone Sodium 1 gm/ 100 mls @ 200 mls/hr 10/30/23 17:35 10/31/23 08:45 Sodium Chloride IV Infused DAILY CURTIS Infusion Insulin Glargine-yfgn 30 unit 10/30/23 09:00 10/31/23 08:12 Insulin Glargine-Yfgn 300 Unit/3 Ml Pen SUBQ 30 unit DAILY CURTIS Administration Insulin Human Lispro 1 - 9 unit 10/30/23 08:00 10/31/23 08:13 Insulin Lispro 300 Unit/3 Ml Pen SUBQ 3 unit 0800,1200,1700,2100 CURTIS Administration Protocol Insulin Human Lispro 3 unit 10/30/23 08:50 10/31/23 08:13 Insulin Lispro 300 Unit/3 Ml Pen SUBQ 3 unit TIDWM CURTIS Administration Protocol Levothyroxine Sodium 25 mcg 10/30/23 07:00 10/31/23 06:10 Levothyroxine 25 Mcg Tablet PO 25 mcg QDAC CURTIS Administration Lorazepam 1 mg 10/25/23 18:44 10/27/23 18:00 Lorazepam 2 Mg/Ml Vial IVP 1 mg Q30M PRN Administration CIWA >8 Protocol Multi-Ingredient Ointment 1 applic 10/29/23 21:14 10/31/23 10:39 Zinc Oxide 20% Oint 30 Gm Tube TOP 1 applic PRN PRN Administration Skin Care Oxycodone HCl 5 mg 10/25/23 12:21 10/31/23 05:19 Oxycodone 5 Mg Tablet PO 5 mg Q4HR PRN Administration Pain 5 to 7 Pantoprazole Sodium 40 mg 10/26/23 07:00 10/31/23 06:10 Pantoprazole 40 Mg Tablet PO 40 mg QDAC CURTIS Administration Polyethylene Glycol 17 gm 10/27/23 09:00 10/31/23 08:14 Polyethylene Glycol 3350 17 Gm Packet PO 17 gm DAILY CURTIS Administration Potassium Chloride 20 meq 10/28/23 10:16 10/31/23 08:15 Potassium Chloride 10 Meq Capsule PO 20 meq DAILYWM CURTIS Administration Multivit/Folic Acid/Iron 1 tab 10/26/23 09:00 10/31/23 08:15 Vitamin Tablet PO 1 tab DAILY CURTIS Administration Sodium Chloride 10 ml 10/25/23 17:00 10/31/23 08:15 Sodium Chloride Flush 0.9% 10 Ml Syringe IVP 10 ml 0100,0900,1700 CURTIS Administration Sodium Chloride 10 ml 10/25/23 12:21 10/27/23 23:49 Sodium Chloride Flush 0.9% 10 Ml Syringe IVP 10 ml PRN PRN Administration NEEDED PER PROVIDER ORDERS Thiamine HCl 100 mg 10/26/23 09:00 10/31/23 08:15 Thiamine 100 Mg Tablet PO 100 mg DAILY CURTIS Administration Venlafaxine HCl 75 mg 10/29/23 12:00 10/31/23 08:15 Venlafaxine Er 75 Mg Capsule PO 75 mg BID CURTIS Administration - Lab Result Fish Bone Diagrams: 11/01/23 04:57 11/01/23 05:00 - Additional Planning My Orders: My Active Orders 10/30/23 12:37 CULTURE, BLOOD #1 [RM] Stat CULTURE, BLOOD #2 [RM] Stat 10/30/23 14:45 CUL, URINE [RM] Stat 10/30/23 15:03 Cod Liver Oil/Zinc Oxide [Desitin] 113 gm TOP PRN PRN 10/30/23 Dinner Dysphagia - Soft and Bite Sized [DIET] 10/30/23 17:35 cefTRIAXone [Rocephin] 1 gm Sodium Chloride 0.9% Minibag [Normal Saline 0.9% Minibag] 100 ml IV DAILY 10/31/23 11:00 Potassium Chlor 10 Meq/100 ml [Potassium Chloride] 10 meq in 100 ml IV Q1H 10/31/23 12:00 Lactobacillus Rhamnosus GG [Culturelle] 1 cap PO 1200 10/31/23 21:00 Insulin Glargine-Yfgn [Semglee] 3 unit SUBQ QPM Subjective - Subjective Patient Reports: Pain (Examined during fall in her room, has pain in buttocks) Objective Vital Signs: Vital Signs - 24 hr 10/30/23 10/30/23 10/30/23 13:00 14:53 17:00 Temperature 38.3 C H 37.0 C 36.7 C Heart Rate [ 92 78 Brachial] Respiratory 20 20 Rate Blood Pressure 136/54 H 105/52 L [Right Brachial artery] O2 Saturation 91 L 92 10/30/23 10/31/23 10/31/23 21:11 00:34 05:00 Temperature 36.7 C 36.6 C 37.2 C Heart Rate [ 79 74 80 Brachial] Respiratory 18 16 18 Rate Blood Pressure 120/54 L 114/50 L 126/61 [Right Brachial artery] O2 Saturation 94 94 92 10/31/23 08:06 Temperature 36.4 C L Heart Rate [ Brachial] Respiratory 20 Rate Blood Pressure 102/49 L [Right Brachial artery] O2 Saturation 93 Oxygen O2 Source Room air I&O (Last 24 Hrs): Intake and Output Totals x24h 10/29/23 10/30/23 10/31/23 23:59 23:59 23:59 Intake Total 637 1950 220 Output Total 650 1050 50 Balance -13 900 170 General: Alert, Oriented x3, Mild distress (from pain) HEENT: Mucous membr. moist/pink Neck: Supple Neuro: Alert, Non Focal Cardiovascular: Regular rate Respiratory: No respiratory distress Abdomen: Soft, No tenderness Extremities: No clubbing, No edema - Results Results: Laboratory Results WBC 4.8 x10^3/uL (4.8-10.8) 10/31/23 05:24 RBC 3.86 10^6/uL (4.20-5.40) L 10/31/23 05:24 Hgb 10.6 g/dL (12.0-16.0) L 10/31/23 05:24 Hct 32.7 % (37.0-47.0) L 10/31/23 05:24 MCV 84.7 fL (81.0-99.0) 10/31/23 05:24 MCH 27.5 pg (27.0-31.0) 10/31/23 05:24 MCHC 32.4 g/dL (32.0-36.0) 10/31/23 05:24 RDW 14.5 % (12.0-15.0) 10/31/23 05:24 Plt Count 236 10^3/uL (130-450) 10/31/23 05:24 MPV 10.7 fL (7.9-10.8) 10/31/23 05:24 Neut # (Auto) 2.7 10^3/uL (1.5-6.6) 10/31/23 05:24 Lymph # (Auto) 1.3 10^3/uL (1.5-3.5) L 10/31/23 05:24 [place] # (Auto) 0.7 10^3/uL (0.0-1.0) 10/31/23 05:24 Eos # (Auto) 0.1 10^3/uL (0.0-0.7) 10/31/23 05:24 Baso # (Auto) 0.0 10^3/uL (0.0-0.1) 10/31/23 05:24 Absolute Nucleated RBC 0.00 x10^3/uL 10/31/23 05:24 Nucleated RBC % 0.0 /100WBC 10/31/23 05:24 VBG pH 7.306 (7.31-7.41) L 10/29/23 05:30 VBG pCO2 32.3 mmHg (41-51) L 10/26/23 06:12 VBG pO2 48.4 mmHg (25-47) H 10/26/23 06:12 VBG HCO3 14.2 mmol/L (23-28) L 10/26/23 06:12 VBG Total CO2 15.2 mmol/L (24-29) L 10/26/23 06:12 VBG O2 Saturation 86.6 % (60-80) H 10/26/23 06:12 VBG Base Excess -11.7 mmol/L (-2 - +2) L 10/26/23 06:12 Ionized Calcium 1.09 mmol/L (1.15-1.33) L 10/29/23 05:30 Sodium 132 mmol/L (135-145) L 10/31/23 05:24 Potassium 3.3 mmol/L (3.5-4.5) L 10/31/23 05:24 Chloride 97 mmol/L (101-111) L 10/31/23 05:24 Carbon Dioxide 28 mmol/L (21-32) 10/31/23 05:24 Anion Gap 7.0 (6-13) 10/31/23 05:24 BUN 14 mg/dL (6-20) 10/31/23 05:24 Creatinine 0.5 mg/dL (0.6-1.3) L 10/31/23 05:24 Estimated GFR (MDRD) 120 (>89) 10/31/23 05:24 Glucose 204 mg/dL (74-104) H 10/31/23 05:24 POC Whole Bld Glucose 219 mg/dL (70 - 100) H 10/31/23 11:17 Estimat Average Glucose 232 mg/dL (70-100) H 10/27/23 04:29 Hemoglobin A1c % 9.7 % (4.27-6.07) H 10/27/23 04:29 Calcium 8.5 mg/dL (8.5-10.3) 10/31/23 05:24 Phosphorus 3.8 mg/dL (2.5-5.0) 10/31/23 05:24 Magnesium 1.4 mg/dL (1.7-2.3) L 10/31/23 05:24 Total Bilirubin 0.3 mg/dL (0.2-1.0) 10/25/23 05:21 AST 10 IU/L (10-42) 10/25/23 05:21 ALT 9 IU/L (10-60) L 10/25/23 05:21 Alkaline Phosphatase 60 IU/L (42-121) 10/25/23 05:21 Troponin I High Sens 4.9 ng/L (2.3-14.8) 10/25/23 11:15 Total Protein 7.1 g/dL (6.4-8.9) 10/25/23 05:21 Albumin 4.5 g/dL (3.2-5.5) 10/25/23 05:21 Globulin 2.6 g/dL (2.1-4.2) 10/25/23 05:21 Albumin/Globulin Ratio 1.7 (1.0-2.2) 10/25/23 05:21 Lipase < 10 U/L (11-82) L 10/25/23 05:21 Urine Color LIGHT YELLOW 10/30/23 14:45 Urine Clarity TURBID (CLEAR) 10/30/23 14:45 Urine pH 5.5 PH (5.0-7.5) 10/30/23 14:45 Ur Specific [place] >=1.030 (1.002-1.030) H 10/30/23 14:45 Urine Protein 30 mg/dL (NEGATIVE) H 10/30/23 14:45 Urine Glucose (UA) >=1000 mg/dL (NEGATIVE) H 10/30/23 14:45 Urine Ketones NEGATIVE mg/dL (NEGATIVE) 10/30/23 14:45 Urine Occult Blood LARGE (NEGATIVE) H 10/30/23 14:45 Urine Nitrite NEGATIVE (NEGATIVE) 10/30/23 14:45 Urine Bilirubin NEGATIVE (NEGATIVE) 10/30/23 14:45 Urine Urobilinogen 0.2 (NORMAL) E.U./dL (NORMAL) 10/30/23 14:45 Ur Leukocyte Esterase SMALL (NEGATIVE) H 10/30/23 14:45 Urine RBC TNTC /HPF (0-5) H 10/30/23 14:45 Urine WBC >25 /HPF (0-5) H 10/30/23 14:45 Urine WBC Clumps PRESENT 10/30/23 14:45 Ur Squamous Epith Cells NONE SEEN (<= Few) 10/30/23 14:45 Urine Bacteria Many /HPF (None Seen) H 10/30/23 14:45 Urine Yeast PRESENT 10/30/23 14:45 Ur Microscopic Review INDICATED 10/25/23 16:40 Urine Culture Comments INDICATED 10/30/23 14:45 Nasal Adenovirus (PCR) NOT DETECTED 10/30/23 12:42 Nasal B. parapertussis DNA (PCR) NOT DETECTED 10/30/23 12:42 Nasal Coronavir 229E PCR NOT DETECTED 10/30/23 12:42 Nasal Coronavir HKU1 PCR NOT DETECTED 10/30/23 12:42 Nasal Coronavir NL63 PCR NOT DETECTED 10/30/23 12:42 Nasal Coronavir OC43 PCR NOT DETECTED 10/30/23 12:42 Nasal Enterovir/Rhinovir PCR NOT DETECTED 10/30/23 12:42 Nasal Influ A H1 2009 PCR DETECTED A 10/30/23 12:42 Nasal Influenza B PCR NOT DETECTED 10/30/23 12:42 Nasal Influenza A PCR NOT DETECTED 10/25/23 11:49 Nasal Parainfluen 1 PCR NOT DETECTED 10/30/23 12:42 Nasal Parainfluen 2 PCR NOT DETECTED 10/30/23 12:42 Nasal Parainfluen 3 PCR NOT DETECTED 10/30/23 12:42 Nasal Parainfluen 4 PCR NOT DETECTED 10/30/23 12:42 Nasal RSV (PCR) NOT DETECTED 10/30/23 12:42 Nasal Screen MRSA (PCR) NEGATIVE (NEGATIVE) 10/25/23 14:00 Nasal B.pertussis DNA PCR NOT DETECTED 10/30/23 12:42 Nasal C.pneumoniae (PCR) NOT DETECTED 10/30/23 12:42 David Human Metapneumo PCR NOT DETECTED 10/30/23 12:42 Nasal M.pneumoniae (PCR) NOT DETECTED 10/30/23 12:42 Nasal SARS-CoV-2 (PCR) NOT DETECTED 10/30/23 12:42 Urine Opiates Screen NEGATIVE (NEGATIVE) 10/25/23 05:58 Ur Buprenorphine Scrn NEGATIVE (NEGATIVE) 10/25/23 05:58 Ur Oxycodone Screen NEGATIVE (NEGATIVE) 10/25/23 05:58 Urine Methadone Screen NEGATIVE (NEGATIVE) 10/25/23 05:58 Ur Barbiturates Screen NEGATIVE (NEGATIVE) 10/25/23 05:58 Ur Tricyclics Screen NEGATIVE (NEGATIVE) 10/25/23 05:58 Ur Phencyclidine Scrn NEGATIVE (NEGATIVE) 10/25/23 05:58 Ur Amphetamine Screen NEGATIVE (NEGATIVE) 10/25/23 05:58 U Methamphetamines Scrn NEGATIVE (NEGATIVE) 10/25/23 05:58 U Benzodiazepines Scrn POSITIVE (NEGATIVE) H 10/25/23 05:58 Urine Cocaine Screen NEGATIVE (NEGATIVE) 10/25/23 05:58 U Cannabinoids Screen NEGATIVE (NEGATIVE) 10/25/23 05:58 Ur Drug Screen Comment CUTOFF CONC BELOW: 10/25/23 05:58 Ethyl Alcohol < 10.0 mg/dL 10/25/23 05:21 Serum Ketones SMALL (NEGATIVE) H 10/26/23 07:30
[2023-10-31] MEDS ORDERED: SODIUM CHLORIDE 0.9% 500 ML IV ONE (15:32)
--- NOTE | 2023-10-31 16:01 | XRAY Report ---
PROCEDURE: Hips w/Pelvis 2-3V BL INDICATIONS: Fall in hospital room onto buttocks TECHNIQUE: 2 view(s) of the hips bilaterally were acquired. COMPARISON: None. FINDINGS: Bones: No fractures or dislocations. Mild osteoarthritis at the hip joints bilaterally. This appear s slightly greater on the right than the left. No suspicious bony lesions. The visualized pelvic rin g appears intact. Soft tissues: No suspicious soft tissue calcifications or masses. IMPRESSION: No acute bony abnormality. 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 Reviewed by: Cade Phillip MD on 10/31/2023 3:59 PM PST Approved by: Cade Phillip MD on 10/31/2023 3:59 PM PST Station ID: [id number]
[2023-10-31] MEDS: ONDANSETRON ODT 4 MG TABLET TL PRN (17:21)
[2023-10-31] MEDS: INSULIN GLARGINE-YFGN 300 UNIT/3 ML PEN SUBQ SCH (21:15)
[2023-11-01 05:21] LABS: BASOPHILS % (AUTO) 0.6 %; EOSINOPHILS # (AUTO) 0.1 10^3/uL (0.0-0.7); EOSINOPHILS % (AUTO) 2.2 %; HCT - HEMATOCRIT 33.6 % (37.0-47.0); HGB - HEMOGLOBIN 10.5 g/dL (12.0-16.0); LYMPHOCYTES # (AUTO) 1.8 10^3/uL (1.5-3.5); LYMPHOCYTES % (AUTO) 38.6 %; MEAN CORPUSCULAR HEMOGLOBIN 27.5 pg (27.0-31.0); MEAN CORPUSCULAR HGB CONC 31.3 g/dL (32.0-36.0); MONOCYTES # (AUTO) 0.8 10^3/uL (0.0-1.0); MONOCYTES % (AUTO) 17.5 %; NEUTROPHILS # (AUTO) 1.9 10^3/uL (1.5-6.6); NEUTROPHILS % (AUTO) 40.9 %; PLT - PLATELET COUNT 234 10^3/uL (130-450); RED BLOOD COUNT 3.82 10^6/uL (4.20-5.40); RED CELL DISTRIBUTION WIDTH 14.5 % (12.0-15.0); WHITE BLOOD COUNT 4.6 x10^3/uL (4.8-10.8)
--- NOTE | 2023-11-01 09:09 | PROVIDER PROGRESS NOTE ---
Assessment/Plan - Problem List (1) Diarrhea Assessment/Plan: The patient has had 7 liquid BMs yesterday C. diff stool test came back neg Plan: Will giveprn Imodium and Metamucil (2) Fall during current hospitalization Impression: On 10/31 pt was alert enough to work with PT and OT. She stood and walked to chair and was left sitting in chair w/ chair alarm on. Our SW heard her yelling for help, entered room and found her between bed and chair, supporting herself just above the floor with elbows and forearms, one arm on chair rail and other arm on bed mattress. She was helped down to the ground and I was contacted. The chair alarm had not alarmed, it was found to be defective. I came in and examined her: she was c/o pain of buttocks, no other spot. She had not fallen and had not hit her head. She was neurologically intact. Xrays of pelvis and B hips ordered>> these were neg for trauma. Plan: A new bed alarm was applied. Cont with PT and OT and up with assist (3) UTI (urinary tract infection) Impression: Leukocytosis at time of admission may have been from demargination from DKA or from her infection. She was able to communicate that she has pain with urination and back pain. Urinalysis was abn but Urine culture only grew yeast. We switched therapy 10/26 from levofloxacin to fluconazole 200 mg orally and planning that for 2 weeks. QTc was checked. On 10/30 she spiked a fever of 38.2. We obtained blood cultures x 2, order sputum culture and a UA. The UA came back showing many bacteria and many white blood cells and nitrates therefore she has an undertreated UTI, as the most like ly cause of the fever. The new urine cx again showed yeast growth Plan: Because the new U/A indicated many bacteria, I started her on empiric Ceftriaxone. I plan on giving her an empiric 5 day course Cont Fluconazole 200 mg PO qd as well (4) TIA Assessment/Plan: IMPROVED For about 4 days she was sleepy, minimally communicative and when touched or spoken to, she started crying tears and screamed when crying. 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 and we suspected she was altered due to DKA, her UTI, and alcohol use with withdrawal, Then on 10/30 she had R arm and leg muscle weakness and a brain MRI was done. It did not show a new stroke Then on 10/31 she became awake, alert, speaking in sentences, able to feed herself and even support herself with both arms when she fell on 10/31 Therefore she had a TIA Plan: Diet changed to soft mechanical with thin liquids and was advanced to soft when she awaoke more Cont on daily ASA Will check lipid panel and treat per guidelines PT and OT to continue (5) Alcohol use Impression: Daughter stated she drinks 16 oz of vodka daily. Last drink was 10/23/23 per daughter, however unable to verify this with patient. Her CIWA has been scoring 8 today. Toxicology screen upon admission was also positive for benzodiazepines. Plan: Cont CIWA protocol, and to give iv Ativan if score >8 Continue home Venlafaxine Supplemental thiamine, multivitamin ordered (6) DM, type 2 Poorly controlled DM with an A1c of 9.7. Estimated average glucose is 232. We learned she was not picking up her insulin regularly. Aslo, her alcohol abuse is adding to elevated serum glu levels Plan: Cont ling acting insulin, cont sliding scale with prn SSI, cancel mealtime Insulin Cont fingerstick checks, DM diet and hypoglycemia protocol (7) Aortic stenosis Impression: She has a systolic murmur best heard at upper sternal border. An Echo was done and confirmed , mild in degree Plan: She will need follow up with Cardiology (8) Electrolyte abnornality Impression: All labs were reviewed and she again has a low potassium and low magnesium today. 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 Per our pharmacy, she is on lantus and humalog, however this was last filled at the pharmacy in July 2023 (4 mos ago). Also possibly her UTI or alcohol abuse, SGLT-2 inhibitors, could be triggering DKA. With resolution of acidosis, her Insulin drip was stopped on 10/26 and she was transferred out of ICU yesterday 10/27 Plan: Resume home insulin Cont fingerstick checks, sliding scale Insulin coverage, DM diet and hypoglycemia protocol - Current Meds Current Meds: Current Medications Generic Name Dose Route Start Last Admin Trade Name Freq PRN Reason Stop Dose Admin Acetaminophen 650 mg 10/25/23 12:21 10/30/23 19:30 Acetaminophen 325 Mg Tablet PO 650 mg Q4HR PRN Administration Pain 1 to 4, or Fever Enoxaparin Sodium 40 mg 10/26/23 09:00 11/01/23 08:29 Enoxaparin 40 Mg/0.4 Ml Syringe SUBQ 40 mg DAILY CURTIS Administration Fluconazole 200 mg 10/31/23 09:00 11/01/23 08:27 Fluconazole 100 Mg Tablet PO 200 mg DAILY CURTIS Administration Ceftriaxone Sodium 1 gm/ 100 mls @ 200 mls/hr 10/30/23 17:35 11/01/23 08:30 Sodium Chloride IV 200 mls/hr DAILY CURTIS Administration Insulin Glargine-yfgn 30 unit 10/30/23 09:00 11/01/23 08:31 Insulin Glargine-Yfgn 300 Unit/3 Ml Pen SUBQ 30 unit DAILY CURTIS Administration Insulin Glargine-yfgn 3 unit 10/31/23 21:00 10/31/23 21:15 Insulin Glargine-Yfgn 300 Unit/3 Ml Pen SUBQ 3 unit QPM CURTIS Administration Insulin Human Lispro 1 - 9 unit 10/30/23 08:00 11/01/23 08:24 Insulin Lispro 300 Unit/3 Ml Pen SUBQ Not Given 0800,1200,1700,2100 [facility] Protocol Insulin Human Lispro 3 unit 10/30/23 08:50 10/31/23 17:02 Insulin Lispro 300 Unit/3 Ml Pen SUBQ 3 unit TIDWM CURTIS Administration Protocol Lactobacillus Rhamnosus 1 cap 10/31/23 12:00 10/31/23 11:48 Lactobacillus Rhamnosus Gg Capsule PO 1 cap 1200 CURTIS Administration Levothyroxine Sodium 25 mcg 10/30/23 07:00 11/01/23 07:04 Levothyroxine 25 Mcg Tablet PO 25 mcg QDAC CURTIS Administration Lorazepam 1 mg 10/25/23 18:44 10/27/23 18:00 Lorazepam 2 Mg/Ml Vial IVP 1 mg Q30M PRN Administration CIWA >8 Protocol Multi-Ingredient Ointment 1 applic 10/29/23 21:14 10/31/23 10:39 Zinc Oxide 20% Oint 30 Gm Tube TOP 1 applic PRN PRN Administration Skin Care Ondansetron HCl 4 mg 10/25/23 12:21 10/31/23 17:21 Ondansetron Odt 4 Mg Tablet TL 4 mg Q6HR PRN Administration Nausea / Vomiting Oxycodone HCl 5 mg 10/25/23 12:21 11/01/23 00:41 Oxycodone 5 Mg Tablet PO 5 mg Q4HR PRN Administration Pain 5 to 7 Pantoprazole Sodium 40 mg 10/26/23 07:00 11/01/23 07:04 Pantoprazole 40 Mg Tablet PO 40 mg QDAC CURTIS Administration Polyethylene Glycol 17 gm 10/27/23 09:00 11/01/23 08:27 Polyethylene Glycol 3350 17 Gm Packet PO Not Given DAILY CURTIS Potassium Chloride 20 meq 10/28/23 10:16 11/01/23 08:26 Potassium Chloride 10 Meq Capsule PO 20 meq DAILYWM CURTIS Administration Multivit/Folic Acid/Iron 1 tab 10/26/23 09:00 11/01/23 08:27 Vitamin Tablet PO 1 tab DAILY CURTIS Administration Sodium Chloride 10 ml 10/25/23 17:00 11/01/23 08:32 Sodium Chloride Flush 0.9% 10 Ml Syringe IVP 10 ml 0100,0900,1700 CURTIS Administration Sodium Chloride 10 ml 10/25/23 12:21 10/27/23 23:49 Sodium Chloride Flush 0.9% 10 Ml Syringe IVP 10 ml PRN PRN Administration NEEDED PER PROVIDER ORDERS Thiamine HCl 100 mg 10/26/23 09:00 11/01/23 08:27 Thiamine 100 Mg Tablet PO 100 mg DAILY CURTIS Administration Venlafaxine HCl 75 mg 10/29/23 12:00 11/01/23 08:27 Venlafaxine Er 75 Mg Capsule PO 75 mg BID CURTIS Administration - Lab Result Fish Bone Diagrams: 11/01/23 04:57 11/01/23 05:00 - Additional Planning My Orders: My Active Orders 10/31/23 12:00 Lactobacillus Rhamnosus GG [Culturelle] 1 cap PO 1200 10/31/23 21:00 Insulin Glargine-Yfgn [Semglee] 3 unit SUBQ QPM 11/01/23 05:00 BMP - BASIC METABOLIC PANEL [CHEM] Routine MAGNESIUM [CHEM] Routine 11/01/23 09:03 Telemetry-Discontinue [RC] .ONCE 11/02/23 05:00 BMP - BASIC METABOLIC PANEL [CHEM] DAILYLAB CBC - COMP BLD CT W/AUTO DIFF [HEME] DAILYLAB MAGNESIUM [CHEM] DAILYLAB 11/03/23 05:00 BMP - BASIC METABOLIC PANEL [CHEM] DAILYLAB CBC - COMP BLD CT W/AUTO DIFF [HEME] DAILYLAB MAGNESIUM [CHEM] DAILYLAB 11/04/23 05:00 BMP - BASIC METABOLIC PANEL [CHEM] DAILYLAB CBC - COMP BLD CT W/AUTO DIFF [HEME] DAILYLAB MAGNESIUM [CHEM] DAILYLAB 11/05/23 05:00 BMP - BASIC METABOLIC PANEL [CHEM] DAILYLAB CBC - COMP BLD CT W/AUTO DIFF [HEME] DAILYLAB Subjective - Subjective Patient Reports: Resting Comfortably, No Complaints Objective Vital Signs: Vital Signs - 24 hr 10/31/23 10/31/23 10/31/23 12:25 13:40 14:40 Temperature 36.5 C Heart Rate [ 72 Brachial] Heart Rate [ 82 Sitting] Heart Rate [ 82 Supine] Respiratory 20 Rate Blood Pressure 105/43 L [Right Brachial artery] Blood Pressure 121/95 H [Sitting] Blood Pressure 116/54 L [Standing] Blood Pressure 123/61 [Supine] O2 Saturation 91 L 95 If not protocol : Oxygen Flow, liters/minute 10/31/23 10/31/23 10/31/23 14:50 15:55 20:39 Temperature 36.6 C 37.3 C 36.9 C Heart Rate [ 82 73 72 Brachial] Heart Rate [ Sitting] Heart Rate [ Supine] Respiratory 20 20 16 Rate Blood Pressure 107/65 110/67 115/59 L [Right Brachial artery] Blood Pressure [Sitting] Blood Pressure [Standing] Blood Pressure [Supine] O2 Saturation 94 90 L 92 If not protocol : Oxygen Flow, liters/minute 10/31/23 11/01/23 11/01/23 23:32 04:49 05:44 Temperature 36.9 C 36.8 C Heart Rate [ 74 78 Brachial] Heart Rate [ Sitting] Heart Rate [ Supine] Respiratory 20 18 Rate Blood Pressure 114/51 L 105/51 L [Right Brachial artery] Blood Pressure [Sitting] Blood Pressure [Standing] Blood Pressure [Supine] O2 Saturation 91 L 86 L 95 If not protocol 2 : Oxygen Flow, liters/minute 11/01/23 08:21 Temperature 36.7 C Heart Rate [ 74 Brachial] Heart Rate [ Sitting] Heart Rate [ Supine] Respiratory 20 Rate Blood Pressure 106/50 L [Right Brachial artery] Blood Pressure [Sitting] Blood Pressure [Standing] Blood Pressure [Supine] O2 Saturation 96 If not protocol 2 : Oxygen Flow, liters/minute Oxygen O2 Source Nasal cannula I&O (Last 24 Hrs): Intake and Output Totals x24h 10/30/23 10/31/23 11/01/23 23:59 23:59 23:59 Intake Total 1950 1241.667 Output Total 1050 250 100 Balance 900 991.667 -100 General: Alert, Oriented x3, No acute distress HEENT: EOMI, Mucous membr. moist/pink Neck: Supple Neuro: Alert, Non Focal Cardiovascular: Regular rate, No murmurs Respiratory: No respiratory distress, Breath sounds nml Abdomen: Normal bowel sounds, Soft Extremities: No clubbing, No edema, No tenderness/swelling - Results Results: Laboratory Results WBC 4.6 x10^3/uL (4.8-10.8) L 11/01/23 04:57 RBC 3.82 10^6/uL (4.20-5.40) L 11/01/23 04:57 Hgb 10.5 g/dL (12.0-16.0) L 11/01/23 04:57 Hct 33.6 % (37.0-47.0) L 11/01/23 04:57 MCV 88.0 fL (81.0-99.0) 11/01/23 04:57 MCH 27.5 pg (27.0-31.0) 11/01/23 04:57 MCHC 31.3 g/dL (32.0-36.0) L 11/01/23 04:57 RDW 14.5 % (12.0-15.0) 11/01/23 04:57 Plt Count 234 10^3/uL (130-450) 11/01/23 04:57 MPV 11.0 fL (7.9-10.8) H 11/01/23 04:57 Neut # (Auto) 1.9 10^3/uL (1.5-6.6) 11/01/23 04:57 Lymph # (Auto) 1.8 10^3/uL (1.5-3.5) 11/01/23 04:57 [place]mer # (Auto) 0.8 10^3/uL (0.0-1.0) 11/01/23 04:57 Eos # (Auto) 0.1 10^3/uL (0.0-0.7) 11/01/23 04:57 Baso # (Auto) 0.0 10^3/uL (0.0-0.1) 11/01/23 04:57 Absolute Nucleated RBC 0.00 x10^3/uL 11/01/23 04:57 Nucleated RBC % 0.0 /100WBC 11/01/23 04:57 VBG pH 7.306 (7.31-7.41) L 10/29/23 05:30 VBG pCO2 32.3 mmHg (41-51) L 10/26/23 06:12 VBG pO2 48.4 mmHg (25-47) H 10/26/23 06:12 VBG HCO3 14.2 mmol/L (23-28) L 10/26/23 06:12 VBG Total CO2 15.2 mmol/L (24-29) L 10/26/23 06:12 VBG O2 Saturation 86.6 % (60-80) H 10/26/23 06:12 VBG Base Excess -11.7 mmol/L (-2 - +2) L 10/26/23 06:12 Ionized Calcium 1.09 mmol/L (1.15-1.33) L 10/29/23 05:30 Sodium 132 mmol/L (135-145) L 10/31/23 05:24 Potassium 3.3 mmol/L (3.5-4.5) L 10/31/23 05:24 Chloride 97 mmol/L (101-111) L 10/31/23 05:24 Carbon Dioxide 28 mmol/L (21-32) 10/31/23 05:24 Anion Gap 7.0 (6-13) 10/31/23 05:24 BUN 14 mg/dL (6-20) 10/31/23 05:24 Creatinine 0.5 mg/dL (0.6-1.3) L 10/31/23 05:24 Estimated GFR (MDRD) 120 (>89) 10/31/23 05:24 Glucose 204 mg/dL (74-104) H 10/31/23 05:24 POC Whole Bld Glucose 120 mg/dL (70 - 100) H 11/01/23 07:35 Estimat Average Glucose 232 mg/dL (70-100) H 10/27/23 04:29 Hemoglobin A1c % 9.7 % (4.27-6.07) H 10/27/23 04:29 Calcium 8.5 mg/dL (8.5-10.3) 10/31/23 05:24 Phosphorus 3.8 mg/dL (2.5-5.0) 10/31/23 05:24 Magnesium 1.4 mg/dL (1.7-2.3) L 10/31/23 05:24 Total Bilirubin 0.3 mg/dL (0.2-1.0) 10/25/23 05:21 AST 10 IU/L (10-42) 10/25/23 05:21 ALT 9 IU/L (10-60) L 10/25/23 05:21 Alkaline Phosphatase 60 IU/L (42-121) 10/25/23 05:21 Troponin I High Sens 4.9 ng/L (2.3-14.8) 10/25/23 11:15 Total Protein 7.1 g/dL (6.4-8.9) 10/25/23 05:21 Albumin 4.5 g/dL (3.2-5.5) 10/25/23 05:21 Globulin 2.6 g/dL (2.1-4.2) 10/25/23 05:21 Albumin/Globulin Ratio 1.7 (1.0-2.2) 10/25/23 05:21 Lipase < 10 U/L (11-82) L 10/25/23 05:21 Urine Color LIGHT YELLOW 10/30/23 14:45 Urine Clarity TURBID (CLEAR) 10/30/23 14:45 Urine pH 5.5 PH (5.0-7.5) 10/30/23 14:45 Ur Specific [place] >=1.030 (1.002-1.030) H 10/30/23 14:45 Urine Protein 30 mg/dL (NEGATIVE) H 10/30/23 14:45 Urine Glucose (UA) >=1000 mg/dL (NEGATIVE) H 10/30/23 14:45 Urine Ketones NEGATIVE mg/dL (NEGATIVE) 10/30/23 14:45 Urine Occult Blood LARGE (NEGATIVE) H 10/30/23 14:45 Urine Nitrite NEGATIVE (NEGATIVE) 10/30/23 14:45 Urine Bilirubin NEGATIVE (NEGATIVE) 10/30/23 14:45 Urine Urobilinogen 0.2 (NORMAL) E.U./dL (NORMAL) 10/30/23 14:45 Ur Leukocyte Esterase SMALL (NEGATIVE) H 10/30/23 14:45 Urine RBC TNTC /HPF (0-5) H 10/30/23 14:45 Urine WBC >25 /HPF (0-5) H 10/30/23 14:45 Urine WBC Clumps PRESENT 10/30/23 14:45 Ur Squamous Epith Cells NONE SEEN (<= Few) 10/30/23 14:45 Urine Bacteria Many /HPF (None Seen) H 10/30/23 14:45 Urine Yeast PRESENT 10/30/23 14:45 Ur Microscopic Review INDICATED 10/25/23 16:40 Urine Culture Comments INDICATED 10/30/23 14:45 Nasal Adenovirus (PCR) NOT DETECTED 10/30/23 12:42 Nasal B. parapertussis DNA (PCR) NOT DETECTED 10/30/23 12:42 Nasal Coronavir 229E PCR NOT DETECTED 10/30/23 12:42 Nasal Coronavir HKU1 PCR NOT DETECTED 10/30/23 12:42 Nasal Coronavir NL63 PCR NOT DETECTED 10/30/23 12:42 Nasal Coronavir OC43 PCR NOT DETECTED 10/30/23 12:42 Nasal Enterovir/Rhinovir PCR NOT DETECTED 10/30/23 12:42 Nasal Influ A H1 2009 PCR DETECTED A 10/30/23 12:42 Nasal Influenza B PCR NOT DETECTED 10/30/23 12:42 Nasal Influenza A PCR NOT DETECTED 10/25/23 11:49 Nasal Parainfluen 1 PCR NOT DETECTED 10/30/23 12:42 Nasal Parainfluen 2 PCR NOT DETECTED 10/30/23 12:42 Nasal Parainfluen 3 PCR NOT DETECTED 10/30/23 12:42 Nasal Parainfluen 4 PCR NOT DETECTED 10/30/23 12:42 Nasal RSV (PCR) NOT DETECTED 10/30/23 12:42 Nasal Screen MRSA (PCR) NEGATIVE (NEGATIVE) 10/25/23 14:00 Nasal B.pertussis DNA PCR NOT DETECTED 10/30/23 12:42 Nasal C.pneumoniae (PCR) NOT DETECTED 10/30/23 12:42 David Human Metapneumo PCR NOT DETECTED 10/30/23 12:42 Nasal M.pneumoniae (PCR) NOT DETECTED 10/30/23 12:42 Nasal SARS-CoV-2 (PCR) NOT DETECTED 10/30/23 12:42 Stl C. diff Tox B Gene NEGATIVE (NEGATIVE) 10/31/23 Unknown Urine Opiates Screen NEGATIVE (NEGATIVE) 10/25/23 05:58 Ur Buprenorphine Scrn NEGATIVE (NEGATIVE) 10/25/23 05:58 Ur Oxycodone Screen NEGATIVE (NEGATIVE) 10/25/23 05:58 Urine Methadone Screen NEGATIVE (NEGATIVE) 10/25/23 05:58 Ur Barbiturates Screen NEGATIVE (NEGATIVE) 10/25/23 05:58 Ur Tricyclics Screen NEGATIVE (NEGATIVE) 10/25/23 05:58 Ur Phencyclidine Scrn NEGATIVE (NEGATIVE) 10/25/23 05:58 Ur Amphetamine Screen NEGATIVE (NEGATIVE) 10/25/23 05:58 U Methamphetamines Scrn NEGATIVE (NEGATIVE) 10/25/23 05:58 U Benzodiazepines Scrn POSITIVE (NEGATIVE) H 10/25/23 05:58 Urine Cocaine Screen NEGATIVE (NEGATIVE) 10/25/23 05:58 U Cannabinoids Screen NEGATIVE (NEGATIVE) 10/25/23 05:58 Ur Drug Screen Comment CUTOFF CONC BELOW: 10/25/23 05:58 Ethyl Alcohol < 10.0 mg/dL 10/25/23 05:21 Serum Ketones SMALL (NEGATIVE) H 10/26/23 07:30
[2023-11-01 09:20] LABS: CALCIUM 8.6 mg/dL (8.5-10.3); CREATININE 0.6 mg/dL (0.6-1.3); MAGNESIUM 1.7 mg/dL (1.7-2.3)
[2023-11-02 05:23] LABS: BASOPHILS % (AUTO) 0.5 %; EOSINOPHILS # (AUTO) 0.1 10^3/uL (0.0-0.7); EOSINOPHILS % (AUTO) 3.1 %; HCT - HEMATOCRIT 31.3 % (37.0-47.0); LYMPHOCYTES # (AUTO) 2.2 10^3/uL (1.5-3.5); LYMPHOCYTES % (AUTO) 52.2 %; MEAN CORPUSCULAR HEMOGLOBIN 27.5 pg (27.0-31.0); MEAN CORPUSCULAR HGB CONC 31.9 g/dL (32.0-36.0); MEAN PLATELET VOLUME 10.7 fL (7.9-10.8); MONOCYTES # (AUTO) 0.6 10^3/uL (0.0-1.0); MONOCYTES % (AUTO) 13.9 %; NEUTROPHILS # (AUTO) 1.2 10^3/uL (1.5-6.6); NEUTROPHILS % (AUTO) 29.8 %; PLT - PLATELET COUNT 217 10^3/uL (130-450); RED BLOOD COUNT 3.64 10^6/uL (4.20-5.40); RED CELL DISTRIBUTION WIDTH 14.4 % (12.0-15.0); WHITE BLOOD COUNT 4.2 x10^3/uL (4.8-10.8)
[2023-11-02 05:39] LABS: CALCIUM 8.7 mg/dL (8.5-10.3); CHOLESTEROL 132 mg/dL; CREATININE 0.5 mg/dL (0.6-1.3); HDL CHOLESTEROL 22 mg/dL; LDL CHOLESTEROL,CALCULATED 59 mg/dL; LDL/HDL RATIO 2.7 (<4.4); MAGNESIUM 1.5 mg/dL (1.7-2.3); TRIGLYCERIDES 255 mg/dL (48-352); VLDL CHOLESTEROL 51 mg/dL
[2023-11-02] MEDS: MAGNESIUM SULFATE 2 GRAM 2 GM/50 ML BAG IV ONE (10:34)
[2023-11-02] MEDS: ASPIRIN EC 81 MG TABLET PO SCH (10:34)
[2023-11-02] MEDS: INSULIN GLARGINE-YFGN 300 UNIT/3 ML PEN SUBQ SCH ×2 (10:35→20:39)
[2023-11-02] MEDS: INSULIN LISPRO 300 UNIT/3 ML PEN SUBQ SCH (12:26)
[2023-11-02] MEDS: MAGNESIUM OXIDE 400 MG TABLET PO SCH (12:26)
--- NOTE | 2023-11-02 14:16 | PROVIDER PROGRESS NOTE ---
Assessment/Plan - Problem List (1) UTI (urinary tract infection) Assessment/Plan: Leukocytosis at time of admission may have been from demargination from DKA or from her infection. She was able to communicate that she had pain with urination and back pain. The adm U/A was abn but Urine culture only grew yeast. We switched therapy 10/26 from levofloxacin to fluconazole 200 mg orally and planning that for 2 weeks. QTc was checked. On 10/30 she spiked a fever of 38.2C. We obtained blood cultures x 2, spt cx ordered, and ordered a UA. The UA came back showing many bacteria and many white blood cells and nitrates, therefore she had an undertreated UTI, as the most likely cause of the fever. The new urine cx again showed yeast growth Plan: Because the new U/A indicated many bacteria, I started her on empiric Ceftriaxone. I plan on giving her an empiric 5 day course. Stop date has been placed. Cont Fluconazole 200 mg PO qd as well, Stop date will be 11/09/23, it was entered. (2) TIA Assessment/Plan: IMPROVED For about 4 days she was sleepy, minimally communicative and when touched or spoken to, she started crying tears and screamed when crying. 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 And we suspected she was altered due to DKA, her UTI, and alcohol use with withdrawal. Then on 10/30 she had R arm and leg muscle weakness and a brain MRI was done. It did not show a new stroke Then on 10/31 she became awake, alert, speaking in sentences, able to feed herself and even support herself with both arms (when she fell on 10/31). Therefore she had a TIA. We checked her lipid panel and she is at LDL goal, as per guidelines Plan: Diet changed to soft mechanical with thin liquids and she was seen by ST and was advanced to soft when she awoke more Cont on daily ASA PT and OT to continue and disposition will be to SNF for rehab (3) Fall during current hospitalization Impression: On 10/31 pt was alert enough to work with PT and OT. She stood and walked to chair and was left sitting in chair w/ chair alarm on. Our SW heard her yelling for help, entered room and found her between bed and chair, supporting herself just above the floor with elbows and forearms, one arm on chair rail and other arm on bed mattress. She was helped down to the ground and I was contacted. The chair alarm had not alarmed, it was found to be defective. I came in and examined her: she was c/o pain of buttocks, no other spot. She had not fallen and had not hit her head. She was neurologically intact. Xrays of pelvis and B hips ordered>> these were neg for trauma. Plan: A new bed alarm was applied. Cont with PT and OT and up with assist (4) Diarrhea Assessment/Plan: IMPROVING C. diff stool test came back neg The patient has had 7 liquid BMs>> 4/d>> 2/d most recently. Plan: Will give prn Imodium and Metamucil (5) Alcohol use Impression: Daughter stated she drinks 16 oz of vodka daily. Last drink was 10/23/23 per daughter, however unable to verify this with patient. Her CIWA has been scoring 8 today. Toxicology screen upon admission was also positive for benzodiazepines. Plan: I will stop her CIWA protocol Continue home Venlafaxine Supplemental thiamine, multivitamin ordered (6) DM, type 2 Poorly controlled DM with an A1c of 9.7. Estimated average glucose is 232. We learned she was not picking up her insulin regularly. Aslo, her alcohol abuse is adding to elevated serum glu levels Plan: Cont long acting insulin, cont sliding scale with prn SSI, cancel mealtime Insulin. I am adjusting all doses down slightly today, based on the last 2 days POC glu results Cont fingerstick checks, DM diet and hypoglycemia protocol (7) Aortic stenosis Impression: She has a systolic murmur best heard at upper sternal border. An Echo was done and confirmed , mild in degree Plan: She will need follow up with Cardiology (8) Electrolyte abnornality Impression: She develops low potassium and low magnesium. 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 Per our pharmacy, she is on lantus and humalog, however this was last filled at the pharmacy in July 2023 (4 mos ago). Also possibly her UTI or alcohol abuse, SGLT-2 inhibitors, could be triggering DKA. With resolution of acidosis, her Insulin drip was stopped on 10/26 and she was transferred out of ICU yesterday 10/27 Plan: Cont fingerstick checks, long acting and sliding scale Insulin coverage, DM diet and hypoglycemia protocol - Current Meds Current Meds: Current Medications Generic Name Dose Route Start Last Admin Trade Name Freq PRN Reason Stop Dose Admin Acetaminophen 650 mg 10/25/23 12:21 11/01/23 12:33 Acetaminophen 325 Mg Tablet PO 650 mg Q4HR PRN Administration Pain 1 to 4, or Fever Aspirin 81 mg 11/02/23 09:00 11/02/23 10:34 Aspirin Ec 81 Mg Tablet PO 81 mg DAILY CURTIS Administration Enoxaparin Sodium 40 mg 10/26/23 09:00 11/02/23 08:48 Enoxaparin 40 Mg/0.4 Ml Syringe SUBQ 40 mg DAILY CURTIS Administration Fluconazole 200 mg 10/31/23 09:00 11/02/23 08:47 Fluconazole 100 Mg Tablet PO 11/10/23 00:01 200 mg DAILY CURTIS Administration Ceftriaxone Sodium 1 gm/ 100 mls @ 200 mls/hr 10/30/23 17:35 11/02/23 10:37 Sodium Chloride IV 11/04/23 00:01 Infused DAILY CURTIS Infusion Insulin Glargine-yfgn 25 unit 11/02/23 10:05 11/02/23 10:35 Insulin Glargine-Yfgn 300 Unit/3 Ml Pen SUBQ 25 unit DAILY CURTIS Administration Insulin Human Lispro 1 - 9 unit 10/30/23 08:00 11/02/23 12:27 Insulin Lispro 300 Unit/3 Ml Pen SUBQ 1 unit 0800,1200,1700,2100 CURTIS Administration Protocol Insulin Human Lispro 2 unit 11/02/23 12:00 11/02/23 12:26 Insulin Lispro 300 Unit/3 Ml Pen SUBQ 2 unit TIDWM CURTIS Administration Protocol Lactobacillus Rhamnosus 1 cap 10/31/23 12:00 11/02/23 12:26 Lactobacillus Rhamnosus Gg Capsule PO 1 cap 1200 CURTIS Administration Levothyroxine Sodium 25 mcg 10/30/23 07:00 11/02/23 06:37 Levothyroxine 25 Mcg Tablet PO 25 mcg QDAC CURTIS Administration Lorazepam 1 mg 10/25/23 18:44 10/27/23 18:00 Lorazepam 2 Mg/Ml Vial IVP 1 mg Q30M PRN Administration CIWA >8 Protocol Magnesium Oxide 400 mg 11/02/23 12:00 11/02/23 12:26 Magnesium Oxide 400 Mg Tablet PO 400 mg DAILYWM CURTIS Administration Multi-Ingredient Ointment 1 applic 10/29/23 21:14 11/02/23 05:39 Zinc Oxide 20% Oint 30 Gm Tube TOP 1 applic PRN PRN Administration Skin Care Ondansetron HCl 4 mg 10/25/23 12:21 10/31/23 17:21 Ondansetron Odt 4 Mg Tablet TL 4 mg Q6HR PRN Administration Nausea / Vomiting Oxycodone HCl 5 mg 10/25/23 12:21 11/02/23 06:47 Oxycodone 5 Mg Tablet PO 5 mg Q4HR PRN Administration Pain 5 to 7 Pantoprazole Sodium 40 mg 10/26/23 07:00 11/02/23 06:37 Pantoprazole 40 Mg Tablet PO 40 mg QDAC CURTIS Administration Polyethylene Glycol 17 gm 10/27/23 09:00 11/02/23 08:40 Polyethylene Glycol 3350 17 Gm Packet PO Not Given DAILY CURTIS Potassium Chloride 20 meq 10/28/23 10:16 11/02/23 08:47 Potassium Chloride 10 Meq Capsule PO 20 meq DAILYWM CURTIS Administration Multivit/Folic Acid/Iron 1 tab 10/26/23 09:00 11/02/23 08:48 Vitamin Tablet PO 1 tab DAILY CURTIS Administration Sodium Chloride 10 ml 10/25/23 17:00 11/02/23 08:49 Sodium Chloride Flush 0.9% 10 Ml Syringe IVP 10 ml 0100,0900,1700 CURTIS Administration Sodium Chloride 10 ml 10/25/23 12:21 10/27/23 23:49 Sodium Chloride Flush 0.9% 10 Ml Syringe IVP 10 ml PRN PRN Administration NEEDED PER PROVIDER ORDERS Thiamine HCl 100 mg 10/26/23 09:00 11/02/23 08:47 Thiamine 100 Mg Tablet PO 100 mg DAILY CURTIS Administration Venlafaxine HCl 75 mg 10/29/23 12:00 11/02/23 08:48 Venlafaxine Er 75 Mg Capsule PO 75 mg BID CURTIS Administration - Lab Result Fish Bone Diagrams: 11/02/23 05:15 11/02/23 05:15 - Additional Planning My Orders: My Active Orders 11/02/23 09:00 Aspirin EC [Ecotrin] 81 mg PO DAILY 11/02/23 10:05 Insulin Glargine-Yfgn [Semglee] 25 unit SUBQ DAILY 11/02/23 12:00 Insulin Lispro [Humalog Kwikpen U-100] 2 unit SUBQ TIDWM Magnesium Oxide [Mag Ox] 400 mg PO DAILYWM 11/02/23 21:00 Insulin Glargine-Yfgn [Semglee] 2 unit SUBQ QPM 11/03/23 05:00 BMP - BASIC METABOLIC PANEL [CHEM] DAILYLAB CBC - COMP BLD CT W/AUTO DIFF [HEME] DAILYLAB MAGNESIUM [CHEM] DAILYLAB 11/04/23 05:00 BMP - BASIC METABOLIC PANEL [CHEM] DAILYLAB CBC - COMP BLD CT W/AUTO DIFF [HEME] DAILYLAB MAGNESIUM [CHEM] DAILYLAB 11/05/23 05:00 BMP - BASIC METABOLIC PANEL [CHEM] DAILYLAB CBC - COMP BLD CT W/AUTO DIFF [HEME] DAILYLAB Subjective - Subjective Patient Reports: Resting Comfortably, No Complaints Objective Vital Signs: Vital Signs - 24 hr 11/01/23 11/02/23 11/02/23 16:56 00:02 08:05 Temperature 36.6 C 36.7 C 36.5 C Heart Rate [ 68 73 71 Brachial] Respiratory 20 16 20 Rate Blood Pressure 116/44 L [Left Brachial artery] Blood Pressure 140/60 H 117/48 L [Right Brachial artery] O2 Saturation 96 95 96 If not protocol 2 2 2 : Oxygen Flow, liters/minute 11/02/23 11/02/23 10:45 10:50 Temperature Heart Rate [ Brachial] Respiratory Rate Blood Pressure [Left Brachial artery] Blood Pressure [Right Brachial artery] O2 Saturation 87 L 93 If not protocol 2 : Oxygen Flow, liters/minute Oxygen O2 Source Nasal cannula I&O (Last 24 Hrs): Intake and Output Totals x24h 10/31/23 11/01/23 11/02/23 23:59 23:59 23:59 Intake Total 1241.667 580 150 Output Total 250 400 Balance 991.667 180 150 General: Alert, Oriented x3 HEENT: EOMI, Mucous membr. moist/pink Neck: Supple, No JVD Neuro: Alert, Non Focal Cardiovascular: Regular rate Respiratory: No respiratory distress Abdomen: Soft Extremities: No clubbing, No edema, No tenderness/swelling - Results Results: Laboratory Results WBC 4.2 x10^3/uL (4.8-10.8) L 11/02/23 05:15 RBC 3.64 10^6/uL (4.20-5.40) L 11/02/23 05:15 Hgb 10.0 g/dL (12.0-16.0) L 11/02/23 05:15 Hct 31.3 % (37.0-47.0) L 11/02/23 05:15 MCV 86.0 fL (81.0-99.0) 11/02/23 05:15 MCH 27.5 pg (27.0-31.0) 11/02/23 05:15 MCHC 31.9 g/dL (32.0-36.0) L 11/02/23 05:15 RDW 14.4 % (12.0-15.0) 11/02/23 05:15 Plt Count 217 10^3/uL (130-450) 11/02/23 05:15 MPV 10.7 fL (7.9-10.8) 11/02/23 05:15 Neut # (Auto) 1.2 10^3/uL (1.5-6.6) L 11/02/23 05:15 Lymph # (Auto) 2.2 10^3/uL (1.5-3.5) 11/02/23 05:15 [place] # (Auto) 0.6 10^3/uL (0.0-1.0) 11/02/23 05:15 Eos # (Auto) 0.1 10^3/uL (0.0-0.7) 11/02/23 05:15 Baso # (Auto) 0.0 10^3/uL (0.0-0.1) 11/02/23 05:15 Absolute Nucleated RBC 0.00 x10^3/uL 11/02/23 05:15 Nucleated RBC % 0.0 /100WBC 11/02/23 05:15 VBG pH 7.306 (7.31-7.41) L 10/29/23 05:30 VBG pCO2 32.3 mmHg (41-51) L 10/26/23 06:12 VBG pO2 48.4 mmHg (25-47) H 10/26/23 06:12 VBG HCO3 14.2 mmol/L (23-28) L 10/26/23 06:12 VBG Total CO2 15.2 mmol/L (24-29) L 10/26/23 06:12 VBG O2 Saturation 86.6 % (60-80) H 10/26/23 06:12 VBG Base Excess -11.7 mmol/L (-2 - +2) L 10/26/23 06:12 Ionized Calcium 1.09 mmol/L (1.15-1.33) L 10/29/23 05:30 Sodium 137 mmol/L (135-145) 11/02/23 05:15 Potassium 4.0 mmol/L (3.5-4.5) 11/02/23 05:15 Chloride 101 mmol/L (101-111) 11/02/23 05:15 Carbon Dioxide 29 mmol/L (21-32) 11/02/23 05:15 Anion Gap 7.0 (6-13) 11/02/23 05:15 BUN 8 mg/dL (6-20) 11/02/23 05:15 Creatinine 0.5 mg/dL (0.6-1.3) L 11/02/23 05:15 Estimated GFR (MDRD) 120 (>89) 11/02/23 05:15 Glucose 100 mg/dL (74-104) 11/02/23 05:15 POC Whole Bld Glucose 162 mg/dL (70 - 100) H 11/02/23 11:06 Estimat Average Glucose 232 mg/dL (70-100) H 10/27/23 04:29 Hemoglobin A1c % 9.7 % (4.27-6.07) H 10/27/23 04:29 Calcium 8.7 mg/dL (8.5-10.3) 11/02/23 05:15 Phosphorus 3.8 mg/dL (2.5-5.0) 10/31/23 05:24 Magnesium 1.5 mg/dL (1.7-2.3) L 11/02/23 05:15 Total Bilirubin 0.3 mg/dL (0.2-1.0) 10/25/23 05:21 AST 10 IU/L (10-42) 10/25/23 05:21 ALT 9 IU/L (10-60) L 10/25/23 05:21 Alkaline Phosphatase 60 IU/L (42-121) 10/25/23 05:21 Troponin I High Sens 4.9 ng/L (2.3-14.8) 10/25/23 11:15 Total Protein 7.1 g/dL (6.4-8.9) 10/25/23 05:21 Albumin 4.5 g/dL (3.2-5.5) 10/25/23 05:21 Globulin 2.6 g/dL (2.1-4.2) 10/25/23 05:21 Albumin/Globulin Ratio 1.7 (1.0-2.2) 10/25/23 05:21 Triglycerides 255 mg/dL (48-352) 11/02/23 05:15 Cholesterol 132 mg/dL (-200) 11/02/23 05:15 LDL Cholesterol, Calc 59 mg/dL (-129) 11/02/23 05:15 VLDL Cholesterol 51 mg/dL 11/02/23 05:15 HDL Cholesterol 22 mg/dL (60-) L 11/02/23 05:15 LDL/HDL Ratio 2.7 (<4.4) 11/02/23 05:15 Cholesterol/HDL Ratio 6.0 (<4.4) 11/02/23 05:15 Lipase < 10 U/L (11-82) L 10/25/23 05:21 Urine Color LIGHT YELLOW 10/30/23 14:45 Urine Clarity TURBID (CLEAR) 10/30/23 14:45 Urine pH 5.5 PH (5.0-7.5) 10/30/23 14:45 Ur Specific Gilson >=1.030 (1.002-1.030) H 10/30/23 14:45 Urine Protein 30 mg/dL (NEGATIVE) H 10/30/23 14:45 Urine Glucose (UA) >=1000 mg/dL (NEGATIVE) H 10/30/23 14:45 Urine Ketones NEGATIVE mg/dL (NEGATIVE) 10/30/23 14:45 Urine Occult Blood LARGE (NEGATIVE) H 10/30/23 14:45 Urine Nitrite NEGATIVE (NEGATIVE) 10/30/23 14:45 Urine Bilirubin NEGATIVE (NEGATIVE) 10/30/23 14:45 Urine Urobilinogen 0.2 (NORMAL) E.U./dL (NORMAL) 10/30/23 14:45 Ur Leukocyte Esterase SMALL (NEGATIVE) H 10/30/23 14:45 Urine RBC TNTC /HPF (0-5) H 10/30/23 14:45 Urine WBC >25 /HPF (0-5) H 10/30/23 14:45 Urine WBC Clumps PRESENT 10/30/23 14:45 Ur Squamous Epith Cells NONE SEEN (<= Few) 10/30/23 14:45 Urine Bacteria Many /HPF (None Seen) H 10/30/23 14:45 Urine Yeast PRESENT 10/30/23 14:45 Ur Microscopic Review INDICATED 10/25/23 16:40 Urine Culture Comments INDICATED 10/30/23 14:45 Nasal Adenovirus (PCR) NOT DETECTED 10/30/23 12:42 Nasal B. parapertussis DNA (PCR) NOT DETECTED 10/30/23 12:42 Nasal Coronavir 229E PCR NOT DETECTED 10/30/23 12:42 Nasal Coronavir HKU1 PCR NOT DETECTED 10/30/23 12:42 Nasal Coronavir NL63 PCR NOT DETECTED 10/30/23 12:42 Nasal Coronavir OC43 PCR NOT DETECTED 10/30/23 12:42 Nasal Enterovir/Rhinovir PCR NOT DETECTED 10/30/23 12:42 Nasal Influ A H1 2009 PCR DETECTED A 10/30/23 12:42 Nasal Influenza B PCR NOT DETECTED 10/30/23 12:42 Nasal Influenza A PCR NOT DETECTED 10/25/23 11:49 Nasal Parainfluen 1 PCR NOT DETECTED 10/30/23 12:42 Nasal Parainfluen 2 PCR NOT DETECTED 10/30/23 12:42 Nasal Parainfluen 3 PCR NOT DETECTED 10/30/23 12:42 Nasal Parainfluen 4 PCR NOT DETECTED 10/30/23 12:42 Nasal RSV (PCR) NOT DETECTED 10/30/23 12:42 Nasal Screen MRSA (PCR) NEGATIVE (NEGATIVE) 10/25/23 14:00 Nasal B.pertussis DNA PCR NOT DETECTED 10/30/23 12:42 Nasal C.pneumoniae (PCR) NOT DETECTED 10/30/23 12:42 David Human Metapneumo PCR NOT DETECTED 10/30/23 12:42 Nasal M.pneumoniae (PCR) NOT DETECTED 10/30/23 12:42 Nasal SARS-CoV-2 (PCR) NOT DETECTED 10/30/23 12:42 Stl C. diff Tox B Gene NEGATIVE (NEGATIVE) 10/31/23 Unknown Urine Opiates Screen NEGATIVE (NEGATIVE) 10/25/23 05:58 Ur Buprenorphine Scrn NEGATIVE (NEGATIVE) 10/25/23 05:58 Ur Oxycodone Screen NEGATIVE (NEGATIVE) 10/25/23 05:58 Urine Methadone Screen NEGATIVE (NEGATIVE) 10/25/23 05:58 Ur Barbiturates Screen NEGATIVE (NEGATIVE) 10/25/23 05:58 Ur Tricyclics Screen NEGATIVE (NEGATIVE) 10/25/23 05:58 Ur Phencyclidine Scrn NEGATIVE (NEGATIVE) 10/25/23 05:58 Ur Amphetamine Screen NEGATIVE (NEGATIVE) 10/25/23 05:58 U Methamphetamines Scrn NEGATIVE (NEGATIVE) 10/25/23 05:58 U Benzodiazepines Scrn POSITIVE (NEGATIVE) H 10/25/23 05:58 Urine Cocaine Screen NEGATIVE (NEGATIVE) 10/25/23 05:58 U Cannabinoids Screen NEGATIVE (NEGATIVE) 10/25/23 05:58 Ur Drug Screen Comment CUTOFF CONC BELOW: 10/25/23 05:58 Ethyl Alcohol < 10.0 mg/dL 10/25/23 05:21 Serum Ketones SMALL (NEGATIVE) H 10/26/23 07:30
[2023-11-03 05:29] LABS: BASOPHILS % (AUTO) 0.6 %; EOSINOPHILS # (AUTO) 0.1 10^3/uL (0.0-0.7); EOSINOPHILS % (AUTO) 2.3 %; HCT - HEMATOCRIT 34.6 % (37.0-47.0); HGB - HEMOGLOBIN 10.7 g/dL (12.0-16.0); LYMPHOCYTES # (AUTO) 2.7 10^3/uL (1.5-3.5); LYMPHOCYTES % (AUTO) 52.3 %; MEAN CORPUSCULAR HEMOGLOBIN 27.2 pg (27.0-31.0); MEAN CORPUSCULAR HGB CONC 30.9 g/dL (32.0-36.0); MEAN CORPUSCULAR VOLUME 87.8 fL (81.0-99.0); MEAN PLATELET VOLUME 11.3 fL (7.9-10.8); MONOCYTES # (AUTO) 0.6 10^3/uL (0.0-1.0); MONOCYTES % (AUTO) 11.1 %; NEUTROPHILS # (AUTO) 1.7 10^3/uL (1.5-6.6); NEUTROPHILS % (AUTO) 33.3 %; PLT - PLATELET COUNT 249 10^3/uL (130-450); RED BLOOD COUNT 3.94 10^6/uL (4.20-5.40); RED CELL DISTRIBUTION WIDTH 14.2 % (12.0-15.0); WHITE BLOOD COUNT 5.1 x10^3/uL (4.8-10.8)
[2023-11-03 06:11] LABS: CREATININE 0.5 mg/dL (0.6-1.3); MAGNESIUM 1.7 mg/dL (1.7-2.3); POTASSIUM 4.2 mmol/L (3.5-4.5)
[2023-11-03 07:08] LABS: PLATELET MORPHOLOGY RARE GIANT PLATELETS (NORMAL)
[2023-11-03 07:09] LABS: DIFFERENTIAL COMMENT MANUAL=AUTO DIFF; PLATELET ESTIMATE, MANUAL NORMAL (130-450,000) (NORMAL)
--- NOTE | 2023-11-03 12:12 | PROVIDER PROGRESS NOTE ---
Assessment/Plan - Problem List (1) UTI (urinary tract infection) Assessment/Plan: Elev WBC at time of admission may have been from demargination from DKA or from her infection. She was able to communicate that she had pain with urination and back pain. The adm U/A was abn but that urine culture only grew yeast. We switched therapy 10/26 from levofloxacin to fluconazole 200 mg orally and planning that for 2 weeks. QTc was checked. On 10/30 she spiked a fever of 38.2C. We obtained blood cultures x 2, spt cx ordered, and ordered a UA. The UA came back showing many bacteria and many white blood cells and nitrates, therefore she had an undertreated UTI, as the most likely cause of the fever. The new urine cx again showed yeast growth. All her bld cx are neg to date Plan: Because the new U/A indicated many bacteria, I started her on empiric Ceftriaxone. I plan on giving her an empiric 5 day course of antibx. A stop date has been placed. Cont Fluconazole 200 mg PO qd as well. The stop date will be 11/09/23, it was entered. (2) TIA Assessment/Plan: IMPROVED For about 4 days she was sleepy, minimally communicative and when touched or spoken to, she started crying tears and screamed when crying. 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 And we suspected she was altered due to DKA, her UTI, and alcohol use with withdrawal. Then on 10/30 she had R arm and leg muscle weakness and a brain MRI was done. It did not show a new stroke Then on 10/31 she became awake, alert, speaking in sentences, able to feed herself and even support herself with both arms (when she fell on 10/31). Therefore she had a TIA. We checked her lipid panel and she is at LDL goal, as per guidelines Plan: Diet changed to soft mechanical with thin liquids and she was seen by ST and was advanced to soft when she awoke more Cont on daily ASA PT and OT to continue and disposition will be to SNF for rehab (3) Fall during current hospitalization Impression: On 10/31 pt was alert enough to work with PT and OT. She stood and walked to chair and was left sitting in chair w/ chair alarm on. Our SW heard her yelling for help, entered room and found her between bed and chair, supporting herself just above the floor with elbows and forearms, one arm on chair rail and other arm on bed mattress. She was helped down to the ground and I was contacted. The chair alarm had not alarmed, it was found to be defective. I came in and examined her then: she was c/o pain of buttocks, no other spot. She had not fallen and had not hit her head. She was neurologically intact. Xrays of pelvis and B hips ordered>> these were neg for trauma. Today 11/03, she said she was "dizzy for a minute when got up". Orthostatic VS were checked and were normal. Plan: Cont to monitor orthostatic VS Cont with PT and OT and up with assist (4) Diarrhea Assessment/Plan: IMPROVING Diarrhea started after adm. C. diff stool test came back neg The patient would have 7 liquid BMs/d>> down to 2/d most recently, but they are still "loose". Plan: Will give scheduled Metamucil Cont prn Imodium (5) Alcohol use Impression: Daughter stated she drinks 16 oz of vodka daily. Last drink was 10/23/23 per daughter, however unable to verify this with patient. Her CIWA has been scoring 8 today. Toxicology screen upon admission was also positive for benzodiazepines. I have stopped her CIWA protocol Plan: Continue home Venlafaxine Cont supplemental thiamine, multivitamin ordered (6) DM, type 2 Poorly controlled DM with an A1c of 9.7. Estimated average glucose is 232. We learned she was not picking up her insulin regularly. Aslo, her alcohol abuse is adding to elevated serum glu levels Plan: Cont long acting insulin, cont sliding scale with prn SSI, cancel mealtime Insulin. I adjusted all doses down slightly, based on low POC glu results Cont fingerstick checks, DM diet and hypoglycemia protocol (7) Aortic stenosis Impression: She has a systolic murmur best heard at upper sternal border. An Echo was done and confirmed , mild in degree Plan: She will need follow up with Cardiology (8) Electrolyte abnornality Impression: She develops low potassium and low magnesium. 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 Per our pharmacy, she is on lantus and humalog, however this was last filled at the pharmacy in July 2023 (4 mos ago). Also possibly her UTI or alcohol abuse, SGLT-2 inhibitors, could be triggering DKA. With resolution of acidosis, her Insulin drip was stopped on 10/26 and she was transferred out of ICU yesterday 10/27 Plan: Cont fingerstick checks, long acting and sliding scale Insulin coverage, DM diet and hypoglycemia protocol - Current Meds Current Meds: Current Medications Generic Name Dose Route Start Last Admin Trade Name Freq PRN Reason Stop Dose Admin Acetaminophen 650 mg 10/25/23 12:21 11/01/23 12:33 Acetaminophen 325 Mg Tablet PO 650 mg Q4HR PRN Administration Pain 1 to 4, or Fever Aspirin 81 mg 11/02/23 09:00 11/03/23 08:11 Aspirin Ec 81 Mg Tablet PO 81 mg DAILY CURTIS Administration Enoxaparin Sodium 40 mg 10/26/23 09:00 11/03/23 08:12 Enoxaparin 40 Mg/0.4 Ml Syringe SUBQ 40 mg DAILY CURTIS Administration Fluconazole 200 mg 10/31/23 09:00 11/03/23 08:12 Fluconazole 100 Mg Tablet PO 11/10/23 00:01 200 mg DAILY CURTIS Administration Ceftriaxone Sodium 1 gm/ 100 mls @ 200 mls/hr 10/30/23 17:35 11/03/23 08:12 Sodium Chloride IV 11/04/23 00:01 200 mls/hr DAILY CURTIS Administration Insulin Glargine-yfgn 25 unit 11/02/23 10:05 11/03/23 08:15 Insulin Glargine-Yfgn 300 Unit/3 Ml Pen SUBQ 25 unit DAILY CURTIS Administration Insulin Glargine-yfgn 2 unit 11/02/23 21:00 11/02/23 20:39 Insulin Glargine-Yfgn 300 Unit/3 Ml Pen SUBQ 2 unit QPM CURTIS Administration Insulin Human Lispro 1 - 9 unit 10/30/23 08:00 11/03/23 11:51 Insulin Lispro 300 Unit/3 Ml Pen SUBQ 1 unit 0800,1200,1700,2100 CURTIS Administration Protocol Insulin Human Lispro 2 unit 11/02/23 12:00 11/03/23 11:51 Insulin Lispro 300 Unit/3 Ml Pen SUBQ 2 unit TIDWM CURTIS Administration Protocol Lactobacillus Rhamnosus 1 cap 10/31/23 12:00 11/03/23 11:53 Lactobacillus Rhamnosus Gg Capsule PO 1 cap 1200 CURTIS Administration Levothyroxine Sodium 25 mcg 10/30/23 07:00 11/03/23 07:18 Levothyroxine 25 Mcg Tablet PO 25 mcg QDAC CURTIS Administration Magnesium Oxide 400 mg 11/02/23 12:00 11/03/23 08:11 Magnesium Oxide 400 Mg Tablet PO 400 mg DAILYWM CURTIS Administration Multi-Ingredient Ointment 1 applic 10/29/23 21:14 11/02/23 05:39 Zinc Oxide 20% Oint 30 Gm Tube TOP 1 applic PRN PRN Administration Skin Care Ondansetron HCl 4 mg 10/25/23 12:21 10/31/23 17:21 Ondansetron Odt 4 Mg Tablet TL 4 mg Q6HR PRN Administration Nausea / Vomiting Oxycodone HCl 5 mg 10/25/23 12:21 11/02/23 06:47 Oxycodone 5 Mg Tablet PO 5 mg Q4HR PRN Administration Pain 5 to 7 Pantoprazole Sodium 40 mg 10/26/23 07:00 11/03/23 07:18 Pantoprazole 40 Mg Tablet PO 40 mg QDAC CURTIS Administration Polyethylene Glycol 17 gm 10/27/23 09:00 11/03/23 08:18 Polyethylene Glycol 3350 17 Gm Packet PO 17 gm DAILY CURTIS Administration Potassium Chloride 20 meq 10/28/23 10:16 11/03/23 08:12 Potassium Chloride 10 Meq Capsule PO 20 meq DAILYWM CURTIS Administration Multivit/Folic Acid/Iron 1 tab 10/26/23 09:00 11/03/23 08:11 Vitamin Tablet PO 1 tab DAILY CURTIS Administration Sodium Chloride 10 ml 10/25/23 17:00 11/03/23 11:53 Sodium Chloride Flush 0.9% 10 Ml Syringe IVP 10 ml 0100,0900,1700 CURTIS Administration Sodium Chloride 10 ml 10/25/23 12:21 11/03/23 07:22 Sodium Chloride Flush 0.9% 10 Ml Syringe IVP 10 ml PRN PRN Administration NEEDED PER PROVIDER ORDERS Thiamine HCl 100 mg 10/26/23 09:00 11/03/23 08:11 Thiamine 100 Mg Tablet PO 100 mg DAILY CURTIS Administration Venlafaxine HCl 75 mg 10/29/23 12:00 11/03/23 08:11 Venlafaxine Er 75 Mg Capsule PO 75 mg BID CURTIS Administration - Lab Result Fish Bone Diagrams: 11/03/23 04:59 11/03/23 04:59 - Additional Planning My Orders: My Active Orders 11/02/23 12:00 Insulin Lispro [Humalog Kwikpen U-100] 2 unit SUBQ TIDWM Magnesium Oxide [Mag Ox] 400 mg PO DAILYWM 11/02/23 21:00 Insulin Glargine-Yfgn [Semglee] 2 unit SUBQ QPM 11/03/23 07:56 Miscellaenous Nursing Order [RC] QSWYFT 11/03/23 10:15 Orthostatic [Vital Signs - Orthostatic] [RC] QSWYFT 11/03/23 13:00 Psyllium [Metamucil] 1 packet PO DAILY 11/04/23 05:00 BMP - BASIC METABOLIC PANEL [CHEM] DAILYLAB CBC - COMP BLD CT W/AUTO DIFF [HEME] DAILYLAB MAGNESIUM [CHEM] DAILYLAB 11/05/23 05:00 BMP - BASIC METABOLIC PANEL [CHEM] DAILYLAB CBC - COMP BLD CT W/AUTO DIFF [HEME] DAILYLAB Subjective - Subjective Patient Reports: No Complaints, Dizzines (when first stood today) Objective Vital Signs: Vital Signs - 24 hr 11/02/23 11/02/23 11/02/23 15:32 19:52 23:10 Temperature 36.6 C 36.6 C 36.6 C Heart Rate [ 68 86 74 Brachial] Respiratory 16 16 16 Rate Blood Pressure 118/57 L 141/61 H 154/64 H [Right Brachial artery] O2 Saturation 97 96 94 If not protocol 2 : Oxygen Flow, liters/minute 11/03/23 08:12 Temperature 36.7 C Heart Rate [ 75 Brachial] Respiratory 20 Rate Blood Pressure 146/73 H [Right Brachial artery] O2 Saturation 90 L If not protocol : Oxygen Flow, liters/minute Oxygen O2 Source Room air I&O (Last 24 Hrs): Intake and Output Totals x24h 11/01/23 11/02/23 11/03/23 23:59 23:59 23:59 Intake Total 580 690 340 Output Total 400 Balance 180 690 340 General: Alert, Oriented x3 HEENT: EOMI, Mucous membr. moist/pink Neck: Supple, No JVD Neuro: Alert, Non Focal Cardiovascular: Regular rate, Other (syst murmur) Respiratory: No respiratory distress, Breath sounds nml Abdomen: Normal bowel sounds, Soft, No tenderness Extremities: No clubbing, No edema, No tenderness/swelling - Results Results: Laboratory Results WBC 5.1 x10^3/uL (4.8-10.8) 11/03/23 04:59 RBC 3.94 10^6/uL (4.20-5.40) L 11/03/23 04:59 Hgb 10.7 g/dL (12.0-16.0) L 11/03/23 04:59 Hct 34.6 % (37.0-47.0) L 11/03/23 04:59 MCV 87.8 fL (81.0-99.0) 11/03/23 04:59 MCH 27.2 pg (27.0-31.0) 11/03/23 04:59 MCHC 30.9 g/dL (32.0-36.0) L 11/03/23 04:59 RDW 14.2 % (12.0-15.0) 11/03/23 04:59 Plt Count 249 10^3/uL (130-450) 11/03/23 04:59 MPV 11.3 fL (7.9-10.8) H 11/03/23 04:59 Neut # (Auto) 1.7 10^3/uL (1.5-6.6) 11/03/23 04:59 Lymph # (Auto) 2.7 10^3/uL (1.5-3.5) 11/03/23 04:59 [place]oun # (Auto) 0.6 10^3/uL (0.0-1.0) 11/03/23 04:59 Eos # (Auto) 0.1 10^3/uL (0.0-0.7) 11/03/23 04:59 Baso # (Auto) 0.0 10^3/uL (0.0-0.1) 11/03/23 04:59 Absolute Nucleated RBC 0.00 x10^3/uL 11/03/23 04:59 Band Neuts % (Manual) Not Reportable 11/03/23 04:59 Abnorm Lymph % (Manual) Not Reportable 11/03/23 04:59 Nucleated RBC % 0.0 /100WBC 11/03/23 04:59 Neutrophils # (Manual) Not Reportable 11/03/23 04:59 Lymphocytes # (Manual) Not Reportable 11/03/23 04:59 Monocytes # (Manual) Not Reportable 11/03/23 04:59 Eosinophils # (Manual) Not Reportable 11/03/23 04:59 Basophils # (Manual) Not Reportable 11/03/23 04:59 Differential Comment MANUAL=AUTO DIFF 11/03/23 04:59 Platelet Estimate NORMAL (130-450,000) (NORMAL) 11/03/23 04:59 Platelet Morphology RARE GIANT PLATELETS (NORMAL) 11/03/23 04:59 VBG pH 7.306 (7.31-7.41) L 10/29/23 05:30 VBG pCO2 32.3 mmHg (41-51) L 10/26/23 06:12 VBG pO2 48.4 mmHg (25-47) H 10/26/23 06:12 VBG HCO3 14.2 mmol/L (23-28) L 10/26/23 06:12 VBG Total CO2 15.2 mmol/L (24-29) L 10/26/23 06:12 VBG O2 Saturation 86.6 % (60-80) H 10/26/23 06:12 VBG Base Excess -11.7 mmol/L (-2 - +2) L 10/26/23 06:12 Ionized Calcium 1.09 mmol/L (1.15-1.33) L 10/29/23 05:30 Sodium 138 mmol/L (135-145) 11/03/23 04:59 Potassium 4.2 mmol/L (3.5-4.5) 11/03/23 04:59 Chloride 101 mmol/L (101-111) 11/03/23 04:59 Carbon Dioxide 30 mmol/L (21-32) 11/03/23 04:59 Anion Gap 7.0 (6-13) 11/03/23 04:59 BUN 9 mg/dL (6-20) 11/03/23 04:59 Creatinine 0.5 mg/dL (0.6-1.3) L 11/03/23 04:59 Estimated GFR (MDRD) 120 (>89) 11/03/23 04:59 Glucose 112 mg/dL (74-104) H 11/03/23 04:59 POC Whole Bld Glucose 178 mg/dL (70 - 100) H 11/03/23 11:16 Estimat Average Glucose 232 mg/dL (70-100) H 10/27/23 04:29 Hemoglobin A1c % 9.7 % (4.27-6.07) H 10/27/23 04:29 Calcium 9.0 mg/dL (8.5-10.3) 11/03/23 04:59 Phosphorus 3.8 mg/dL (2.5-5.0) 10/31/23 05:24 Magnesium 1.7 mg/dL (1.7-2.3) 11/03/23 04:59 Total Bilirubin 0.3 mg/dL (0.2-1.0) 10/25/23 05:21 AST 10 IU/L (10-42) 10/25/23 05:21 ALT 9 IU/L (10-60) L 10/25/23 05:21 Alkaline Phosphatase 60 IU/L (42-121) 10/25/23 05:21 Troponin I High Sens 4.9 ng/L (2.3-14.8) 10/25/23 11:15 Total Protein 7.1 g/dL (6.4-8.9) 10/25/23 05:21 Albumin 4.5 g/dL (3.2-5.5) 10/25/23 05:21 Globulin 2.6 g/dL (2.1-4.2) 10/25/23 05:21 Albumin/Globulin Ratio 1.7 (1.0-2.2) 10/25/23 05:21 Triglycerides 255 mg/dL (48-352) 11/02/23 05:15 Cholesterol 132 mg/dL (-200) 11/02/23 05:15 LDL Cholesterol, Calc 59 mg/dL (-129) 11/02/23 05:15 VLDL Cholesterol 51 mg/dL 11/02/23 05:15 HDL Cholesterol 22 mg/dL (60-) L 11/02/23 05:15 LDL/HDL Ratio 2.7 (<4.4) 11/02/23 05:15 Cholesterol/HDL Ratio 6.0 (<4.4) 11/02/23 05:15 Lipase < 10 U/L (11-82) L 10/25/23 05:21 Urine Color LIGHT YELLOW 10/30/23 14:45 Urine Clarity TURBID (CLEAR) 10/30/23 14:45 Urine pH 5.5 PH (5.0-7.5) 10/30/23 14:45 Ur Specific [place] >=1.030 (1.002-1.030) H 10/30/23 14:45 Urine Protein 30 mg/dL (NEGATIVE) H 10/30/23 14:45 Urine Glucose (UA) >=1000 mg/dL (NEGATIVE) H 10/30/23 14:45 Urine Ketones NEGATIVE mg/dL (NEGATIVE) 10/30/23 14:45 Urine Occult Blood LARGE (NEGATIVE) H 10/30/23 14:45 Urine Nitrite NEGATIVE (NEGATIVE) 10/30/23 14:45 Urine Bilirubin NEGATIVE (NEGATIVE) 10/30/23 14:45 Urine Urobilinogen 0.2 (NORMAL) E.U./dL (NORMAL) 10/30/23 14:45 Ur Leukocyte Esterase SMALL (NEGATIVE) H 10/30/23 14:45 Urine RBC TNTC /HPF (0-5) H 10/30/23 14:45 Urine WBC >25 /HPF (0-5) H 10/30/23 14:45 Urine WBC Clumps PRESENT 10/30/23 14:45 Ur Squamous Epith Cells NONE SEEN (<= Few) 10/30/23 14:45 Urine Bacteria Many /HPF (None Seen) H 10/30/23 14:45 Urine Yeast PRESENT 10/30/23 14:45 Ur Microscopic Review INDICATED 10/25/23 16:40 Urine Culture Comments INDICATED 10/30/23 14:45 Nasal Adenovirus (PCR) NOT DETECTED 10/30/23 12:42 Nasal B. parapertussis DNA (PCR) NOT DETECTED 10/30/23 12:42 Nasal Coronavir 229E PCR NOT DETECTED 10/30/23 12:42 Nasal Coronavir HKU1 PCR NOT DETECTED 10/30/23 12:42 Nasal Coronavir NL63 PCR NOT DETECTED 10/30/23 12:42 Nasal Coronavir OC43 PCR NOT DETECTED 10/30/23 12:42 Nasal Enterovir/Rhinovir PCR NOT DETECTED 10/30/23 12:42 Nasal Influ A H1 2009 PCR DETECTED A 10/30/23 12:42 Nasal Influenza B PCR NOT DETECTED 10/30/23 12:42 Nasal Influenza A PCR NOT DETECTED 10/25/23 11:49 Nasal Parainfluen 1 PCR NOT DETECTED 10/30/23 12:42 Nasal Parainfluen 2 PCR NOT DETECTED 10/30/23 12:42 Nasal Parainfluen 3 PCR NOT DETECTED 10/30/23 12:42 Nasal Parainfluen 4 PCR NOT DETECTED 10/30/23 12:42 Nasal RSV (PCR) NOT DETECTED 10/30/23 12:42 Nasal Screen MRSA (PCR) NEGATIVE (NEGATIVE) 10/25/23 14:00 Nasal B.pertussis DNA PCR NOT DETECTED 10/30/23 12:42 Nasal C.pneumoniae (PCR) NOT DETECTED 10/30/23 12:42 David Human Metapneumo PCR NOT DETECTED 10/30/23 12:42 Nasal M.pneumoniae (PCR) NOT DETECTED 10/30/23 12:42 Nasal SARS-CoV-2 (PCR) NOT DETECTED 10/30/23 12:42 Stl C. diff Tox B Gene NEGATIVE (NEGATIVE) 10/31/23 Unknown Urine Opiates Screen NEGATIVE (NEGATIVE) 10/25/23 05:58 Ur Buprenorphine Scrn NEGATIVE (NEGATIVE) 10/25/23 05:58 Ur Oxycodone Screen NEGATIVE (NEGATIVE) 10/25/23 05:58 Urine Methadone Screen NEGATIVE (NEGATIVE) 10/25/23 05:58 Ur Barbiturates Screen NEGATIVE (NEGATIVE) 10/25/23 05:58 Ur Tricyclics Screen NEGATIVE (NEGATIVE) 10/25/23 05:58 Ur Phencyclidine Scrn NEGATIVE (NEGATIVE) 10/25/23 05:58 Ur Amphetamine Screen NEGATIVE (NEGATIVE) 10/25/23 05:58 U Methamphetamines Scrn NEGATIVE (NEGATIVE) 10/25/23 05:58 U Benzodiazepines Scrn POSITIVE (NEGATIVE) H 10/25/23 05:58 Urine Cocaine Screen NEGATIVE (NEGATIVE) 10/25/23 05:58 U Cannabinoids Screen NEGATIVE (NEGATIVE) 10/25/23 05:58 Ur Drug Screen Comment CUTOFF CONC BELOW: 10/25/23 05:58 Ethyl Alcohol < 10.0 mg/dL 10/25/23 05:21 Serum Ketones SMALL (NEGATIVE) H 10/26/23 07:30
[2023-11-03] MEDS: PSYLLIUM PACKET PO SCH (17:12)
[2023-11-03] MEDS: BACITRACIN ZINC OINT 1 PACKET TOP PRN (21:43)
[2023-11-04 06:07] LABS: BASOPHILS % (AUTO) 0.4 %; EOSINOPHILS % (AUTO) 2.4 %; HGB - HEMOGLOBIN 10.8 g/dL (12.0-16.0); LYMPHOCYTES % (AUTO) 49.5 %; MEAN CORPUSCULAR HEMOGLOBIN 27.1 pg (27.0-31.0); MEAN CORPUSCULAR HGB CONC 31.8 g/dL (32.0-36.0); MEAN CORPUSCULAR VOLUME 85.2 fL (81.0-99.0); MEAN PLATELET VOLUME 10.8 fL (7.9-10.8); NEUTROPHILS % (AUTO) 35.3 %; PLT - PLATELET COUNT 281 10^3/uL (130-450); RED BLOOD COUNT 3.99 10^6/uL (4.20-5.40); RED CELL DISTRIBUTION WIDTH 14.3 % (12.0-15.0); WHITE BLOOD COUNT 5.1 x10^3/uL (4.8-10.8)
[2023-11-04 06:15] LABS: ABNORMAL LYMPHS % (MANUAL) 0 %; BAND NEUTROPHILS % (MANUAL) 0 %
[2023-11-04 06:17] LABS: CALCIUM 9.2 mg/dL (8.5-10.3); CREATININE 0.6 mg/dL (0.6-1.3); MAGNESIUM 1.5 mg/dL (1.7-2.3); POTASSIUM 4.2 mmol/L (3.5-4.5)
[2023-11-04 06:54] LABS: BASOPHILS # (MANUAL) 0.1 10^3/uL (0-0.1); BASOPHILS % (MANUAL) 1 %; DIFFERENTIAL COMMENT MANUAL DIFFERENTIAL; EOSINOPHILS # (MANUAL) 0.2 10^3/uL (0-0.7); LYMPHOCYTES # (MANUAL) 2.1 10^3/uL (1.5-3.5); LYMPHOCYTES % (MANUAL) 37 %; MONOCYTES # (MANUAL) 0.4 10^3/uL (0.0-1.0); NEUTROPHILS # (MANUAL) 2.4 10^3/uL (1.5-6.6); PLATELET ESTIMATE, MANUAL NORMAL (130-450,000) (NORMAL); RBC MORPHOLOGY (MULTIPLE) NORMAL APPEARANCE (NORMAL); REACTIVE LYMPHS % (MANUAL) 4 %
--- NOTE | 2023-11-04 23:03 | PROVIDER PROGRESS NOTE ---
Assessment/Plan - Problem List (1) UTI (urinary tract infection) Assessment/Plan: Urine culture grew out yeast. She has completed course of treatment with fluconazole and antiobiotics. (2) TIA Assessment/Plan: IMPROVED For about 4 days she was sleepy, minimally communicative and when touched or spoken to, she started crying tears and screamed when crying. 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 And we suspected she was altered due to DKA, her UTI, and alcohol use with withdrawal. Then on 10/30 she had R arm and leg muscle weakness and a brain MRI was done. It did not show a new stroke Then on 10/31 she became awake, alert, speaking in sentences, able to feed herself and even support herself with both arms (when she fell on 10/31). Therefore she had a TIA. We checked her lipid panel and she is at LDL goal, as per guidelines Plan: Symptoms resolved (3) Fall during current hospitalization Impression: On 10/31 pt was alert enough to work with PT and OT. She stood and walked to chair and was left sitting in chair w/ chair alarm on. Our SW heard her yelling for help, entered room and found her between bed and chair, supporting herself just above the floor with elbows and forearms, one arm on chair rail and other arm on bed mattress. She was helped down to the ground and I was contacted. The chair alarm had not alarmed, it was found to be defective. I came in and examined her then: she was c/o pain of buttocks, no other spot. She had not fallen and had not hit her head. She was neurologically intact. Xrays of pelvis and B hips ordered>> these were neg for trauma. Today 11/03, she said she was "dizzy for a minute when got up". Orthostatic VS were checked and were normal. Plan: Continue PT for balance (4) Diarrhea Assessment/Plan: Resolved but patient states she has problems intermittently. Plan: Will give scheduled Metamucil Cont prn Imodium (5) Alcohol use Impression: Daughter stated she drinks 16 oz of vodka daily. Last drink was 10/23/23 per daughter, however unable to verify this with patient. Her CIWA has been scoring 8 today. Toxicology screen upon admission was also positive for benzodiazepines. l Plan: Continue home Venlafaxine Cont supplemental thiamine, multivitamin ordered (6) DM, type 2 Poorly controlled DM with an A1c of 9.7. Estimated average glucose is 232. We learned she was not picking up her insulin regularly. Aslo, her alcohol abuse is adding to elevated serum glu levels Plan: Cont long acting insulin, cont sliding scale with prn SSI, cancel mealtime Insulin. I adjusted all doses down slightly, based on low POC glu results (7) Aortic stenosis Impression: She has a systolic murmur best heard at upper sternal border. An Echo was done and confirmed , mild in degree Plan: She will need follow up with Cardiology (8) Electrolyte abnornality Impression: Continue to monitor and replace as needed. Plan: (9) DKA, type 2 Impression: RESOLVED Most likely etiology is insulin noncompliance as it seems she is unable to pick up attendant medications consistently. Per our pharmacy, she is on lantus and humalog, however this was last filled at the pharmacy in July 2023 (4 mos ago). Also possibly her UTI or alcohol abuse, SGLT-2 inhibitors, could be triggering DKA. With resolution of acidosis, her Insulin drip was stopped on 10/26 and she was transferred out of ICU yesterday 10/27 Plan: Cont fingerstick checks, long acting and sliding scale Insulin coverage, DM diet and hypoglycemia protocol - Current Meds Current Meds: Current Medications Generic Name Dose Route Start Last Admin Trade Name Freq PRN Reason Stop Dose Admin Acetaminophen 650 mg 10/25/23 12:21 11/03/23 21:42 Acetaminophen 325 Mg Tablet PO 650 mg Q4HR PRN Administration Pain 1 to 4, or Fever Aspirin 81 mg 11/02/23 09:00 11/04/23 07:50 Aspirin Ec 81 Mg Tablet PO 81 mg DAILY [facility] Administration Bacitracin 1 packet 11/03/23 20:59 11/03/23 21:43 Bacitracin Zinc Oint 1 Packet TOP 1 packet PRN PRN Administration Skin Care Enoxaparin Sodium 40 mg 10/26/23 09:00 11/04/23 07:50 Enoxaparin 40 Mg/0.4 Ml Syringe SUBQ 40 mg DAILY [facility] Administration Fluconazole 200 mg 10/31/23 09:00 11/04/23 07:50 Fluconazole 100 Mg Tablet PO 11/10/23 00:01 200 mg DAILY [facility] Administration Insulin Glargine-yfgn 25 unit 11/02/23 10:05 11/04/23 07:52 Insulin Glargine-Yfgn 300 Unit/3 Ml Pen SUBQ 25 unit DAILY [facility] Administration Insulin Glargine-yfgn 2 unit 11/02/23 21:00 11/04/23 20:36 Insulin Glargine-Yfgn 300 Unit/3 Ml Pen SUBQ 2 unit QPM [facility] Administration Insulin Human Lispro 1 - 9 unit 10/30/23 08:00 11/04/23 20:35 Insulin Lispro 300 Unit/3 Ml Pen SUBQ 3 unit 0800,1200,1700,2100 [facility] Administration Protocol Insulin Human Lispro 2 unit 11/02/23 12:00 11/04/23 17:07 Insulin Lispro 300 Unit/3 Ml Pen SUBQ 2 unit TIDWM [facility] Administration Protocol Lactobacillus Rhamnosus 1 cap 10/31/23 12:00 11/04/23 11:54 Lactobacillus Rhamnosus Gg Capsule PO 1 cap 1200 [facility] Administration Levothyroxine Sodium 25 mcg 10/30/23 07:00 11/04/23 05:34 Levothyroxine 25 Mcg Tablet PO 25 mcg QDAC [facility] Administration Magnesium Oxide 400 mg 11/02/23 12:00 11/04/23 07:49 Magnesium Oxide 400 Mg Tablet PO 400 mg DAILYWM [facility] Administration Multi-Ingredient Ointment 1 applic 10/29/23 21:14 11/04/23 07:50 Zinc Oxide 20% Oint 30 Gm Tube TOP 1 applic PRN PRN Administration Skin Care Ondansetron HCl 4 mg 10/25/23 12:21 10/31/23 17:21 Ondansetron Odt 4 Mg Tablet TL 4 mg Q6HR PRN Administration Nausea / Vomiting Oxycodone HCl 5 mg 10/25/23 12:21 11/02/23 06:47 Oxycodone 5 Mg Tablet PO 5 mg Q4HR PRN Administration Pain 5 to 7 Pantoprazole Sodium 40 mg 10/26/23 07:00 11/04/23 05:33 Pantoprazole 40 Mg Tablet PO 40 mg QDAC [facility] Administration Polyethylene Glycol 17 gm 10/27/23 09:00 11/04/23 07:51 Polyethylene Glycol 3350 17 Gm Packet PO Not Given DAILY [facility] Potassium Chloride 20 meq 10/28/23 10:16 11/04/23 08:08 Potassium Chloride 10 Meq Capsule PO Not Given DAILYWM [facility] Multivit/Folic Acid/Iron 1 tab 10/26/23 09:00 11/04/23 07:49 Vitamin Tablet PO 1 tab DAILY [facility] Administration Psyllium Hydrophilic Mucilloid 1 packet 11/03/23 13:00 11/04/23 11:30 Psyllium Packet PO 1 packet DAILY [facility] Administration Sodium Chloride 10 ml 10/25/23 17:00 11/04/23 17:07 Sodium Chloride Flush 0.9% 10 Ml Syringe IVP 10 ml 0100,0900,1700 [facility] Administration Sodium Chloride 10 ml 10/25/23 12:21 11/03/23 07:22 Sodium Chloride Flush 0.9% 10 Ml Syringe IVP 10 ml PRN PRN Administration NEEDED PER PROVIDER ORDERS Thiamine HCl 100 mg 10/26/23 09:00 11/04/23 07:50 Thiamine 100 Mg Tablet PO 100 mg DAILY [facility] Administration Venlafaxine HCl 75 mg 10/29/23 12:00 11/04/23 20:41 Venlafaxine Er 75 Mg Capsule PO 75 mg BID [facility] Administration - Lab Result Fish Bone Diagrams: 11/05/23 05:17 11/05/23 05:17 Subjective - Subjective Patient Reports: Other (Alert. Following commands. No complaints at this time.) Objective Vital Signs: Vital Signs - 24 hr 11/03/23 11/04/23 11/04/23 23:41 08:58 15:36 Temperature 37.0 C 36.3 C L 36.5 C Heart Rate [ 70 96 74 Brachial] Respiratory 16 18 16 Rate Blood Pressure 152/76 H 142/67 H 156/71 H [Right Brachial artery] O2 Saturation 95 94 94 Oxygen O2 Source Room air I&O (Last 24 Hrs): Intake and Output Totals x24h 11/02/23 11/03/23 11/04/23 23:59 23:59 23:59 Intake Total 690 1340 986 Balance 690 1340 986 General: Alert, Oriented x3 HEENT: Atraumatic Neck: Supple, No JVD, No thyromegaly Neuro: Alert, Non Focal Cardiovascular: Regular rate, Other (Positive S1-S2. No extra heart sounds.) Respiratory: Other (Good air exchange in all lung mosqueda. No wheezing no crackles.) Extremities: No clubbing, No cyanosis Skin: No rashes - Results Results: Laboratory Results WBC 5.1 x10^3/uL (4.8-10.8) 11/04/23 05:26 RBC 3.99 10^6/uL (4.20-5.40) L 11/04/23 05:26 Hgb 10.8 g/dL (12.0-16.0) L 11/04/23 05:26 Hct 34.0 % (37.0-47.0) L 11/04/23 05:26 MCV 85.2 fL (81.0-99.0) 11/04/23 05:26 MCH 27.1 pg (27.0-31.0) 11/04/23 05:26 MCHC 31.8 g/dL (32.0-36.0) L 11/04/23 05:26 RDW 14.3 % (12.0-15.0) 11/04/23 05:26 Plt Count 281 10^3/uL (130-450) 11/04/23 05:26 MPV 10.8 fL (7.9-10.8) 11/04/23 05:26 Neut # (Auto) Not Reportable 11/04/23 05:26 Lymph # (Auto) Not Reportable 11/04/23 05:26 Finney # (Auto) Not Reportable 11/04/23 05:26 Eos # (Auto) Not Reportable 11/04/23 05:26 Baso # (Auto) Not Reportable 11/04/23 05:26 Absolute Nucleated RBC Not Reportable 11/04/23 05:26 Total Counted 100 11/04/23 05:26 Band Neuts % (Manual) 0 % (0-10) 11/04/23 05:26 Reactive Lymphs % (Man) 4 % 11/04/23 05:26 Abnorm Lymph % (Manual) 0 % 11/04/23 05:26 Nucleated RBC % Not Reportable 11/04/23 05:26 Neutrophils # (Manual) 2.4 10^3/uL (1.5-6.6) 11/04/23 05:26 Lymphocytes # (Manual) 2.1 10^3/uL (1.5-3.5) 11/04/23 05:26 Monocytes # (Manual) 0.4 10^3/uL (0.0-1.0) 11/04/23 05:26 Eosinophils # (Manual) 0.2 10^3/uL (0-0.7) 11/04/23 05:26 Basophils # (Manual) 0.1 10^3/uL (0-0.1) 11/04/23 05:26 Differential Comment MANUAL DIFFERENTIAL 11/04/23 05:26 Platelet Estimate NORMAL (130-450,000) (NORMAL) 11/04/23 05:26 Platelet Morphology RARE GIANT PLATELETS (NORMAL) 11/03/23 04:59 RBC Morph Micro Appear NORMAL APPEARANCE (NORMAL) 11/04/23 05:26 VBG pH 7.306 (7.31-7.41) L 10/29/23 05:30 VBG pCO2 32.3 mmHg (41-51) L 10/26/23 06:12 VBG pO2 48.4 mmHg (25-47) H 10/26/23 06:12 VBG HCO3 14.2 mmol/L (23-28) L 10/26/23 06:12 VBG Total CO2 15.2 mmol/L (24-29) L 10/26/23 06:12 VBG O2 Saturation 86.6 % (60-80) H 10/26/23 06:12 VBG Base Excess -11.7 mmol/L (-2 - +2) L 10/26/23 06:12 Ionized Calcium 1.09 mmol/L (1.15-1.33) L 10/29/23 05:30 Sodium 139 mmol/L (135-145) 11/04/23 05:26 Potassium 4.2 mmol/L (3.5-4.5) 11/04/23 05:26 Chloride 101 mmol/L (101-111) 11/04/23 05:26 Carbon Dioxide 30 mmol/L (21-32) 11/04/23 05:26 Anion Gap 8.0 (6-13) 11/04/23 05:26 BUN 9 mg/dL (6-20) 11/04/23 05:26 Creatinine 0.6 mg/dL (0.6-1.3) 11/04/23 05:26 Estimated GFR (MDRD) 97 (>89) 11/04/23 05:26 Glucose 157 mg/dL (74-104) H 11/04/23 05:26 POC Whole Bld Glucose 215 mg/dL (70 - 100) H 11/04/23 20:35 Estimat Average Glucose 232 mg/dL (70-100) H 10/27/23 04:29 Hemoglobin A1c % 9.7 % (4.27-6.07) H 10/27/23 04:29 Calcium 9.2 mg/dL (8.5-10.3) 11/04/23 05:26 Phosphorus 3.8 mg/dL (2.5-5.0) 10/31/23 05:24 Magnesium 1.5 mg/dL (1.7-2.3) L 11/04/23 05:26 Total Bilirubin 0.3 mg/dL (0.2-1.0) 10/25/23 05:21 AST 10 IU/L (10-42) 10/25/23 05:21 ALT 9 IU/L (10-60) L 10/25/23 05:21 Alkaline Phosphatase 60 IU/L (42-121) 10/25/23 05:21 Troponin I High Sens 4.9 ng/L (2.3-14.8) 10/25/23 11:15 Total Protein 7.1 g/dL (6.4-8.9) 10/25/23 05:21 Albumin 4.5 g/dL (3.2-5.5) 10/25/23 05:21 Globulin 2.6 g/dL (2.1-4.2) 10/25/23 05:21 Albumin/Globulin Ratio 1.7 (1.0-2.2) 10/25/23 05:21 Triglycerides 255 mg/dL (48-352) 11/02/23 05:15 Cholesterol 132 mg/dL (-200) 11/02/23 05:15 LDL Cholesterol, Calc 59 mg/dL (-129) 11/02/23 05:15 VLDL Cholesterol 51 mg/dL 11/02/23 05:15 HDL Cholesterol 22 mg/dL (60-) L 11/02/23 05:15 LDL/HDL Ratio 2.7 (<4.4) 11/02/23 05:15 Cholesterol/HDL Ratio 6.0 (<4.4) 11/02/23 05:15 Lipase < 10 U/L (11-82) L 10/25/23 05:21 Urine Color LIGHT YELLOW 10/30/23 14:45 Urine Clarity TURBID (CLEAR) 10/30/23 14:45 Urine pH 5.5 PH (5.0-7.5) 10/30/23 14:45 Ur Specific [place] >=1.030 (1.002-1.030) H 10/30/23 14:45 Urine Protein 30 mg/dL (NEGATIVE) H 10/30/23 14:45 Urine Glucose (UA) >=1000 mg/dL (NEGATIVE) H 10/30/23 14:45 Urine Ketones NEGATIVE mg/dL (NEGATIVE) 10/30/23 14:45 Urine Occult Blood LARGE (NEGATIVE) H 10/30/23 14:45 Urine Nitrite NEGATIVE (NEGATIVE) 10/30/23 14:45 Urine Bilirubin NEGATIVE (NEGATIVE) 10/30/23 14:45 Urine Urobilinogen 0.2 (NORMAL) E.U./dL (NORMAL) 10/30/23 14:45 Ur Leukocyte Esterase SMALL (NEGATIVE) H 10/30/23 14:45 Urine RBC TNTC /HPF (0-5) H 10/30/23 14:45 Urine WBC >25 /HPF (0-5) H 10/30/23 14:45 Urine WBC Clumps PRESENT 10/30/23 14:45 Ur Squamous Epith Cells NONE SEEN (<= Few) 10/30/23 14:45 Urine Bacteria Many /HPF (None Seen) H 10/30/23 14:45 Urine Yeast PRESENT 10/30/23 14:45 Ur Microscopic Review INDICATED 10/25/23 16:40 Urine Culture Comments INDICATED 10/30/23 14:45 Nasal Adenovirus (PCR) NOT DETECTED 10/30/23 12:42 Nasal B. parapertussis DNA (PCR) NOT DETECTED 10/30/23 12:42 Nasal Coronavir 229E PCR NOT DETECTED 10/30/23 12:42 Nasal Coronavir HKU1 PCR NOT DETECTED 10/30/23 12:42 Nasal Coronavir NL63 PCR NOT DETECTED 10/30/23 12:42 Nasal Coronavir OC43 PCR NOT DETECTED 10/30/23 12:42 Nasal Enterovir/Rhinovir PCR NOT DETECTED 10/30/23 12:42 Nasal Influ A H1 2009 PCR DETECTED A 10/30/23 12:42 Nasal Influenza B PCR NOT DETECTED 10/30/23 12:42 Nasal Influenza A PCR NOT DETECTED 10/25/23 11:49 Nasal Parainfluen 1 PCR NOT DETECTED 10/30/23 12:42 Nasal Parainfluen 2 PCR NOT DETECTED 10/30/23 12:42 Nasal Parainfluen 3 PCR NOT DETECTED 10/30/23 12:42 Nasal Parainfluen 4 PCR NOT DETECTED 10/30/23 12:42 Nasal RSV (PCR) NOT DETECTED 10/30/23 12:42 Nasal Screen MRSA (PCR) NEGATIVE (NEGATIVE) 10/25/23 14:00 Nasal B.pertussis DNA PCR NOT DETECTED 10/30/23 12:42 Nasal C.pneumoniae (PCR) NOT DETECTED 10/30/23 12:42 David Human Metapneumo PCR NOT DETECTED 10/30/23 12:42 Nasal M.pneumoniae (PCR) NOT DETECTED 10/30/23 12:42 Nasal SARS-CoV-2 (PCR) NOT DETECTED 10/30/23 12:42 Stl C. diff Tox B Gene NEGATIVE (NEGATIVE) 10/31/23 Unknown Urine Opiates Screen NEGATIVE (NEGATIVE) 10/25/23 05:58 Ur Buprenorphine Scrn NEGATIVE (NEGATIVE) 10/25/23 05:58 Ur Oxycodone Screen NEGATIVE (NEGATIVE) 10/25/23 05:58 Urine Methadone Screen NEGATIVE (NEGATIVE) 10/25/23 05:58 Ur Barbiturates Screen NEGATIVE (NEGATIVE) 10/25/23 05:58 Ur Tricyclics Screen NEGATIVE (NEGATIVE) 10/25/23 05:58 Ur Phencyclidine Scrn NEGATIVE (NEGATIVE) 10/25/23 05:58 Ur Amphetamine Screen NEGATIVE (NEGATIVE) 10/25/23 05:58 U Methamphetamines Scrn NEGATIVE (NEGATIVE) 10/25/23 05:58 U Benzodiazepines Scrn POSITIVE (NEGATIVE) H 10/25/23 05:58 Urine Cocaine Screen NEGATIVE (NEGATIVE) 10/25/23 05:58 U Cannabinoids Screen NEGATIVE (NEGATIVE) 10/25/23 05:58 Ur Drug Screen Comment CUTOFF CONC BELOW: 10/25/23 05:58 Ethyl Alcohol < 10.0 mg/dL 10/25/23 05:21 Serum Ketones SMALL (NEGATIVE) H 10/26/23 07:30 ABX Reporting Has patient been on IV antibiotics over the past 48 hours?: No Current Medications - Current Medications Current Medications: Active Medications Acetaminophen (Acetaminophen 325 Mg Tablet) 650 mg PO Q4HR PRN PRN Reason: Pain 1 to 4, or Fever Last Admin: 11/03/23 21:42 Dose: 650 mg Aspirin (Aspirin Ec 81 Mg Tablet) 81 mg PO DAILY [facility] Last Admin: 11/04/23 07:50 Dose: 81 mg Bacitracin (Bacitracin Zinc Oint 1 Packet) 1 packet TOP PRN PRN PRN Reason: Skin Care Last Admin: 11/03/23 21:43 Dose: 1 packet Enoxaparin Sodium (Enoxaparin 40 Mg/0.4 Ml Syringe) 40 mg SUBQ DAILY [facility] Last Admin: 11/04/23 07:50 Dose: 40 mg Fluconazole (Fluconazole 100 Mg Tablet) 200 mg PO DAILY [facility] Stop: 11/10/23 00:01 Last Admin: 11/04/23 07:50 Dose: 200 mg Insulin Glargine-yfgn (Insulin Glargine-Yfgn 300 Unit/3 Ml Pen) 25 unit SUBQ DAILY [facility] Last Admin: 11/04/23 07:52 Dose: 25 unit Insulin Glargine-yfgn (Insulin Glargine-Yfgn 300 Unit/3 Ml Pen) 2 unit SUBQ QPM [facility] Last Admin: 11/04/23 20:36 Dose: 2 unit Insulin Human Lispro (Insulin Lispro 300 Unit/3 Ml Pen) 1 - 9 unit SUBQ 0800,1200,1700,2100 [facility]; Protocol Last Admin: 11/04/23 20:35 Dose: 3 unit Insulin Human Lispro (Insulin Lispro 300 Unit/3 Ml Pen) 2 unit SUBQ TIDWM [facility]; Protocol Last Admin: 11/04/23 17:07 Dose: 2 unit Lactobacillus Rhamnosus (Lactobacillus Rhamnosus Gg Capsule) 1 cap PO 1200 [facility] Last Admin: 11/04/23 11:54 Dose: 1 cap Levothyroxine Sodium (Levothyroxine 25 Mcg Tablet) 25 mcg PO QDAC [facility] Last Admin: 11/04/23 05:34 Dose: 25 mcg Magnesium Oxide (Magnesium Oxide 400 Mg Tablet) 400 mg PO DAILYWM [facility] Last Admin: 11/04/23 07:49 Dose: 400 mg Multi-Ingredient Ointment (Zinc Oxide 20% Oint 30 Gm Tube) 1 applic TOP PRN PRN PRN Reason: Skin Care Last Admin: 11/04/23 07:50 Dose: 1 applic Ondansetron HCl (Ondansetron Odt 4 Mg Tablet) 4 mg TL Q6HR PRN PRN Reason: Nausea / Vomiting Last Admin: 10/31/23 17:21 Dose: 4 mg Ondansetron HCl (Ondansetron 4 Mg/2 Ml Vial) 4 mg IVP Q6HR PRN PRN Reason: Nausea / Vomiting Oxycodone HCl (Oxycodone 5 Mg Tablet) 5 mg PO Q4HR PRN PRN Reason: Pain 5 to 7 Last Admin: 11/02/23 06:47 Dose: 5 mg Pantoprazole Sodium (Pantoprazole 40 Mg Tablet) 40 mg PO QDAC [facility] Last Admin: 11/04/23 05:33 Dose: 40 mg Polyethylene Glycol (Polyethylene Glycol 3350 17 Gm Packet) 17 gm PO DAILY [facility] Last Admin: 11/04/23 07:51 Dose: Not Given Potassium Chloride (Potassium Chloride 10 Meq Capsule) 20 meq PO DAILYWM [facility] Last Admin: 11/04/23 08:08 Dose: Not Given Multivit/Folic Acid/Iron ( Vitamin Tablet) 1 tab PO DAILY [facility] Last Admin: 11/04/23 07:49 Dose: 1 tab Psyllium Hydrophilic Mucilloid (Psyllium Packet) 1 packet PO DAILY [facility] Last Admin: 11/04/23 11:30 Dose: 1 packet Sodium Chloride (Sodium Chloride Flush 0.9% 10 Ml Syringe) 10 ml IVP 0100,0900,1700 [facility] Last Admin: 11/04/23 17:07 Dose: 10 ml Sodium Chloride (Sodium Chloride Flush 0.9% 10 Ml Syringe) 10 ml IVP PRN PRN PRN Reason: NEEDED PER PROVIDER ORDERS Last Admin: 11/03/23 07:22 Dose: 10 ml Thiamine HCl (Thiamine 100 Mg Tablet) 100 mg PO DAILY [facility] Last Admin: 11/04/23 07:50 Dose: 100 mg Venlafaxine HCl (Venlafaxine Er 75 Mg Capsule) 75 mg PO BID [facility] Last Admin: 11/04/23 20:41 Dose: 75 mg Zinc Oxide (Cod Liver Oil/Zinc Oxide 113 Gm Tube) 113 gm TOP PRN PRN PRN Reason: Skin Care Irbesartan 150 mg PO DAILY 10/16/23 Levothyroxine [Synthroid] 25 mcg PO QDAC 10/16/23 Atorvastatin Calcium 40 mg PO QPM 10/25/23 Empagliflozin [Jardiance] 10 mg PO DAILY 10/25/23 Insulin NPH Hum/Reg Insulin Hm [Humulin 70/30 Kwikpen] 15 unit SUBQ QPM 10/25/23 Insulin NPH Hum/Reg Insulin Hm [Humulin 70/30 Kwikpen] 30 unit SUBQ DAILY 10/25/23 Venlafaxine ER [Effexor ER] 75 mg PO BID 10/25/23
[2023-11-05 05:30] LABS: BASOPHILS # (AUTO) 0.1 10^3/uL (0.0-0.1); BASOPHILS % (AUTO) 0.7 %; EOSINOPHILS # (AUTO) 0.2 10^3/uL (0.0-0.7); HCT - HEMATOCRIT 37.3 % (37.0-47.0); HGB - HEMOGLOBIN 11.5 g/dL (12.0-16.0); LYMPHOCYTES # (AUTO) 3.6 10^3/uL (1.5-3.5); LYMPHOCYTES % (AUTO) 46.3 %; MEAN CORPUSCULAR HEMOGLOBIN 26.6 pg (27.0-31.0); MEAN CORPUSCULAR HGB CONC 30.8 g/dL (32.0-36.0); MEAN CORPUSCULAR VOLUME 86.3 fL (81.0-99.0); MEAN PLATELET VOLUME 10.6 fL (7.9-10.8); MONOCYTES # (AUTO) 0.7 10^3/uL (0.0-1.0); MONOCYTES % (AUTO) 8.9 %; NEUTROPHILS # (AUTO) 3.2 10^3/uL (1.5-6.6); NEUTROPHILS % (AUTO) 41.7 %; PLT - PLATELET COUNT 361 10^3/uL (130-450); RED BLOOD COUNT 4.32 10^6/uL (4.20-5.40); RED CELL DISTRIBUTION WIDTH 14.6 % (12.0-15.0); WHITE BLOOD COUNT 7.7 x10^3/uL (4.8-10.8)
[2023-11-05 05:48] LABS: CALCIUM 9.6 mg/dL (8.5-10.3); CREATININE 0.7 mg/dL (0.6-1.3); POTASSIUM 4.2 mmol/L (3.5-4.5)
[2023-11-05 09:57] LABS: MAGNESIUM 1.7 mg/dL (1.7-2.3); PHOSPHORUS 4.4 mg/dL (2.5-5.0)
--- NOTE | 2023-11-05 17:42 | PROVIDER PROGRESS NOTE ---
Assessment/Plan - Problem List (1) UTI (urinary tract infection) Assessment/Plan: Urine culture grew out yeast. She has completed course of treatment with fluconazole and antiobiotics. (2) TIA Assessment/Plan: IMPROVED For about 4 days she was sleepy, minimally communicative and when touched or spoken to, she started crying tears and screamed when crying. 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 And we suspected she was altered due to DKA, her UTI, and alcohol use with withdrawal. Then on 10/30 she had R arm and leg muscle weakness and a brain MRI was done. It did not show a new stroke Then on 10/31 she became awake, alert, speaking in sentences, able to feed herself and even support herself with both arms (when she fell on 10/31). Therefore she had a TIA. Lipid panel ordered and she is at LDL goal, as per guidelines Plan: Symptoms resolved (3) Fall during current hospitalization Impression: On 10/31 pt was alert enough to work with PT and OT. She stood and walked to chair and was left sitting in chair w/ chair alarm on. Our SW heard her yelling for help, entered room and found her between bed and chair, supporting herself just above the floor with elbows and forearms, one arm on chair rail and other arm on bed mattress. She was helped down to the ground and I was contacted. The chair alarm had not alarmed, it was found to be defective. She was examined by provider: she was c/o pain of buttocks, no other spot. She had not fallen and had not hit her head. She was neurologically intact. Xrays of pelvis and B hips ordered>> these were neg for trauma. Today 11/03, she said she was "dizzy for a minute when got up". Orthostatic VS were checked and were normal. Plan: Continue PT for balance (4) Diarrhea Assessment/Plan: Resolved but patient states she has problems intermittently. Plan: Will give scheduled Metamucil Cont prn Imodium (5) Alcohol use Impression: Daughter stated she drinks 16 oz of vodka daily. Last drink was 10/23/23 per daughter, however unable to verify this with patient. Her CIWA has been scoring 8 today. Toxicology screen upon admission was also positive for benzodiazepines. l Plan: Continue home Venlafaxine Cont supplemental thiamine, multivitamin ordered (6) DM, type 2 Poorly controlled DM with an A1c of 9.7. Estimated average glucose is 232. We learned she was not picking up her insulin regularly. Aslo, her alcohol abuse is adding to elevated serum glu levels Plan: Cont long acting insulin, cont sliding scale with prn SSI, cancel mealtime Insulin. I adjusted all doses down slightly, based on low POC glu results (7) Aortic stenosis Impression: She has a systolic murmur best heard at upper sternal border. An Echo was done a nd confirmed , mild in degree Plan: She will need follow up with Cardiology (8) Electrolyte abnornality Impression: Continue to monitor and replace as needed. 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 Per our pharmacy, she is on lantus and humalog, however this was last filled at the pharmacy in July 2023 (4 mos ago). Also possibly her UTI or alcohol abuse, SGLT-2 inhibitors, could be triggering DKA. With resolution of acidosis, her Insulin drip was stopped on 10/26 and she was transferred out of ICU yesterday 10/27 Plan: Cont fingerstick checks, long acting and sliding scale Insulin coverage, DM diet and hypoglycemia protocol - Current Meds Current Meds: Current Medications Generic Name Dose Route Start Last Admin Trade Name Freq PRN Reason Stop Dose Admin Acetaminophen 650 mg 10/25/23 12:21 11/05/23 14:59 Acetaminophen 325 Mg Tablet PO 650 mg Q4HR PRN Administration Pain 1 to 4, or Fever Aspirin 81 mg 11/02/23 09:00 11/05/23 08:07 Aspirin Ec 81 Mg Tablet PO 81 mg DAILY [facility] Administration Bacitracin 1 packet 11/03/23 20:59 11/03/23 21:43 Bacitracin Zinc Oint 1 Packet TOP 1 packet PRN PRN Administration Skin Care Enoxaparin Sodium 40 mg 10/26/23 09:00 11/05/23 08:06 Enoxaparin 40 Mg/0.4 Ml Syringe SUBQ 40 mg DAILY [facility] Administration Fluconazole 200 mg 10/31/23 09:00 11/05/23 08:07 Fluconazole 100 Mg Tablet PO 11/10/23 00:01 200 mg DAILY [facility] Administration Insulin Glargine-yfgn 25 unit 11/02/23 10:05 11/05/23 08:05 Insulin Glargine-Yfgn 300 Unit/3 Ml Pen SUBQ 25 unit DAILY [facility] Administration Insulin Glargine-yfgn 2 unit 11/02/23 21:00 11/04/23 20:36 Insulin Glargine-Yfgn 300 Unit/3 Ml Pen SUBQ 2 unit QPM [facility] Administration Insulin Human Lispro 1 - 9 unit 10/30/23 08:00 11/05/23 17:15 Insulin Lispro 300 Unit/3 Ml Pen SUBQ 1 unit 0800,1200,1700,2100 [facility] Administration Protocol Insulin Human Lispro 2 unit 11/02/23 12:00 11/05/23 17:15 Insulin Lispro 300 Unit/3 Ml Pen SUBQ 2 unit TIDWM [facility] Administration Protocol Lactobacillus Rhamnosus 1 cap 10/31/23 12:00 11/05/23 11:56 Lactobacillus Rhamnosus Gg Capsule PO 1 cap 1200 [facility] Administration Levothyroxine Sodium 25 mcg 10/30/23 07:00 11/05/23 06:13 Levothyroxine 25 Mcg Tablet PO 25 mcg QDAC [facility] Administration Magnesium Oxide 400 mg 11/02/23 12:00 11/05/23 08:07 Magnesium Oxide 400 Mg Tablet PO 400 mg DAILYWM [facility] Administration Multi-Ingredient Ointment 1 applic 10/29/23 21:14 11/04/23 07:50 Zinc Oxide 20% Oint 30 Gm Tube TOP 1 applic PRN PRN Administration Skin Care Ondansetron HCl 4 mg 10/25/23 12:21 11/05/23 08:17 Ondansetron Odt 4 Mg Tablet TL 4 mg Q6HR PRN Administration Nausea / Vomiting Oxycodone HCl 5 mg 10/25/23 12:21 11/02/23 06:47 Oxycodone 5 Mg Tablet PO 5 mg Q4HR PRN Administration Pain 5 to 7 Pantoprazole Sodium 40 mg 10/26/23 07:00 11/05/23 06:12 Pantoprazole 40 Mg Tablet PO 40 mg QDAC [facility] Administration Polyethylene Glycol 17 gm 10/27/23 09:00 11/05/23 08:07 Polyethylene Glycol 3350 17 Gm Packet PO Not Given DAILY [facility] Potassium Chloride 20 meq 10/28/23 10:16 11/05/23 08:07 Potassium Chloride 10 Meq Capsule PO Not Given DAILYWM [facility] Multivit/Folic Acid/Iron 1 tab 10/26/23 09:00 11/05/23 08:07 Vitamin Tablet PO 1 tab DAILY [facility] Administration Psyllium Hydrophilic Mucilloid 1 packet 11/03/23 13:00 11/05/23 08:06 Psyllium Packet PO 1 packet DAILY [facility] Administration Sodium Chloride 10 ml 10/25/23 17:00 11/05/23 17:18 Sodium Chloride Flush 0.9% 10 Ml Syringe IVP 10 ml 0100,0900,1700 [facility] Administration Sodium Chloride 10 ml 10/25/23 12:21 11/03/23 07:22 Sodium Chloride Flush 0.9% 10 Ml Syringe IVP 10 ml PRN PRN Administration NEEDED PER PROVIDER ORDERS Thiamine HCl 100 mg 10/26/23 09:00 11/05/23 08:07 Thiamine 100 Mg Tablet PO 100 mg DAILY [facility] Administration Venlafaxine HCl 75 mg 10/29/23 12:00 11/05/23 08:07 Venlafaxine Er 75 Mg Capsule PO 75 mg BID [facility] Administration - Lab Result Fish Bone Diagrams: 11/05/23 05:17 11/05/23 05:17 - Additional Planning My Orders: My Active Orders 11/05/23 18:00 Magnesium Oxide [Mag Ox] 400 mg PO ONCE Subjective - Subjective Patient Reports: Other (Patient complaining of some mild stomach upset otherwise no change from yesterday.) Objective Vital Signs: Vital Signs - 24 hr 11/04/23 11/05/23 11/05/23 23:31 10:00 15:29 Temperature 36.6 C 36.5 C 36.7 C Heart Rate [ 74 79 74 Brachial] Respiratory 18 18 16 Rate Blood Pressure 165/71 H 148/71 H 131/70 H [Right Brachial artery] O2 Saturation 95 92 93 Oxygen O2 Source Room air I&O (Last 24 Hrs): Intake and Output Totals x24h 11/03/23 11/04/23 11/05/23 23:59 23:59 23:59 Intake Total 1340 986 780 Balance 1340 986 780 General: Alert, Oriented x3, No acute distress HEENT: Atraumatic, PERRLA, EOMI Neck: Supple, No JVD, No thyromegaly Neuro: Alert, Non Focal Cardiovascular: Other (Positive S1-S2 no EXTR heart sounds.) Respiratory: Other (Good air exchange in all lung [place] no wheezing no crackles.) Abdomen: Normal bowel sounds, Soft, No tenderness Extremities: No cyanosis, No edema Skin: No rashes - Results Results: Laboratory Results WBC 7.7 x10^3/uL (4.8-10.8) 11/05/23 05:17 RBC 4.32 10^6/uL (4.20-5.40) 11/05/23 05:17 Hgb 11.5 g/dL (12.0-16.0) L 11/05/23 05:17 Hct 37.3 % (37.0-47.0) 11/05/23 05:17 MCV 86.3 fL (81.0-99.0) 11/05/23 05:17 MCH 26.6 pg (27.0-31.0) L 11/05/23 05:17 MCHC 30.8 g/dL (32.0-36.0) L 11/05/23 05:17 RDW 14.6 % (12.0-15.0) 11/05/23 05:17 Plt Count 361 10^3/uL (130-450) 11/05/23 05:17 MPV 10.6 fL (7.9-10.8) 11/05/23 05:17 Neut # (Auto) 3.2 10^3/uL (1.5-6.6) 11/05/23 05:17 Lymph # (Auto) 3.6 10^3/uL (1.5-3.5) H 11/05/23 05:17 [place] # (Auto) 0.7 10^3/uL (0.0-1.0) 11/05/23 05:17 Eos # (Auto) 0.2 10^3/uL (0.0-0.7) 11/05/23 05:17 Baso # (Auto) 0.1 10^3/uL (0.0-0.1) 11/05/23 05:17 Absolute Nucleated RBC 0.00 x10^3/uL 11/05/23 05:17 Total Counted 100 11/04/23 05:26 Band Neuts % (Manual) 0 % (0-10) 11/04/23 05:26 Reactive Lymphs % (Man) 4 % 11/04/23 05:26 Abnorm Lymph % (Manual) 0 % 11/04/23 05:26 Nucleated RBC % 0.0 /100WBC 11/05/23 05:17 Neutrophils # (Manual) 2.4 10^3/uL (1.5-6.6) 11/04/23 05:26 Lymphocytes # (Manual) 2.1 10^3/uL (1.5-3.5) 11/04/23 05:26 Monocytes # (Manual) 0.4 10^3/uL (0.0-1.0) 11/04/23 05:26 Eosinophils # (Manual) 0.2 10^3/uL (0-0.7) 11/04/23 05:26 Basophils # (Manual) 0.1 10^3/uL (0-0.1) 11/04/23 05:26 Differential Comment MANUAL DIFFERENTIAL 11/04/23 05:26 Platelet Estimate NORMAL (130-450,000) (NORMAL) 11/04/23 05:26 Platelet Morphology RARE GIANT PLATELETS (NORMAL) 11/03/23 04:59 RBC Morph Micro Appear NORMAL APPEARANCE (NORMAL) 11/04/23 05:26 VBG pH 7.306 (7.31-7.41) L 10/29/23 05:30 VBG pCO2 32.3 mmHg (41-51) L 10/26/23 06:12 VBG pO2 48.4 mmHg (25-47) H 10/26/23 06:12 VBG HCO3 14.2 mmol/L (23-28) L 10/26/23 06:12 VBG Total CO2 15.2 mmol/L (24-29) L 10/26/23 06:12 VBG O2 Saturation 86.6 % (60-80) H 10/26/23 06:12 VBG Base Excess -11.7 mmol/L (-2 - +2) L 10/26/23 06:12 Ionized Calcium 1.09 mmol/L (1.15-1.33) L 10/29/23 05:30 Sodium 138 mmol/L (135-145) 11/05/23 05:17 Potassium 4.2 mmol/L (3.5-4.5) 11/05/23 05:17 Chloride 101 mmol/L (101-111) 11/05/23 05:17 Carbon Dioxide 29 mmol/L (21-32) 11/05/23 05:17 Anion Gap 8.0 (6-13) 11/05/23 05:17 BUN 11 mg/dL (6-20) 11/05/23 05:17 Creatinine 0.7 mg/dL (0.6-1.3) 11/05/23 05:17 Estimated GFR (MDRD) 81 (>89) L 11/05/23 05:17 Glucose 151 mg/dL (74-104) H 11/05/23 05:17 POC Whole Bld Glucose 179 mg/dL (70 - 100) H 11/05/23 16:28 Estimat Average Glucose 232 mg/dL (70-100) H 10/27/23 04:29 Hemoglobin A1c % 9.7 % (4.27-6.07) H 10/27/23 04:29 Calcium 9.6 mg/dL (8.5-10.3) 11/05/23 05:17 Phosphorus 4.4 mg/dL (2.5-5.0) 11/05/23 05:17 Magnesium 1.7 mg/dL (1.7-2.3) 11/05/23 05:17 Total Bilirubin 0.3 mg/dL (0.2-1.0) 10/25/23 05:21 AST 10 IU/L (10-42) 10/25/23 05:21 ALT 9 IU/L (10-60) L 10/25/23 05:21 Alkaline Phosphatase 60 IU/L (42-121) 10/25/23 05:21 Troponin I High Sens 4.9 ng/L (2.3-14.8) 10/25/23 11:15 Total Protein 7.1 g/dL (6.4-8.9) 10/25/23 05:21 Albumin 4.5 g/dL (3.2-5.5) 10/25/23 05:21 Globulin 2.6 g/dL (2.1-4.2) 10/25/23 05:21 Albumin/Globulin Ratio 1.7 (1.0-2.2) 10/25/23 05:21 Triglycerides 255 mg/dL (48-352) 11/02/23 05:15 Cholesterol 132 mg/dL (-200) 11/02/23 05:15 LDL Cholesterol, Calc 59 mg/dL (-129) 11/02/23 05:15 VLDL Cholesterol 51 mg/dL 11/02/23 05:15 HDL Cholesterol 22 mg/dL (60-) L 11/02/23 05:15 LDL/HDL Ratio 2.7 (<4.4) 11/02/23 05:15 Cholesterol/HDL Ratio 6.0 (<4.4) 11/02/23 05:15 Lipase < 10 U/L (11-82) L 10/25/23 05:21 Urine Color LIGHT YELLOW 10/30/23 14:45 Urine Clarity TURBID (CLEAR) 10/30/23 14:45 Urine pH 5.5 PH (5.0-7.5) 10/30/23 14:45 Ur Specific [place] >=1.030 (1.002-1.030) H 10/30/23 14:45 Urine Protein 30 mg/dL (NEGATIVE) H 10/30/23 14:45 Urine Glucose (UA) >=1000 mg/dL (NEGATIVE) H 10/30/23 14:45 Urine Ketones NEGATIVE mg/dL (NEGATIVE) 10/30/23 14:45 Urine Occult Blood LARGE (NEGATIVE) H 10/30/23 14:45 Urine Nitrite NEGATIVE (NEGATIVE) 10/30/23 14:45 Urine Bilirubin NEGATIVE (NEGATIVE) 10/30/23 14:45 Urine Urobilinogen 0.2 (NORMAL) E.U./dL (NORMAL) 10/30/23 14:45 Ur Leukocyte Esterase SMALL (NEGATIVE) H 10/30/23 14:45 Urine RBC TNTC /HPF (0-5) H 10/30/23 14:45 Urine WBC >25 /HPF (0-5) H 10/30/23 14:45 Urine WBC Clumps PRESENT 10/30/23 14:45 Ur Squamous Epith Cells NONE SEEN (<= Few) 10/30/23 14:45 Urine Bacteria Many /HPF (None Seen) H 10/30/23 14:45 Urine Yeast PRESENT 10/30/23 14:45 Ur Microscopic Review INDICATED 10/25/23 16:40 Urine Culture Comments INDICATED 10/30/23 14:45 Nasal Adenovirus (PCR) NOT DETECTED 10/30/23 12:42 Nasal B. parapertussis DNA (PCR) NOT DETECTED 10/30/23 12:42 Nasal Coronavir 229E PCR NOT DETECTED 10/30/23 12:42 Nasal Coronavir HKU1 PCR NOT DETECTED 10/30/23 12:42 Nasal Coronavir NL63 PCR NOT DETECTED 10/30/23 12:42 Nasal Coronavir OC43 PCR NOT DETECTED 10/30/23 12:42 Nasal Enterovir/Rhinovir PCR NOT DETECTED 10/30/23 12:42 Nasal Influ A H1 2009 PCR DETECTED A 10/30/23 12:42 Nasal Influenza B PCR NOT DETECTED 10/30/23 12:42 Nasal Influenza A PCR NOT DETECTED 10/25/23 11:49 Nasal Parainfluen 1 PCR NOT DETECTED 10/30/23 12:42 Nasal Parainfluen 2 PCR NOT DETECTED 10/30/23 12:42 Nasal Parainfluen 3 PCR NOT DETECTED 10/30/23 12:42 Nasal Parainfluen 4 PCR NOT DETECTED 10/30/23 12:42 Nasal RSV (PCR) NOT DETECTED 10/30/23 12:42 Nasal Screen MRSA (PCR) NEGATIVE (NEGATIVE) 10/25/23 14:00 Nasal B.pertussis DNA PCR NOT DETECTED 10/30/23 12:42 Nasal C.pneumoniae (PCR) NOT DETECTED 10/30/23 12:42 David Human Metapneumo PCR NOT DETECTED 10/30/23 12:42 Nasal M.pneumoniae (PCR) NOT DETECTED 10/30/23 12:42 Nasal SARS-CoV-2 (PCR) NOT DETECTED 10/30/23 12:42 Stl C. diff Tox B Gene NEGATIVE (NEGATIVE) 10/31/23 Unknown Urine Opiates Screen NEGATIVE (NEGATIVE) 10/25/23 05:58 Ur Buprenorphine Scrn NEGATIVE (NEGATIVE) 10/25/23 05:58 Ur Oxycodone Screen NEGATIVE (NEGATIVE) 10/25/23 05:58 Urine Methadone Screen NEGATIVE (NEGATIVE) 10/25/23 05:58 Ur Barbiturates Screen NEGATIVE (NEGATIVE) 10/25/23 05:58 Ur Tricyclics Screen NEGATIVE (NEGATIVE) 10/25/23 05:58 Ur Phencyclidine Scrn NEGATIVE (NEGATIVE) 10/25/23 05:58 Ur Amphetamine Screen NEGATIVE (NEGATIVE) 10/25/23 05:58 U Methamphetamines Scrn NEGATIVE (NEGATIVE) 10/25/23 05:58 U Benzodiazepines Scrn POSITIVE (NEGATIVE) H 10/25/23 05:58 Urine Cocaine Screen NEGATIVE (NEGATIVE) 10/25/23 05:58 U Cannabinoids Screen NEGATIVE (NEGATIVE) 10/25/23 05:58 Ur Drug Screen Comment CUTOFF CONC BELOW: 10/25/23 05:58 Ethyl Alcohol < 10.0 mg/dL 10/25/23 05:21 Serum Ketones SMALL (NEGATIVE) H 10/26/23 07:30 ABX Reporting Has patient been on IV antibiotics over the past 48 hours?: No Current Medications - Current Medications Current Medications: Active Medications Acetaminophen (Acetaminophen 325 Mg Tablet) 650 mg PO Q4HR PRN PRN Reason: Pain 1 to 4, or Fever Last Admin: 11/05/23 14:59 Dose: 650 mg Aspirin (Aspirin Ec 81 Mg Tablet) 81 mg PO DAILY [facility] Last Admin: 11/05/23 08:07 Dose: 81 mg Bacitracin (Bacitracin Zinc Oint 1 Packet) 1 packet TOP PRN PRN PRN Reason: Skin Care Last Admin: 11/03/23 21:43 Dose: 1 packet Enoxaparin Sodium (Enoxaparin 40 Mg/0.4 Ml Syringe) 40 mg SUBQ DAILY [facility] Last Admin: 11/05/23 08:06 Dose: 40 mg Fluconazole (Fluconazole 100 Mg Tablet) 200 mg PO DAILY [facility] Stop: 11/10/23 00:01 Last Admin: 11/05/23 08:07 Dose: 200 mg Insulin Glargine-yfgn (Insulin Glargine-Yfgn 300 Unit/3 Ml Pen) 25 unit SUBQ DAILY [facility] Last Admin: 11/05/23 08:05 Dose: 25 unit Insulin Glargine-yfgn (Insulin Glargine-Yfgn 300 Unit/3 Ml Pen) 2 unit SUBQ QPM [facility] Last Admin: 11/04/23 20:36 Dose: 2 unit Insulin Human Lispro (Insulin Lispro 300 Unit/3 Ml Pen) 1 - 9 unit SUBQ 0800,1200,1700,2100 [facility]; Protocol Last Admin: 11/05/23 17:15 Dose: 1 unit Insulin Human Lispro (Insulin Lispro 300 Unit/3 Ml Pen) 2 unit SUBQ TIDWM [facility]; Protocol Last Admin: 11/05/23 17:15 Dose: 2 unit Lactobacillus Rhamnosus (Lactobacillus Rhamnosus Gg Capsule) 1 cap PO 1200 [facility] Last Admin: 11/05/23 11:56 Dose: 1 cap Levothyroxine Sodium (Levothyroxine 25 Mcg Tablet) 25 mcg PO QDAC [facility] Last Admin: 11/05/23 06:13 Dose: 25 mcg Magnesium Oxide (Magnesium Oxide 400 Mg Tablet) 400 mg PO DAILYWM [facility] Last Admin: 11/05/23 08:07 Dose: 400 mg Magnesium Oxide (Magnesium Oxide 400 Mg Tablet) 400 mg PO ONCE [facility] Stop: 11/05/23 22:00 Multi-Ingredient Ointment (Zinc Oxide 20% Oint 30 Gm Tube) 1 applic TOP PRN PRN PRN Reason: Skin Care Last Admin: 11/04/23 07:50 Dose: 1 applic Ondansetron HCl (Ondansetron Odt 4 Mg Tablet) 4 mg TL Q6HR PRN PRN Reason: Nausea / Vomiting Last Admin: 11/05/23 08:17 Dose: 4 mg Ondansetron HCl (Ondansetron 4 Mg/2 Ml Vial) 4 mg IVP Q6HR PRN PRN Reason: Nausea / Vomiting Oxycodone HCl (Oxycodone 5 Mg Tablet) 5 mg PO Q4HR PRN PRN Reason: Pain 5 to 7 Last Admin: 11/02/23 06:47 Dose: 5 mg Pantoprazole Sodium (Pantoprazole 40 Mg Tablet) 40 mg PO QDAC [facility] Last Admin: 11/05/23 06:12 Dose: 40 mg Polyethylene Glycol (Polyethylene Glycol 3350 17 Gm Packet) 17 gm PO DAILY [facility] Last Admin: 11/05/23 08:07 Dose: Not Given Potassium Chloride (Potassium Chloride 10 Meq Capsule) [facility] [place] Last Admin: 11/05/23 08:07 Dose: Not Given Multivit/Folic Acid/Iron ( Vitamin Tablet) 1 tab PO DAILY [facility] Last Admin: 11/05/23 08:07 Dose: 1 tab Psyllium Hydrophilic Mucilloid (Psyllium Packet) 1 packet PO DAILY [facility] Last Admin: 11/05/23 08:06 Dose: 1 packet Sodium Chloride (Sodium Chloride Flush 0.9% 10 Ml Syringe) 10 ml IVP 0100,0900,1700 [facility] Last Admin: 11/05/23 17:18 Dose: 10 ml Sodium Chloride (Sodium Chloride Flush 0.9% 10 Ml Syringe) 10 ml IVP PRN PRN PRN Reason: NEEDED PER PROVIDER ORDERS Last Admin: 11/03/23 07:22 Dose: 10 ml Thiamine HCl (Thiamine 100 Mg Tablet) 100 mg PO DAILY [facility] Last Admin: 11/05/23 08:07 Dose: 100 mg Venlafaxine HCl (Venlafaxine Er 75 Mg Capsule) 75 mg PO BID [facility] Last Admin: 11/05/23 08:07 Dose: 75 mg Zinc Oxide (Cod Liver Oil/Zinc Oxide 113 Gm Tube) 113 gm TOP PRN PRN PRN Reason: Skin Care Irbesartan 150 mg PO DAILY 10/16/23 Levothyroxine [Synthroid] 25 mcg PO QDAC 10/16/23 Atorvastatin Calcium 40 mg PO QPM 10/25/23 Empagliflozin [Jardiance] 10 mg PO DAILY 10/25/23 Insulin NPH Hum/Reg Insulin Hm [Humulin 70/30 Kwikpen] 15 unit SUBQ QPM 10/25/23 Insulin NPH Hum/Reg Insulin Hm [Humulin 70/30 Kwikpen] 30 unit SUBQ DAILY 10/25/23 Venlafaxine ER [Effexor ER] 75 mg PO BID 10/25/23
[2023-11-05] MEDS: MAGNESIUM OXIDE 400 MG TABLET PO SCH (17:56)
[2023-11-06 08:16] VITALS: O2SAT 96
--- NOTE | 2023-11-06 08:34 | Discharge Plan ---
Discharge Plan for SNF / [facility] - Discharge Plan And Transition Orders Problem Reviewed?: Yes Disposition: 03 SNF DC/Xfer Condition: Stable Allergies and Adverse Reactions: Allergies Allergy/AdvReac Type Severity Reaction Status Date / Time ampicillin Allergy Rash Verified 10/25/23 04:58 cefuroxime Allergy Unknown Verified 10/25/23 04:58 heparin Allergy Unknown Verified 10/25/23 04:58 Health Concerns: Corine Sol is a 78 year old woman admitted on October 25, 2023 with a chief complaint of altered mental status and was found to have diabetic ketoacidosis. Laboratory workup revealed a urinary tract infection was felt to be the etiology of her diabetic ketoacidosis. She was admitted to the hospital and treated with IV fluids and insulin for diabetic ketoacidosis. Jardiance was discontinued due to the fact that she developed diabetic ketoacidosis. Treatment was initiated with levofloxacin for her urinary tract infection. The etiology of her altered mental status was not clear and thought to be related to her diabetic ketoacidosis, infection and alcohol withdrawal. Patient has a past medical history significant for alcohol abuse. Her family reported that she drinks approximately 16 ounces of vodka daily. The CIWA protocol was initiated. A murmur was noted on her physical exam and echo cardiogram was performed on October 28, 2023. Echocardiogram revealed an ejection fraction of 55%. The left ventricular size is normal. The right ventricle was normal in size. Right ventricular function is normal. The aortic valve is mildly calcified. Patient had mild aortic stenosis. the mitral valve leaflets were mildly thickened and calcified. Urine culture grew out yeast and treatment was initiated with fluconazole.Blood cultures obtained on admission were negative.Levofloxacin was discontinued and treatment was initiated with empiric ceftriaxone for possible bacterial infection given the fact that patient had many bacteria in her urine. On day 5 of admission patient complained of right arm and leg weakness and MRI of the brain did not reveal any evidence of acute stroke. Her symptoms resolved within 24 hours and were thought to be secondary to a transient ischemic attack. Patient is now stable for transfer to care home facility. Plan of Treatment: Corine Sol is being transferred to [facility] for rehab with goal of possibly returning to home. Care Goals: Goal is to return to independent functioning and possibly return to independent living. Assessment: (1) UTI (urinary tract infection) Assessment/Plan: Urine culture grew out yeast. She has completed course of treatment with fluconazole and antibiotics. (2) TIA Assessment/Plan: IMPROVED For about 4 days she was sleepy, minimally communicative and when touched or spoken to, she started crying tears and screamed when crying. 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 And we suspected she was altered due to DKA, her UTI, and alcohol use with withdrawal. Then on 10/30 she had R arm and leg muscle weakness and a brain MRI was done. It did not show a new stroke Then on 10/31 she became awake, alert, speaking in sentences, able to feed herself and even support herself with both arms (when she fell on 10/31). Therefore she had a TIA. Lipid panel ordered and she is at LDL goal, as per guidelines Plan: Symptoms resolved (3) Fall during current hospitalization Impression: On 10/31 pt was alert enough to work with PT and OT. She stood and walked to chair and was left sitting in chair w/ chair alarm on. Our SW heard her yelling for help, entered room and found her between bed and chair, supporting herself just above the floor with elbows and forearms, one arm on chair rail and other arm on bed mattress. She was helped down to the ground and I was contacted. The chair alarm had not alarmed, it was found to be defective. She was examined by provider: she was c/o pain of buttocks, no other spot. She had not fallen and had not hit her head. She was neurologically intact. Xrays of pelvis and B hips ordered>> these were neg for trauma. Today 11/03, she said she was "dizzy for a minute when got up". Orthostatic VS were checked and were normal. Plan: Continue PT for balance (4) Diarrhea Assessment/Plan: Resolved but patient states she has problems intermittently. Plan: Will give scheduled Metamucil Cont prn Imodium (5) Alcohol use Impression: Daughter stated she drinks 16 oz of vodka daily. Last drink was 10/23/23 per hilaria delgado, however unable to verify this with patient. Her CIWA has been scoring 8 today. Toxicology screen upon admission was also positive for benzodiazepines. l Plan: Continue home Venlafaxine Cont supplemental thiamine, multivitamin ordered (6) DM, type 2 Poorly controlled DM with an A1c of 9.7. Estimated average glucose is 232. We learned she was not picking up her insulin regularly. Aslo, her alcohol abuse is adding to elevated serum glu levels Plan: Cont long acting insulin, cont sliding scale with prn SSI, cancel mealtime Insulin. I adjusted all doses down slightly, based on low POC glu results (7) Aortic stenosis Impression: She has a systolic murmur best heard at upper sternal border. An Echo was done and confirmed , mild in degree Plan: She will need follow up with Cardiology (8) Electrolyte abnornality Impression: Continue to monitor and replace as needed. 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 Per our pharmacy, she is on lantus and humalog, however this was last filled at the pharmacy in July 2023 (4 mos ago). Also possibly her UTI or alcohol abuse, SGLT-2 inhibitors, could be triggering DKA. With resolution of acidosis, her Insulin drip was stopped on 10/26 and she was transferred out of ICU yesterday 10/27 Plan: Cont fingerstick checks, long acting and sliding scale Insulin coverage, DM diet and hypoglycemia protocol - SNF / [facility] Transition Orders Admit to (Facility): [facility] Discharge Diagnosis: 1. Urinary tract infection 2. Transient ischemic attack 3. Fall during hospitalization 4. Diarrhea 5. Alcohol use 6. Diabetes mellitus type 2 7. Mild aortic stenosis 8. Electrolyte abnormality 9. Diabetic ketoacidosis Medicare Certification Statement: I certify that [facility] care home care is medically necessary on a continuing basis for any of the conditions for which she/he is receiving care during hospitalization. Notify PCP of admission and forward orders to primary provider for signature. Weight on admission and: Weekly Other Notification Orders: Call PCP immediately if patient develops dyspnea, chest pain/tightness or edema. House Bowel Program: Yes Additional Bowel Program Orders: If no BM after 2 days, nurse may give M.O.M. 30ml PO PRN and/or ducolax Supp 1 TX and/or MARGARITA 250mg P.O., and/or senna 1-2 tabs PO. On day 3 nurse may give repeat above order until residents constipation is resolved. Annual Influenza Vaccine (between Jun 06 and January 03): Yes Two-step PPD per [facility] [phone] or approved exception documents: Yes Medication Orders: PLEASE REFER TO THE DISCHARGE MEDICATION LIST. Insulin Orders?: Yes - Diet Type: No added sugar Texture: Dysphagia mech Liquids: Thin May have monthly special meal: Yes (No added sugar) - Therapies | Activity Therapy: Evaluation | Treat if indicated: PT, OT Rehabilitation Potential: Maximize functional status, Return to independent living Activity: Activity as Tolerated Weight Bearing: Full Weight Assistance Devices: Walker Follow Up: Dr. Sumaya Singleton after leaving care home facility Insulin Orders - SNF Basal | Correction | Custom Orders: Diagnosis: Diabetes Initiate hypo and hyperglycemia protocols for BG <70 and BG >375. May check BG PRN for signs/symptoms of dysglycemia. Frequency of BG checks: [AC/Meal/HS] Basal Insulin: [x] Lantus 100 units / ml inject subq as follows: [25 units subcutaneously daily] [x] Other: [Lispro 2 Unites subcutaneously three times a day with meals. ] Correction Insulin: - Select the type of insulin below [Choose: Novolog/Humalog]100 units /ml insulin inject subq per orders indicate below [] LOW DOSE [x] MODERATE DOSE [] MODERATE/HIGH DOSE [] HIGH DOSE GB UNITS GB UNITS GB UNITS GB UNITS 61-140 0 UNITS 61-140 0 UNITS 61-140 0 UNITS 61-140 0 UNITS 141-175 1 UNITS 141-175 1 UNITS 141-175 2 UNITS 141-175 3 UNITS 176-225 2 UNITS 176-225 3 UNITS 176-225 4 UNITS 176-225 5 UNITS 226-275 3 UNITS 226-275 5 UNITS 226-275 6 UNITS 226-275 7 UNITS 276-325 4 UNITS 276-325 7 UNITS 276-325 8 UNITS 276-325 9 UNITS 326-375 5 UNITS 326-375 9 UNITS 326-375 10 UNITS 326-375 11 UNITS >375 CONTACT MD >375 CONTACT MD >375 CONTACT MD >375 CONTACT MD Custom Dosing: [Choose: Novolog/Humalog] 100 units/ml Insulin inject subq as follows: GB Units 61-140 [] Units 141-175 [] Units 176-225 [] Units 226-275 [] Units 276-325 []Units 326-375 [] Units >375 Contact MD
--- NOTE | 2023-11-06 08:34 | DISCHARGE SUMMARY ---
"Discharge Summary Admit Date: 10/25/23 Discharge Date: 11/06/23 Discharging Provider: Elliot Lozano MD Code Status: Attempt Resuscitation Condition at Discharge: Stable Discharge Disposition: 03 SNF DC/Xfer Discharge Facility Name: [facility] - DIAGNOSES Admission Diagnoses: (1) UTI (urinary tract infection) (2) TIA (3) Fall during current hospitalization (4) Diarrhea (5) Alcohol use (6) DM, type 2 (7) Aortic stenosis (8) Electrolyte abnornality (9) DKA, type 2 Discharge Diagnoses with Status of Each Condition: (1) UTI (urinary tract infection) (2) TIA (3) Fall during current hospitalization (4) Diarrhea (5) Alcohol use (6) DM, type 2 (7) Aortic stenosis (8) Electrolyte abnornality (9) DKA, type 2 - HPI History of Present Illness: Corine Sol is a 78 year old woman admitted on October 25, 2023 with a chief complaint of altered mental status and was found to have diabetic ketoacidosis. Laboratory workup revealed a urinary tract infection was felt to be the etiology of her diabetic ketoacidosis. She was admitted to the hospital and treated with IV fluids and insulin for diabetic ketoacidosis. Jardiance was discontinued due to the fact that she developed diabetic ketoacidosis. Treatment was initiated with levofloxacin for her urinary tract infection. The etiology of her altered mental status was not clear and thought to be related to her diabetic ketoacidosis, infection and alcohol withdrawal. Patient has a past medical history significant for alcohol abuse. Her family reported that she drinks approximately 16 ounces of vodka daily. The CIWA protocol was initiated. A murmur was noted on her physical exam and echo cardiogram was performed on October 28, 2023. Echocardiogram revealed an ejection fraction of 55%. The left ventricular size is normal. The right ventricle was normal in size. Right ventricular function is normal. The aortic valve is mildly calcified. Patient had mild aortic stenosis. the mitral valve leaflets were mildly thickened and calcified. Urine culture grew out yeast and treatment was initiated with fluconazole.Blood cultures obtained on admission were negative.Levofloxacin was discontinued and treatment was initiated with empiric ceftriaxone for possible bacterial infection given the fact that patient had many bacteria in her urine. On day 5 of admission patient complained of right arm and leg weakness and MRI of the brain did not reveal any evidence of acute stroke. Her symptoms resolved within 24 hours and were thought to be secondary to a transient ischemic attack. Patient is now [facility] for [facility]. - CONSULTS | PROCEDURES Procedures: 10/29/2023 Brain MRI - HOSPITAL COURSE Hospital Course: See History of Present Illness - ALLERGIES Allergies/Adverse Reactions: Allergies Allergy/AdvReac Type Severity Reaction Status Date / Time ampicillin Allergy Rash Verified 10/25/23 04:58 cefuroxime Allergy Unknown Verified 10/25/23 04:58 heparin Allergy Unknown Verified 10/25/23 04:58 - MEDICATIONS Home Medications: Ambulatory Orders Medication Instructions Recorded Confirmed Irbesartan 150 mg PO DAILY 10/16/23 10/25/23 Aspirin EC [Ecotrin] 81 mg PO DAILY tab 11/06/23 Bacitracin Zinc Oint [Bacitracin] 1 packet TOP PRN PRN packet 11/06/23 Cod Liver Oil/Zinc Oxide [Desitin] 113 gm TOP PRN PRN each 11/06/23 Insulin Glargine-Yfgn [Semglee] 25 unit SUBQ DAILY ml 11/06/23 Insulin Lispro [Humalog Kwikpen 1 - 9 unit SUBQ 11/06/23 U-100] 0800,1200,1700,2100 ml Insulin Lispro [Humalog Kwikpen 2 unit SUBQ TIDWM ml 11/06/23 U-100] Lactobacillus Rhamnosus GG 1 cap PO 1200 cap 11/06/23 [Culturelle] Levothyroxine [Synthroid] 25 mcg PO QDAC tab 11/06/23 Magnesium Oxide [Mag Ox] 400 mg PO DAILYWM tab 11/06/23 Potassium Chloride [Micro-K] 20 meq PO DAILYWM cap 11/06/23 Psyllium [Metamucil] 1 packet PO DAILY packet 11/06/23 Thiamine [Vitamin B-1] 100 mg PO DAILY tab 11/06/23 Venlafaxine ER [Effexor ER] 75 mg PO BID cap 11/06/23 Zinc Oxide 20% Oint [Zinc Oxide] 1 applic TOP PRN PRN each 11/06/23 - PHYSICAL EXAM AT DISCHARGE General Appearance: positive: No acute distress Eyes Bilateral: positive: PERRL, EOMI ENT: positive: Pharynx nml, No signs of dehydration Neck: positive: Thyroid nml, No JVD, Trachea midline Respiratory: positive: Chest non-tender, No respiratory distress, Breath sounds nml, Wheezes Cardiovascular: positive: Regular rate & rhythm, No murmur, No gallop Abdomen: positive: Non-tender, No organomegaly, Nml bowel sounds, No distention Skin: positive: No rash Extremities: positive: No pedal edema - LABS Result Diagrams: 11/05/23 05:17 11/05/23 05:17 - QUALITY (Female Hip Fx Only) Was patient sent home on osteoporosis medication?: No - TIME SPENT Time Spent in Discharge (Minutes): 28"
[2023-11-06 12:25] VITALS: BP 141/81
== END 2023-11-06 13:40 | DRG 689 ==
LOC: EDUNIT# → ED 04:43 → ICU 12:21 → MS2 10-27 18:35
PROVIDERS: ADMIT Specialist; ATTEND Internal Medicine
DX: N39.0 Urinary tract infection, site not specified (principal); R47.81 Slurred speech; E11.10 Type 2 diabetes mellitus with ketoacidosis without coma; Z11.52 Encounter for screening for COVID-19; Z79.84 Long term (current) use of oral hypoglycemic drugs; F10.139 Alcohol abuse with withdrawal, unspecified; G45.9 Transient cerebral ischemic attack, unspecified; R19.7 Diarrhea, unspecified; I35.0 Nonrheumatic aortic (valve) stenosis; I25.2 Old myocardial infarction; E78.5 Hyperlipidemia, unspecified; M79.606 Pain in leg, unspecified; W07.XXXA Fall from chair, initial encounter; Y92.230 Patient room in hospital as the place of occurrence of the external cause; E87.6 Hypokalemia; E83.42 Hypomagnesemia; M62.81 Muscle weakness (generalized); R42 Dizziness and giddiness; Z66 Do not resuscitate; Z79.4 Long term (current) use of insulin; Z79.899 Other long term (current) drug therapy; Z86.73 Personal history of transient ischemic attack (TIA), and cerebral infarction without residual deficits; Z91.81 History of falling
CPT/HCPCS: 36415; 70450; 70551; 71045; 73521; 80048; 80053; 80061; 80306; 81001; 82009; 82330; 82803; 83036; 83690; 83735; 84100; 84132; 84484; 85025; 85027; 87040; 87086; 87150; 87493; 87633; 92610; 93005; 93307; 96361; 96365; 97162; 97166; 97530; 97535; 99285; 99291; A9270; G0480; J1650; J1815; J2060; Q0162; 80320; 81003; 83721

== ENCOUNTER 2023-11-14 18:41 | Outpatient (CLI) | payer MEDICARE | END 2023-11-14 18:42 | disposition EMS.NT | LOC: EMS 18:41 | DX: E11.65 Type 2 diabetes mellitus with hyperglycemia (principal); Z79.4 Long term (current) use of insulin ==

== ENCOUNTER 2023-12-13 08:00 | Outpatient (CLI) | payer MEDICARE | END 2023-12-13 23:59 | disposition home or self-care (01) | LOC: LAB.S 08:00 | PROVIDERS: ATTEND Physician Assistant Medical | DX: N39.0 Urinary tract infection, site not specified (principal) | CPT/HCPCS: 87086; 87181 ==

== ENCOUNTER 2024-02-15 00:15 | Outpatient (CLI) | payer MEDICARE | END 2024-02-15 21:46 | disposition EMS.NT | LOC: EMS 00:15 | DX: E11.649 Type 2 diabetes mellitus with hypoglycemia without coma (principal); Z79.4 Long term (current) use of insulin ==

== ENCOUNTER 2024-02-16 04:08 | Outpatient (CLI) | payer MEDICARE | END 2024-02-16 22:56 | disposition EMS.NT | LOC: EMS 04:08 | DX: E11.649 Type 2 diabetes mellitus with hypoglycemia without coma (principal); R51.9 Headache, unspecified; R11.0 Nausea; Z79.4 Long term (current) use of insulin ==